=== PATIENT | female | born 1960 | race Caucasian/White ===

== ENCOUNTER → 2021-02-04 13:17 | Outpatient (CLI) | payer BC, SELFPAY ==
--- NOTE | ~2021-02-04 | DEXA_ITS ---
Bone Density Report Name: Anel Fernandez Age: 60 Sex: Female Ethnicity: White Date of : 1960 Indication: postmenopausal; screening for osteoporosis; height loss; Referring Provider: Pancho, Alla Study: Bone densitometry was performed. Exam Date: February 04, 2021 Accession number: [id number] Bone Density: Region BMD T-score Z-score Classification AP Spine (L1-L4) 1.136 0.8 2.1 Normal Femoral Neck (Left) 0.902 0.5 1.7 Normal Total Hip (Left) 1.097 1.3 2.1 Normal Femoral Neck (Right) 0.832 -0.1 1.1 Normal Total Hip (Right) 1.009 0.6 1.4 Normal Total Hip Mean 1.053 1.0 1.8 Normal World Health Organization criteria for BMD impression classify patients as: Normal (T-score at or above -1.0), Osteopenia (T-score between -1.0 and -2.5), or Osteoporosis (T-score at or below -2.5). 10-year Fracture Risk: FRAX not reported because: All T-scores for Spine Total, Hip Total, Femoral Neck at or above -1.0 Clinical Information Provided by Patient: Has used the following medications: Vitamin D, Calcium Patient maximum height was 69 Menopause Age: 42 No regular weight bearing exercise Drinks caffeinated beverages Onset of menses at age 16 Number of children 3 Impression: The patient has normal bone mass. Discussion: BONE DENSITY IS ABOVE THE MINIMUM DESIRABLE LEVEL AT ALL SKELETAL SITES TESTED. This patient?s bone mineral density is above the minimum desirable level (T-score -1.0 or better) at all sites measured. The patient should follow a healthful lifestyle (good nutrition with adequate calcium and vitamin D, and appropriate weight-bearing exercise). Follow-Up: Consider repeating this study in 5 years or sooner if there is some new clinical indication. Reported by: GULSHAN on 02/04/2021 2:08:00 PM. Reviewed, dictated and finalized at location AShaheen NAVA
--- NOTE | ~2021-02-04 | MM_ITS ---
EXAMINATION: MM screening jessie BI w joan HISTORY: Screening TECHNIQUE: Craniocaudal and mediolateral oblique 3-D tomosynthesis images were obtained and synthetic 2-D images were generated. CAD analysis was submitted and interpreted. COMPARISON: 01/25/2017 BREAST PARENCHYMAL COMPOSITION: There are scattered areas of fibroglandular density. FINDINGS: There are developing asymmetries in the right breast. There are stable left breast masses. No new masses, calcifications or architectural distortion in the left breast to suggest malignancy. IMPRESSION: 1. Developing right breast asymmetries. 2. Additional mammographic views and possible breast ultrasound are recommended. BI-RADS Category 0: Incomplete: Needs additional imaging evaluation. Reviewed, dictated and finalized at location A. IMPRESSION: 1. Developing right breast asymmetries. 2. Additional mammographic views and possible breast ultrasound are recommended . BI-RADS Category 0: Incomplete: Needs additional imaging evaluation.
== END ==
PROVIDERS: PCP Physician Assistant; Visit Provider Physician Assistant
DX: Z12.31 Encounter for screening mammogram for malignant neoplasm of breast (principal); Z78.0 Asymptomatic menopausal state; R92.8 Other abnormal and inconclusive findings on diagnostic imaging of breast
CPT/HCPCS: 77063; 77067; 77080

== ENCOUNTER → 2021-02-15 09:14 | Outpatient (CLI) | payer BC, SELFPAY ==
--- NOTE | ~2021-02-15 | MMUS_ITS ---
EXAMINATION: MM diagnostic jessie RT w joan, US breast RT limited HISTORY: Right breast asymmetries on screening mammogram TECHNIQUE: Additional 3-D tomosynthesis images of the right breast were performed and synthetic 2-D i mages were generated. CAD analysis was submitted and interpreted. High resolution limited right breas t ultrasound was performed. COMPARISON: 02/04/2021, 01/25/2017 FINDINGS: MAMMOGRAPHIC FINDINGS: There is a 5 mm oval, obscured, low density mass in the middle third of the lower breast 6:00 locatio n 5.5 cm from the nipple. Asymmetry in the upper right breast described on screening mammogram does n ot persist with spot compression. ULTRASOUND: There is a 5 mm a 3 mm oval, circumscribed, parallel, hypoechoic mass with no posterior features or i nternal vascularity at the 5:00 location 3 cm from the nipple. A 5 mm x 3 mm mass with similar sonogr aphic features is present at the 7:00 location 3 cm from the nipple. IMPRESSION: 1. Probably benign right breast masses. 2. Recommend 6 month follow-up right diagnostic mammogram and ultrasound. BI-RADS category 3, probably benign findings. Reviewed, dictated and finalized at location A. IMPRESSION: 1. Probably benign right breast masses. 2. Recommend 6 month follow-up right diagnostic mammogram and ultrasound. BI-RADS category 3, probably benign findings.
== END ==
PROVIDERS: PCP Physician Assistant; Visit Provider Physician Assistant
DX: R92.8 Other abnormal and inconclusive findings on diagnostic imaging of breast (principal)
CPT/HCPCS: 76642; 77061; 77065; G0279

== ENCOUNTER → 2021-08-17 07:44 | Outpatient (CLI) | payer BC, SELFPAY ==
--- NOTE | ~2021-08-17 | MMUS_ITS ---
EXAMINATION: MM diagnostic jessie RT w joan, US breast RT limited HISTORY: Follow-up right breast masses TECHNIQUE: Additional 3-D tomosynthesis images of the right breast were performed and synthetic 2-D i mages were generated. CAD analysis was submitted and interpreted. High resolution Limited right breas t ultrasound was performed. COMPARISON: Comparison to multiple prior studies sequentially, with oldest reviewed study dated 01/25. BREAST PARENCHYMAL COMPOSITION: Breast composed of scattered areas of fibroglandular density FINDINGS: MAMMOGRAPHIC FINDINGS: There is a small mass in the lower central aspect of the right breast, unchanged from prior examinati ons dating back to 02/04/2021. No suspicious calcifications or architectural distortion. ULTRASOUND: Limited right breast ultrasound: At 5:00, 3 cm from the nipple there is a 4 mm cyst. At 7:00, 3 cm fr om the nipple there is a 4 mm oval hypoechoic mass with parallel orientation, no posterior features o r internal vascularity, consistent with a minimally complicated cyst. The cysts are not significantly changed from prior study. No suspicious masses to suggest malignancy. IMPRESSION: 1. No evidence for malignancy in the right breast. Benign findings. 2. Routine yearly screening mammogram and regular clinical breast examination are recommended. BI-RADS Category 2: Benign finding(s). Reviewed, dictated and finalized at location A. ARCH SCHOLAR IMPRESSION: 1. No evidence for malignancy in the right breast. Benign findings. 2. Routine yearly screening mammogram and regular clinical breast examination a re recommended. BI-RADS Category 2: Benign finding(s).
== END ==
PROVIDERS: PCP Physician Assistant; Visit Provider Physician Assistant
DX: R92.8 Other abnormal and inconclusive findings on diagnostic imaging of breast (principal)
CPT/HCPCS: 76642; 77061; 77065; G0279

== ENCOUNTER 2024-01-01 16:18 | Observation (INO) | payer BC, SELFPAY ==
[2024-01-01] VITALS (21 sets, daily range): BP systolic 114–168; BP diastolic 75–105; PULSE 64–83; RESP 13–36; TEMP 36.2–36.5; O2SAT 92–100; BMI 37.8; BMI 38.0
--- NOTE | ~2024-01-01 | NM_ITS ---
EXAMINATION: NM john stress w perfusion DATE: 01/02/2024 13:16 INDICATION: Chest pain TECHNIQUE: Rest images were obtained following intravenous administration of 9.44 mCi Tc99m tetrofosm in (Myoview). The patient was infused intravenously with Lexiscan (Regadenoson). Then, 30.2 mCi Tc99m tetrofosmin (Myoview) was administered intravenously, and stress images were obtained. Data was zena nstructed into short axis and horizontal and vertical long axis SPECT images. Gated SPECT images were also obtained. COMPARISON: None. FINDINGS: There is no definite reversible or fixed perfusion abnormality to suggest ischemia or infar ction. There is normal left ventricular chamber size, wall motion and ejection fraction. Left ventr icular ejection fraction measures >70%. IMPRESSION: 1. Normal myocardial perfusion at rest and during stress. 2. Left ventricular ejection fraction measuring >70%. Reviewed, dictated and finalized at location B.
--- NOTE | ~2024-01-01 | XR_ITS ---
XR chest 2V Ordering provider: Fredy Soni MD History: 63 years Female with . chest pain x1 wk. worse today . Comparison: None. FINDINGS: MEDIASTINUM: The cardiac silhouette is not enlarged. LUNGS: No infiltrates, effusions or pneumothorax. Minimal atelectasis in the right lung base medially. OTHER: No free air under the diaphragm. Degenerative changes of the spine. IMPRESSION: Minimal atelectasis in the right lung base medially. Otherwise, no acute cardiopulmonary pathology. Reviewed, dictated and finalized at location A. IMPRESSION: Minimal atelectasis in the right lung base medially. Otherwise, no acute cardio pulmonary pathology.
--- NOTE | 2024-01-01 16:18 | ECG_ITS ---
Test Date: 2024-01-01 16:24:00 Measurements Intervals [place] Rate: 76 P: 24 MN: 181 QRS: -7 QRSD: 107 T: 31 QT: 382 QTc: 431 Interpretive Statements SINUS RHYTHM POSSIBLE LEFT ATRIAL ENLARGEMENT LOW QRS VOLTAGE IN PRECORDIAL LEADS INCOMPLETE RIGHT BUNDLE BRANCH BLOCK BORDERLINE ECG No previous ECG available for comparison Electronically Signed On 01-01-2024 20:25:06 CDT by Osei Avalos D.O.
[2024-01-01 16:38] LABS: Basophils Percent Auto 0.5 % (0.2-1.2); Eosinophils Absolute Auto 0.2 K/mm3 (0-0.3); Eosinophils Percent Auto 2.8 % (0-4.4); Hematocrit 44.7 % (37.0-47.0); Immature Granulocyte Absolute 0.01 K/mm3 (0.00-0.031); Immature Granulocyte Percent A 0.1 % (0-0.5); Lymphocytes Absolute Auto 2.44 K/mm3 (0.9-3.2); Mean Corpuscular HGB Conc 33.6 g/dl (32-36); Mean Corpuscular Hemoglobin 30.5 pg (26-34); Mean Platelet Volume 9.7 fl (7.4-10.4); Monocytes Absolute Auto 0.6 K/mm3 (0.1-0.6); Monocytes Percent Auto 8.1 % (2.6-8.5); Neutrophils Absolute Auto 4.1 K/mm3 (1.3-6.7); Neutrophils Percent Auto 55.5 % (45.5-73.1); Platelet Count Result 226 k/mm3 (150-375); Red Blood Count 4.91 M/mm3 (4.2-5.4); Red Cell Distribution Width 13.1 % (11.5-14.5); White Blood Count 7.4 K/mm3 (4.5-10.0)
[2024-01-01 16:47] LABS: Alanine Aminotransferase 25 U/L (6-35); Albumin Level 4.8 g/dL (3.5-5.1); Alkaline Phosphatase 78 U/L (38-126); Anion Gap 7 mmol/L (4-12); Aspartate Amino Transferase 29 U/L (14-36); Bilirubin,Total 0.7 mg/dL (0.2-1.3); Blood Urea Nitrogen 21 mg/dL (7-17); Calcium 9.8 mg/dL (8.4-10.2); Carbon Dioxide 25 mmol/L (22-30); Chloride 107 mmol/L (98-107); Estimated CRCL calculation 85 ml/min; Estimated Glomerular Filt Rate > 60; Glucose 93 mg/dL (65-110); Lipase 75 U/L (23-300); Potassium 4.6 mmol/L (3.4-5.0); Sodium 139 mmol/L (137-145)
[2024-01-01 16:51] LABS: Partial Thromboplastin Time 26.7 Seconds (22.3-36.8)
[2024-01-01 16:52] LABS: INR 0.9; Prothrombin Time 13.1 Seconds (11.1-14.7)
[2024-01-01 16:59] LABS: Troponin I < 0.012 ng/mL (0.000-0.034)
[2024-01-01 17:36] LABS: Influenza A QL RT-PCR Negative (Negative); Influenza B QL RT-PCR Negative (Negative); RSV RNA, RT-PCR Negative (Negative); SARS-CoV-2 RNA PCR Negative (Negative)
--- NOTE | 2024-01-01 18:01 | ED.CHESTPAIN ---
HPI - Chest Pain General Chief Complaint: Chest Pain Stated Complaint: chest pain Time Seen by Provider: 01/01/24 17:54 Source: patient and family Mode of arrival: ambulatory Limitations: no limitations History of Present Illness HPI narrative: 63 YEARS OLD WHITE FEMALE CAME TO THE EMERGENCY ROOM BY PRIVATE CAR WITH HER HOSPITAL COMPLAINING OF INTERMITTENT CHEST TIGHTNESS AND PRESSURE FOR THE LAST 2 WEEKS. WAS SEEN BY HER FAMILY PHYSICIAN IS 6 DAYS AGO AND FOUND TO HAVE ELEVATED BLOOD PRESSURE STARTED ON 5 MG OF AMLODIPINE DAILY. PATIENT REPORTED THAT HER PAIN GOT WORSE. TODAY IS MORE STEADY TIGHTNESS AND HEAVINESS ACROSS THE CHEST, WORSE WITH ACTIVITIES, NOTHING MAKE IT BETTER. CURRENTLY 11/09. PATIENT DENIES SHORTNESS OF BREATH. HER MOM HAD HISTORY OF CONGESTIVE HEART FAILURE. PATIENT DOES NOT SMOKE OR USES DRUGS, DRINKS OCCASIONALLY, HISTORY OF OVERACTIVE BLADDER, AND ALLERGY. 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 Stress is a possibility. Patient stop taking anti cholesterol medication recently because her cholesterol level was okay. Related Data Home Medications Medication Instructions Recorded Confirmed fluticasone propionate 50 1 spray intranasal DAILY 05/22/19 01/01/24 mcg/actuation nasal spray,suspension (Flonase Allergy Relief) loratadine 10 mg tablet (Claritin) 10 mg PO DAILY 05/22/19 01/01/24 solifenacin 5 mg tablet (Vesicare) 10 mg PO DAILY 05/22/19 01/01/24 amlodipine 5 mg tablet 5 mg PO HS 01/01/24 01/01/24 Allergies Allergy/AdvReac Type Severity Reaction Status Date / Time Penicillins Allergy Mild Rash Verified 05/28/19 15:11 codeine AdvReac Mild NAUSEA/VOMI Verified 05/28/19 13:18 TING Review of Systems Review of Systems: All systems reviewed & are unremarkable except as noted in HPI and below PMFSH Family History Family History Mother Hypertension Family history of congestive heart failure Father Family history of diabetes mellitus in first degree relative Sibling Family history of diabetes mellitus in first degree relative Other Diabetes mellitus Family history of allergic disorder Family history of cardiovascular disease Social History Social History Smoking status: Never smoker Alcohol intake: current Drinks per week: 1 Do You Feel Safe in your Home?: Yes Lack of Transportation: No Lack of Food: Never True Current Housing: I Have Housing Concerned About Future Housing: No Difficulty Paying Gas/Electric Bills: No Difficulty Paying for Meds: No Currently Unemployed: No Education: Decline to Answer Difficulty w/ Childcare or Family Care: No Spiritual care concerns: No Exam Narrative: GENERAL APPEARANCE: WELL-DEVELOPED, WELL-NOURISHED SKIN: NORMAL COLOR HEAD: NORMOCEPHALIC, NONTRAUMATIC EYES: CLEAR CONJUNCTIVA ENT: OROPHARYNX NORMAL, EARS NORMAL, NOSE NORMAL NECK: SUPPLE, NONTENDER CHEST AND RESPIRATORY: AIRWAY PATENT, NO RESPIRATORY DISTRESS, NO ACCESSORY MUSCLE USE HEART: REGULAR RATE/RHYTHM ABDOMEN: SOFT, NONTENDER, NO ORGANOMEGALY, QUIET BOWEL SOUNDS VASCULAR: NORMAL PERIPHERAL PULSES, NORMAL CAPILLARY REFILL. 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
[2024-01-01] MEDS: ASPIRIN 81 MG CHEWABLE TABLET 324 MG PO (18:09)
[2024-01-01 18:37] LABS: NT Pro B Type Natriuretic Pept 36 pg/mL (19.9-100)
[2024-01-01 19:44] LABS: D Dimer 0.28 ug/mL (<0.48)
--- NOTE | 2024-01-01 19:52 | ECG_ITS ---
Test Date: 2024-01-01 19:57:59 Measurements Intervals [place] Rate: 65 P: 41 [place]: 190 QRS: -8 QRSD: 111 T: 30 QT: 425 QTc: 443 Interpretive Statements SINUS RHYTHM POSSIBLE LEFT ATRIAL ENLARGEMENT INCOMPLETE RIGHT BUNDLE BRANCH BLOCK BORDERLINE ECG Compared to ECG 01/01/2024 16:24:00 No significant changes Electronically Signed On 01-01-2024 20:32:04 CDT by Osei Avalos D.O.
[2024-01-01 20:25] LABS: Troponin I < 0.012 ng/mL (0.000-0.034)
[2024-01-01] MEDS: NITROGLYCERIN SL 0.4 MG TABLET SUBLINGUAL (20:43)
--- NOTE | 2024-01-01 20:55 | PC.NURSE ---
patient had 1st nitro at 2042 with a chest pain 4/10 and a bp of 137/97. At 2047 pain was 2/10 and bp 130/94, patient was still letting nitro dissolve. after it dissolved fully at 2051 patient reports massive headache side effect from Nitro with bp of 114/86 and requested to not have a 2nd dose. patient continues to report pain of 2/10 and provider notified directly after.
--- NOTE | 2024-01-01 21:36 | ECG_ITS ---
Test Date: 2024-01-01 21:45:21 Measurements Intervals [place] Rate: 72 P: 39 WI: 178 QRS: -10 QRSD: 109 T: 31 QT: 416 QTc: 458 Interpretive Statements SINUS RHYTHM POSSIBLE LEFT ATRIAL ENLARGEMENT LOW QRS VOLTAGE IN PRECORDIAL LEADS INCOMPLETE RIGHT BUNDLE BRANCH BLOCK VOLTAGE CRITERIA FOR LVH MINIMAL Q WAVES- HIGH LATERAL LEADS NONSPECIFIC T-WAVE ABNORMALITY- ANT/INF LEADS BORDERLINE ECG Compared to ECG 01/01/2024 19:57:59 Low QRS voltage now present T-wave abnormality now present Electronically Signed On 01-02-2024 06:20:27 CDT by Osei Avalos D.O.
--- NOTE | 2024-01-01 21:43 | PC.NURSE ---
after telling patient what room they will be admitted to they stated chest pain was 3/10. they continued to eat sandwich and when I came back to get them hooked up to portable tele monitor they began grasping chest and saying the pain was 4/10 again and that they needed the nitro. patient does not appear in any distress. notified doctor and they recommended an ekg and GI cocktail. after reassessing after 15 minutes, if they continue to have pain they recommend 2nd dose of nitro
[2024-01-01] MEDS: BELLADONNA ALK/PHENOB ELIX 10 ML, MAG HYDROX/ALUMINUM HYD/SIMETH 30 ML, LIDOCAINE HCL 2... PO (21:49)
--- NOTE | 2024-01-01 22:22 | PC.NURSE ---
after GI cocktail patient reports pain relief and okayed patient to go upstairs.
--- NOTE | 2024-01-01 22:24 | ADMGEN ---
2200: This patient, Anel Fernandez, was admitted to IMU Room 203-01. Patient/family oriented to hospital policies and general routines including ID bracelet, bed and alarms, visiting hours, pain management, procedures, bathroom and other care routines, personal items, smoking policy, room service/diet, and visiting hours. Information on how to activate the Rapid Response Team has been discussed. Patient/Family are encouraged to report perceived risks to care and to ask questions if they do not understand what they are told or what they should do.
[2024-01-01] MEDS: amLODIPine BESYLATE 5 MG TABLET PO (23:33)
[2024-01-01] MEDS: SOLIFENACIN 5 MG TABLET 10 MG PO (23:45)
--- NOTE | 2024-01-01 23:50 | PM.IMHP ---
H&P: HPI History of Present Illness Date/Time: 01/01/24 23:50 Chief Complaint: Chest pain Narrative: Patient is a pleasant 63-year-old female with a PMH obesity, overactive bladder, recently diagnosed hypertension, seasonal allergies who presents with chest pain for the past 1.5 weeks. She reports it is a tightness in her chest which has been increasing over the past week and worse with exertion. At its worst she becomes short of breath and dizzy and it also radiates to her left armpit. She denies any relieving factors. She does not have 1st degree relative cardiac history. She drinks alcohol infrequently, denies tobacco abuse (tried it when she was 16), denies illicit drug use. Drinks 2 cups of coffee every day. She previously was on a statin but was taken off of it and was supposed to have a repeat lipid panel in 1 month. In the [facility] she received aspirin 324 mg x 1 along with a GI cocktail and nitroglycerin. She feels that her symptoms have greatly improved with the above medications. admitted on 01/01/2024 further cardiac workup. Review of Systems Review of Systems: All systems reviewed & are unremarkable except as noted in HPI and below (Subjective) [facility] Family History Family History Mother Hypertension Family history of congestive heart failure Father Family history of diabetes mellitus in first degree relative Sibling Family history of diabetes mellitus in first degree relative Other Diabetes mellitus Family history of allergic disorder Family history of cardiovascular disease Social History Social History Smoking status: Never smoker Alcohol intake: current Drinks per week: 1 Do You Feel Safe in your Home?: Yes Lack of Transportation: No Lack of Food: Never True Current Housing: I Have Housing Concerned About Future Housing: No Difficulty Paying Gas/Electric Bills: No Difficulty Paying for Meds: No Currently Unemployed: No Education: Decline to Answer Difficulty w/ Childcare or Family Care: No Spiritual care concerns: No Meds Home Medications and Allergies Home Medications Medication Instructions Recorded Confirmed Type fluticasone propionate 50 1 spray intranasal DAILY 05/22/19 01/01/24 History mcg/actuation nasal spray,suspension (Flonase Allergy Relief) loratadine 10 mg tablet (Claritin) 10 mg PO DAILY 05/22/19 01/01/24 History solifenacin 5 mg tablet (Vesicare) 10 mg PO DAILY 05/22/19 01/01/24 History amlodipine 5 mg tablet 5 mg PO HS 01/01/24 01/01/24 History Allergies Allergy/AdvReac Type Severity Reaction Status Date / Time Penicillins Allergy Mild Rash Verified 05/28/19 15:11 codeine AdvReac Mild NAUSEA/VOMI Verified 05/28/19 13:18 TING Vital Signs Vital Signs - 24 hr 01/01/24 16:26 01/01/24 16:52 01/01/24 16:54 Temperature 97.2 F L Pulse Rate 78 78 Respiratory Rate 17 16 Blood Pressure 168/93 H 161/102 H Pulse Oximetry 97 98 99 Oxygen Delivery Room Air Room Air 01/01/24 17:02 01/01/24 17:17 01/01/24 17:32 Temperature Pulse Rate 70 73 Respiratory Rate 14 17 Blood Pressure 150/95 H 140/94 H 140/98 H Pulse Oximetry 99 95 Oxygen Delivery 01/01/24 17:47 01/01/24 18:02 01/01/24 18:47 Temperature Pulse Rate 71 72 68 Respiratory Rate 14 16 20 Blood Pressure 138/90 159/105 H 145/99 H Pulse Oximetry 98 99 96 Oxygen Delivery 01/01/24 19:32 01/01/24 20:17 01/01/24 20:45 Temperature Pulse Rate 83 71 64 Respiratory Rate 13 15 Blood Pressure 136/99 H 139/94 H Pulse Oximetry 100 96 Oxygen Delivery 01/01/24 20:32 01/01/24 20:47 01/01/24 20:48 Temperature Pulse Rate 69 71 66 Respiratory Rate 36 H 18 17 Blood Pressure 137/97 H 156/103 H 130/94 H Pulse Oximetry 96 92 98 Oxygen Delivery 01/01/24 20:52 01/01/24 21:01 01/01/24 21:17 Temperature P
[2024-01-02] VITALS (13 sets, daily range): BP systolic 121–143; BP diastolic 84–88; PULSE 53–94; RESP 18–20; TEMP 35.6–36.6; O2SAT 94–97
--- NOTE | 2024-01-02 | EST_ITS ---
Patient Info Name: Anel Fernandez Age: 63 years : 1960 Gender: Female Ht: 68 in Wt: 200 lbs BSA: 2.11 m2 HR: 73 bpm BP: 134 / 98 mmHg Heart Rhythm: Sinus Rhythm Exam Date: 01/02/2024 12:21 PM Exam Location: Echo Lab Patient Status: Inpatient Admit Date: 01/01/2024 Staff Ordering Physician: Josseline May MD Attending Provider: Josseline May MD Exercise Technologist: Mahsa Cavazos, CT Nurse: Tosha Chew APN Exam Type: CA stress john w NM Study Info Indications R07.89 - Other chest pain A regadenoson stress test was performed. Summary 1. No abnormal ST/T wave changes diagnostic of ischemia. 2. Please correlate with nuclear medicine images, reported separately. 3. Stress test supervised by Tosha Chew NP. Stress test interpreted by Link Jones MD. Protocol: Lexiscan Stress ECG Details Stage: REST Duration (min): 1 min : 20 sec HR (bpm): 70 SBP (mmHg): 134 DBP (mmHg): 98 Stage: REST Duration (min): 5 min : 37 sec HR (bpm): 66 SBP (mmHg): 134 DBP (mmHg): 98 Stage: STAGE 1 Duration (min): 1 min : 0 sec HR (bpm): 87 SBP (mmHg): 128 DBP (mmHg): 100 Stage: RECOVERY Duration (min): 1 min : 0 sec HR (bpm): 90 SBP (mmHg): 128 DBP (mmHg): 100 Stage: RECOVERY Duration (min): 2 min : 0 sec HR (bpm): 88 SBP (mmHg): 128 DBP (mmHg): 100 Stage: RECOVERY Duration (min): 3 min : 0 sec HR (bpm): 82 SBP (mmHg): 136 DBP (mmHg): 93 Stage: RECOVERY Duration (min): 3 min : 27 sec HR (bpm): 83 SBP (mmHg): 136 DBP (mmHg): 93 Rest HR: 66 bpm Peak HR: 94 bpm Rest Sys BP: 134 mmHg Peak Sys BP: 136 mmHg Max Pred HR: 159 bpm % Max Pred HR: 59 % Target HR: 135 bpm Max RPP: 12,784 bpm*mmHg Total Time: 1 min : 0 sec Rest Power BP: 98 mmHg Peak Power BP: 93 mmHg Total Dose: 0.4 mg Resting ECG Sinus rhythm. Incomplete right bundle branch block. Baseline nonspecific STTW abnormality. Stress ECG Sinus rhythm. No abnormal ST/T wave changes diagnostic of ischemia. Arrhythmias None. Report Signatures
--- NOTE | 2024-01-02 | ECHO_ITS ---
Patient Info Name: Anel Fernandez Age: 63 years : 1960 Gender: Female Ht: 68 in Wt: 250 lbs BSA: 2.38 m2 HR: 62 bpm BP: 143 / 85 mmHg Heart Rhythm: Sinus Rhythm Technical Quality: Fair Exam Date: 01/02/2024 1:53 PM Exam Location: Echo Lab Patient Status: Inpatient Admit Date: 01/01/2024 Staff Ordering Physician: Sabas Dietz MD Park Attendant: Ginger Proctor RDCS Attending Provider: Josseline May MD Exam Type: CA echo dop color flow w con Study Info Indications R07.9 - Chest pain, unspecified Complete two-dimensional, color flow and Doppler transthoracic echocardiogram is performed with contrast to opacify the left ventricle and to improve the deliniation of the left ventricle endocardial borders. Contrast/Agitated Saline Contrast/Ag. Saline: Definity Amount: 2.00 ml Administered By: Ginger Proctor RDCS Existing IV Access: Yes IV Access Condition: patent with no signs of infiltration Summary 1. Left ventricular chamber dimension is normal. 2. Left ventricular systolic function is normal, estimated at 60-65%. 3. There is mildly increased left ventricular wall thickness. 4. The left ventricular diastolic function is grade I diastolic dysfunction. 5. Right ventricular systolic function is normal. 6. There is mild aortic valve regurgitation. 7. There is small anterior pericardial effusion. Left Ventricle Left ventricular chamber dimension is normal. Left ventricular systolic function is normal, estimated at 60-65%. There is mildly increased left ventricular wall thickness. The left ventricular diastolic function is grade I diastolic dysfunction. Right Ventricle Right ventricular chamber dimension is normal. Right ventricular systolic function is normal. Left Atria Left atrial chamber dimension is normal. Right Atria Right atrial chamber dimension is normal. Atrial Septum Intact interatrial septum visualized by color flow imaging. Aortic Valve The aortic valve is trileaflet. There is no aortic valve stenosis. There is mild aortic valve regurgitation. There is mild aortic valve calcification. Pulmonic Valve The pulmonic valve is not well visualized. There is trace pulmonic regurgitation. Mitral Valve There is trace mitral valve regurgitation. The mitral valve annulus is mildly calcified. Tricuspid Valve There is trace tricuspid valve regurgitation. Pericardium/Pleural There is small anterior pericardial effusion. Inferior Vena Cava Normal inferior vena cava with >50% collapse upon inspiration consistent with normal right atrial pressure, 3 mmHg. Aorta The aortic root size at the sinus of Valsalva is normal. Left Ventricular Outflow Tract Name Value Normal LVOT 2D LVOT Diameter 2.01 cm LVOT Doppler LVOT Peak Gradient 3 mmHg LVOT Mean Gradient 2 mmHg LVOT VTI 17.97 cm LVOT VTI/AV VTI Ratio 0.66 LVOT Stroke Volume 57.12 ml LVOT CO 3.48 l/min LVOT CI 1.46 L/min/m2 Pulmonic Valve
[2024-01-02 00:09] LABS: Cholesterol 246 mg/dL (0-200); HDL Direct 40 mg/dL; Triglycerides 250 mg/dL (<150)
[2024-01-02 00:12] LABS: Hemoglobin A1C 5.6 % (<5.7)
[2024-01-02 00:20] LABS: LDL Cholesterol Direct 160 mg/dL
[2024-01-02] MEDS: FLUTICASONE PROPIONATE 0.05% NA SPR 16 GM BTL (*BKC) 1 SPRAY NASAL (08:27)
[2024-01-02] MEDS: ASPIRIN 81 MG CHEWABLE TABLET PO (08:27)
[2024-01-02] MEDS: LORATADINE 10 MG TABLET PO (08:27)
[2024-01-02] MEDS: PERFLUTREN LIPID MICROSPHERES 1.5 ML VIAL DILUTED TO 10 ML TOTAL VOLUME IV PUSH (14:21)
--- NOTE | 2024-01-02 15:06 | IVDEFINITY ---
Prior to administration of IV Definity the patient was educated on the risks and benefits of the imaging enhancing agent including potential adverse side effects. The patient verbalized understanding. Allergies were verified. No exclusion criteria were identified and at least one of the following inclusion criteria were met: 1) physician request, 2) patient technically difficult to image (per the [place] [employer] guidelines of two or more segments not discernable within the apical view), or 3) questionable left ventricular function. ?
--- NOTE | 2024-01-02 15:59 | PM.IMPN ---
Progress Note: A&P Assessment and Plan (1) Chest pain: Code(s): R07.9 - Chest pain, unspecified Status: Acute Plan Patient is a pleasant 63-year-old female with a PMH obesity, overactive bladder, recently diagnosed hypertension, seasonal allergies who presents with chest pain for the past 1.5 weeks. She reports it is a tightness in her chest which has been increasing over the past week and worse with exertion. At its worst she becomes short of breath and dizzy and it also radiates to her left armpit. She denies any relieving factors. She does not have 1st degree relative cardiac history. She drinks alcohol infrequently only a few times per month when she goes out to dinner, denies tobacco abuse (tried it when she was 16), denies illicit drug use. Drinks 2 cups of coffee every day. Denies drinking energy drinks. She previously was on a statin but was taken off of it and was supposed to have a repeat lipid panel in 1 month. In the [facility] she received aspirin 324 mg x 1 along with a GI cocktail and nitroglycerin. She feels that her symptoms have greatly improved with the above medications. admitted on 01/01/2024 further cardiac workup. HEART score 4. Lexiscan stress test ordered. will also get echocardiogram. Continue nitroglycerin 0.4 mg sublingual Q 5 p.r.n.. Continue aspirin 81 mg daily. Lipids with LDL 160. A1c at 5.6 Troponin negative x2. EKG demonstrating sinus rhythm with incomplete right bundle branch block. Chest x-ray demonstrating atelectasis minimally in the right lung base. 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 Full code. SCDs. Subjective Date/time seen: 01/02/24 15:59 Interval history: no further chest pain. Going for stress test today. No nausea vomiting. Has some cough. Review of Systems Review of Systems: All systems reviewed & are unremarkable except as noted in HPI and below (Subjective) Exam Narrative: GENERAL APPEARANCE: WELL-DEVELOPED, WELL-NOURISHED SKIN: NORMAL COLOR HEAD: NORMOCEPHALIC, NONTRAUMATIC EYES: CLEAR CONJUNCTIVA ENT: OROPHARYNX NORMAL, EARS NORMAL, NOSE NORMAL NECK: SUPPLE, NONTENDER CHEST AND RESPIRATORY: AIRWAY PATENT, NO RESPIRATORY DISTRESS, NO ACCESSORY MUSCLE USE HEART: REGULAR RATE/RHYTHM ABDOMEN: SOFT, NONTENDER, NO ORGANOMEGALY, QUIET BOWEL SOUNDS VASCULAR: NORMAL PERIPHERAL PULSES, NORMAL CAPILLARY REFILL. 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, NO GROSS MOTOR DEFICIT Objective Data Vital Signs Vital Signs: Vital Signs - 24 hr 01/01/24 16:26 01/01/24 16:52 01/01/24 16:54 Temperature 97.2 F L Pulse Rate 78 78 Respiratory Rate 17 16 Blood Pressure 168/93 H 161/102 H Pulse Oximetry 97 98 99 Oxygen Delivery Room Air Room Air 01/01/24 17:02 01/01/24 17:17 01/01/24 17:32 Temperature Pulse Rate 70 73 Respiratory Rate 14 17 Blood Pressure 150/95 H 140/94 H 140/98 H Pulse Oximetry 99 95 Oxygen Delivery 01/01/24 17:47 01/01/24 18:02 01/01/24 18:47 Temperature Pulse Rate 71 72 68 Respiratory Rate 14 16 20 Blood Pressure 138/90 159/105 H 145/99 H Pulse Oximetry 98 99 96 Oxygen Delivery 01/01/24 19:32 01/01/24 20:17 01/01/24 20:45 Temperature Pulse Rate 83 71 64 Respiratory Rate 13 15 Blood Pressure 136/99 H 139/94 H Pulse Oximetry 100 96 Oxygen Delivery 01/01/24 20:32 01/01/24 20:47 01/01/24 20:48 Temperature Pulse Rate 69 71 66 Respiratory Rate 36 H 18 17 Blood Pressure 137/97 H 156/103 H 130/94 H Pulse Oximetry 96 92 98 Oxygen Delivery 01/01/24 20:52 01/01/24 21:01 01/01/24 21:17 Temperature Pulse Rate 79 68 64 Respiratory Rate 13 14 16 Blood Pressure 114/86 133/88 154/94 H Pulse Oximetry 96 95 96 Oxygen Delivery 01/01/24 21:48 01/01/24 22:20 01/01/24 23:28 Temperature 97.7 F Pulse Rate 73 74 Respiratory Rate 16 18 Blood Pressure 1
--- NOTE | 2024-01-02 17:40 | PM.DS ---
DS: Admitting Diagnosis Discharge Date 01/02/2024 Admitting Diagnosis Chest pain DS: Discharge Diagnosis Discharge Diagnosis (1) Chest pain: Code(s): R07.9 - Chest pain, unspecified Status: Acute DS: Summary Hospital Course Hospital Course: Patient is a pleasant 63-year-old female with a PMH obesity, overactive bladder, recently diagnosed hypertension, seasonal allergies who presents with chest pain for the past 1.5 weeks. She reports it is a tightness in her chest which has been increasing over the past week and worse with exertion. At its worst she becomes short of breath and dizzy and it also radiates to her left armpit. She denies any relieving factors. She does not have 1st degree relative cardiac history. She drinks alcohol infrequently only a few times per month when she goes out to dinner, denies tobacco abuse (tried it when she was 16), denies illicit drug use. Drinks 2 cups of coffee every day. Denies drinking energy drinks. She previously was on a statin but was taken off of it and was supposed to have a repeat lipid panel in 1 month. In the [place] ER she received aspirin 324 mg x 1 along with a GI cocktail and nitroglycerin. She feels that her symptoms have greatly improved with the above medications. admitted on 01/01/2024 further cardiac workup. HEART score 4. Lexiscan stress test ordered which came back normal. Echocardiogram was also obtained but was pending at the time of discharge. D-dimer was negative. Continue nitroglycerin 0.4 mg sublingual Q 5 p.r.n.. Continue aspirin 81 mg daily. Lipids with LDL 160. A1c at 5.6 Troponin negative x2. EKG demonstrating sinus rhythm with incomplete right bundle branch block. Chest x-ray demonstrating atelectasis minimally in the right lung base. Has some cough which could be related to reflux disease or postnasal drip. She is already on Flonase nasal spray at home. She will continue to follow-up with PCP with regard to further management. For her hyperlipidemia atorvastatin will be started at discharge. 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 Full code. SCDs. Time Spent with Patient Time attestation: Total time spent providing and/or coordinating discharge services: 35 minutes Exam Narrative: GENERAL APPEARANCE: WELL-DEVELOPED, WELL-NOURISHED SKIN: NORMAL COLOR HEAD: NORMOCEPHALIC, NONTRAUMATIC EYES: CLEAR CONJUNCTIVA ENT: OROPHARYNX NORMAL, EARS NORMAL, NOSE NORMAL NECK: SUPPLE, NONTENDER CHEST AND RESPIRATORY: AIRWAY PATENT, NO RESPIRATORY DISTRESS, NO ACCESSORY MUSCLE USE HEART: REGULAR RATE/RHYTHM ABDOMEN: SOFT, NONTENDER, NO ORGANOMEGALY, QUIET BOWEL SOUNDS VASCULAR: NORMAL PERIPHERAL PULSES, NORMAL CAPILLARY REFILL. 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 Otherwise, no acute cardiopulmonary pathology. Lexiscan Stress Test 01/02/24 13:17 IMPRESSION: 1. Normal myocardial perfusion at rest and during stress. 2. Left ventricular ejection fraction measuring >70%. Discharge Plan Discharge Attending physician on discharge: Sabas Dietz Discharging Clinician: Sabas Dietz Anticipated Discharge Date/Time: 01/02/24 17:38 Patient Disposition: Home, Self-Care Activity: as tolerated Diet: heart healthy Discharge Instructions: Follow-up with PCP with regard to echocardiogram Patient Instructions: Antibiotic Form, C
== END 2024-01-02 18:06 | disposition home or self-care (01) ==
LOC: ANHED 21:12 → ANHIMU 22:25
PROVIDERS: Emergency Medicine; Admitting Provider General Practice; Emergency Provider Emergency Medicine; PCP Physician Assistant; Visit Provider Internal Medicine
DX: R07.9 Chest pain, unspecified (principal); Z82.49 Family history of ischemic heart disease and other diseases of the circulatory system; I10 Essential (primary) hypertension; N32.81 Overactive bladder; I35.1 Nonrheumatic aortic (valve) insufficiency; Z20.822 Contact with and (suspected) exposure to COVID-19; Z79.899 Other long term (current) drug therapy
CPT/HCPCS: 36415; 71046; 78452; 80053; 80061; 83036; 83690; 83880; 84484; 85025; 85380; 85610; 85730; 87637; 93005; 93017; 96374; 99285; A9270; A9502; C8929; G0378; J2785; Q9957

== ENCOUNTER 2024-08-08 00:34 | Day surgery (SDC) | payer BC, SELFPAY ==
[2024-06-21 14:35] VITALS: BMI 33.4
--- NOTE | 2024-07-07 13:13 | SUR.PREOP ---
Called pt to cancel her procedure on 07/09 due to provider availability. Pt rescheduled to 09/03 at 1330.
--- NOTE | 2024-07-11 08:34 | SUR.PREOP ---
Called pt this am to offer her an earlier procedure date of 08/19. Pt declined appointment since [birth year].
--- NOTE | 2024-07-23 14:41 | PC.NURSE ---
Pt rescheduled for colonoscopy. Prior interview completed 06/21/24. Pt called and updated with new date/time of procedure.
--- OUTSIDE RECORDS SUMMARY | 2024-08-02 02:04 | XMS_ITS | Data Portability ---
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 Lab HbA1c (hemoglobin A1c), blood 2022 023 [email or web address] 4 [facility], [address], [place], [address], 3 14:49:18 insulin, serum 2022 023 [email or web address] [facility], [address], [address], [place], [address], 4 10:22:30 CMP, serum or plasma 2022 023 [email or web address] 4 [facility], [address], [address], [place], [address], 3 14:49:52 TSH + free T4, serum 2022 023 [email or web address] 4 [facility], [address], [address], [place], [address], 3 14:49:31 urinalysis, dipstick, reflex micro 2022 023 [email or web address] [facility], [address], [address], [place], [address], 4 10:22:31 iron + total iron-bindin g capacity (TIBC), serum 2022 023 [email or web address] [facility], [address], [address], [place], [address], 4 10:22:30 ferritin, serum or plasma 2022 023 [email or web address] 4 [facility], [address], [address], [place], [address], 3 14:50:21 CBC w/ auto diff 2022 023 [email or web address] [facility], [address], [address], [place], [address], 4 10:22:30 lipid panel, serum 2022 023 [email or web address] [facility], [address], [address], [place], [address], 4 10:22:30 HbA1c (hemoglobin A1c), blood 2022 023 [email or web address] [facility], [address], [address], [place], [address], 4 10:22:31 insulin, serum 2022 023 [email or web address] [facility], [address], [address], [place], [address], 4 10:22:31 CMP, serum or plasma 2022 023 [email or web address] [facility], [address], [address], [place], [address], 4 10:22:32 TSH + free T4, serum 2022 023 luba Lucia, [address], [address], [place], [address], 4 10:22:32 lipid panel, serum 2022 023 [email or web address] Martinezcostu, [address], [address], [place], [address], 4 10:22:31 urinalysis, dipstick, reflex micro 2022 023 luba Lucia, [address], [address], [place], [address], 4 10:22:32 iron + total iron-bindin g capacity (TIBC), serum 2022 023 luba Lucia, [address], [address], [place], [address], 4 10:22:31 ferritin, serum or plasma 2022 023 luba Lucia, [address], [address], [place], [address], 4 10:22:31 CBC w/ auto diff 2022 023 luba Lucia, [address], [address], [place], [address], 4 10:22:32 Referral None recorded. Procedures None recorded. Surgeries None recorded. Imaging MAMMO, screening, digital, bilateral 2022 023 [email or web address] 4 [facility], [address], [address], [place], [address], 3 14:50:06 MAMMO, screening, digital, bilateral 2022 023 [email or web address] [facility], [address], [address], [place], [address], 4 10:07:51 DEXA 2022 023 [email or web address] [facility], [address], [address], [place], [address], 4 10:07:51 Medication Orders doxycycline hyclate 100 mg capsule 2022 023 [email or web address] [facility] [place], [address], 3 11:48:15 Patient TargetsNo targets recorded. Patient InstructionsNo instructions recorded. Reason for Referral None Reported. Results Created Date Observation Date Name Description Value Unit Range Abnormal Flag Note LastModifiedBy Organization Detail LastModifiedTime 07/05/19 22 07/05/2021 GIAN DAMIAN V LP DEFAU LT gian crawfordrev LP default commen t A hand- writt en panel /prof ile was recei leoncio from your offic e. In accor dance with the [facility] Gian uous Test Code Polic y dated December 2002, we have compl eted your order by using the close st curre ntly or forme rly recog nized AMA panel . We have laine willett Lipid Panel , Test Code #[address]. If this is not the testi ng you wishe d to recei ve on this speci men, pleas e conta ct the [facility] Clien t Inqui ry/Te chnic al Servi jessica Depar tment to hasmukh fy the test order . We appre ciate your busin ess. Not Available [facility] ([facility]) [address] [facility], [place], [address], 07/10/2021 07:10:47 07/05/19 22 07/05/2021 AMBSHAYY ABBRE V CMP14 DEFAU LT ambshayy abbrev CMP14 default commen t A hand- writt en panel /prof case was recei leoncio from your offic e. In accor dance with the [facility] Gian linous Test Code Polic y dated December 2002, we have compl eted your order by using the close st curre ntly or forme rly recog nized AMA panel . We have assig tamie Compr ehens rex Metab olic Panel (14), Test Code #[address]. If this is not the testi ng you wishe d to recei ve on this speci men, pleas e conta ct the [facility] Clien t Inqui ry/Te chnic al Servi jessica Depar tment to hasmukh fy the test order . We appre ciate your busin ess. Not Available [facility] ([facility]) [address] [place], [address], 07/10/2021 07:10:47 07/05/19 22 07/06/2021 C-BUFFY CTIVE PROTE IN, QUANT C-reactive protein, quant 1 mg/L 0-10 Not Available [facility] ([facility]) [address] [place], [address], 07/10/2021 07:10:47 07/05/19 22 07/06/2021 JERSEY TIN ferritin 327 NG/mL 15-150 above high normal Not Available [facility] ([facility]) [address] [place], [address], 07/10/2021 07:10:46 07/05/19 22 07/06/2021 SEDIM ENTAT ION RATE- WESTE RGREN sedimentatio n rate-westerg madonna 7 mm/HR 0-40 Not Available [facility] ([facility]) [address] [place], [address], 07/10/2021 07:10:46 07/05/19 22 07/06/2021 ANTIN UCLEA R ANTIB ODIES DIREC T ELLYN direct negati ve negati ve Not Available [facility] ([facility]) [address] [place], [address], 07/10/2021 07:10:45 07/05/19 22 07/06/2021 URIC ACID uric acid 6.1 mg/dL 3.0-7. 2 Thera peuti c henri t for gout patie nts: <6.0 Not Available [facility] ([facility]) [address] [facility], [place], [address], 07/10/2021 07:10:45 07/05/19 22 07/06/2021 ANTI- CCP AB, IGG/I GA anti-ccp Ab, IgG/IgA 3 units 0-19 Negat rex <20 Weak posit rex 20 - 39 Moder ate posit rex 40 - 59 Stron g posit rex >59 Not Available [facility] ([facility]) [address] [facility], [place], [address], 07/10/2021 07:10:44 07/05/19 22 07/06/2021 RHEUM ATOID FACTO R (RF) rheumatoid factor (rf) 10.4 IU/mL <14.0 Not Available [facility] ([facility]) [address] [place], [address], 07/10/2021 07:10:44 07/05/19 22 07/06/2021 HEMOG LOBIN A1C hemoglobin A1C 5.7 % 4.8-5. 6 above high normal Predi abete s: 5.7 - 6.4 Diabe see: >6.4 Glyce pancho contr ol for adult s with diabe see: <7.0 Not Available [facility] ([facility]) [address] [place], [address], 07/10/2021 07:10:44 07/05/19 22 07/06/2021 IRON AND TIBC iron bind.cap.(TI BC) 299 ug/dL 250-45 0 Not Available [facility] ([facility]) [address] [place], [address], 07/10/2021 07:10:43 07/05/19 22 07/06/2021 IRON AND TIBC UIBC 197 ug/dL 131-42 5 Not Available [facility] ([facility]) [address] [facility], [place], [address], 07/10/2021 07:10:43 07/05/19 22 07/06/2021 IRON AND TIBC iron 102 ug/dL 27-159 Not Available [facility] ([facility]) [address] [place], [address], 07/10/2021 07:10:43 07/05/19 22 07/06/2021 IRON AND TIBC iron saturation 34 % 15-55 Not Available [facility] ([facility]) [address] [place], [address], 07/10/2021 07:10:43 07/05/19 22 07/06/2021 LIPID PANEL cholesterol, total 178 mg/dL 100-19 9 Not Available [facility] ([facility]) [address] [place], [address], 07/10/2021 07:10:43 07/05/19 22 07/06/2021 LIPID PANEL triglyceride s 149 mg/dL 0-149 Not Available [facility] ([facility]) [address] [place], [address], 07/10/2021 07:10:43 07/05/19 22 07/06/2021 LIPID PANEL HDL cholesterol 47 mg/dL >39 Not Available [facility] ([facility]) [address] [place], [address], 07/10/2021 07:10:43 07/05/19 22 07/06/2021 LIPID PANEL VLDL cholesterol kaylie 26 mg/dL 5-40 Not Available [facility] ([facility]) [address] [facility] [place], [address], 07/10/2021 07:10:43 07/05/19 22 07/06/2021 LIPID PANEL LDL chol calc ([facility]) 105 mg/dL 0-99 above high normal Not Available [facility] ([facility]) [address] [facility] [place], [address], 07/10/2021 07:10:43 07/05/19 22 07/06/2021 LIPID PANEL comment: fnps Not Available [facility] ([facility]) [address] [facility] [place], [address], 07/10/2021 07:10:43 07/05/19 22 07/06/2021 UA/M W/RFL X CULTU RE, COMP specific gravity 1.026 1.005- 1.030 Not Available [facility] ([facility]) [address] [facility], [place], [address], 07/10/2021 07:10:42 07/05/19 22 07/06/2021 UA/M W/RFL X CULTU RE, COMP pH 6.0 5.0-7. 5 Not Available [facility] ([facility]) [address] [facility] [place], [address], 07/10/2021 07:10:42 07/05/19 22 07/06/2021 UA/M W/RFL X CULTU RE, COMP urine-color yellow yellow Not Available [facility] ([facility]) [address] [facility] [place], [address], 07/10/2021 07:10:42 07/05/19 22 07/06/2021 UA/M W/RFL X CULTU RE, COMP appearance clear clear Not Available [facility] ([facility]) [address] [facility] [place], [address], 07/10/2021 07:10:42 07/05/19 22 07/06/2021 UA/M W/RFL X CULTU RE, COMP WBC esterase negati ve negati ve Not Available [facility] ([facility]) [address] [place], [address], 07/10/2021 07:10:42 07/05/19 22 07/06/2021 UA/M W/RFL X CULTU RE, COMP protein trace negati ve/tra ce Not Available [facility] ([facility]) [address] [place], [address], 07/10/2021 07:10:42 07/05/19 22 07/06/2021 UA/M W/RFL X CULTU RE, COMP glucose negati ve negati ve Not Available [facility] ([facility]) [address] [place], [address], 07/10/2021 07:10:42 07/05/19 22 07/06/2021 UA/M W/RFL X CULTU RE, COMP ketones trace negati ve abnormal Not Available [facility] ([facility]) [address] [place], [address], 07/10/2021 07:10:42 07/05/19 22 07/06/2021 UA/M W/RFL X CULTU RE, COMP occult blood negati ve negati ve Not Available [facility] ([facility]) [address] [place], [address], 07/10/2021 07:10:42 07/05/19 22 07/06/2021 UA/M W/RFL X CULTU RE, COMP bilirubin negati ve negati ve Not Available [facility] ([facility]) [address] [place], [address], 07/10/2021 07:10:42 07/05/19 22 07/06/2021 UA/M W/RFL X CULTU RE, COMP urobilinogen ,semi-qn 0.2 mg/dL 0.2-1. 0 Not Available [facility] ([facility]) [address] [facility], [place], [address], 07/10/2021 07:10:42 07/05/19 22 07/06/2021 UA/M W/RFL X CULTU RE, COMP nitrite, urine negati ve negati ve Not Available [facility] ([facility]) [address] [facility], [place], [address], 07/10/2021 07:10:42 07/05/19 22 07/06/2021 UA/M W/RFL X CULTU RE, COMP microscopic examination commen t Micro scopi c follo ws if indic ated. Not Available [facility] ([facility]) [address] [facility], [place], [address], 07/10/2021 07:10:42 07/05/19 22 07/06/2021 UA/M W/RFL X CULTU RE, COMP microscopic examination see below: Micro scopi c was indic ated and was perfo rmed. Not Available [facility] ([facility]) [address] [facility], [place], [address], 07/10/2021 07:10:42 07/05/19 22 07/06/2021 UA/M W/RFL X CULTU RE, COMP WBC 0-5 /hpf 0 - 5 Not Available [facility] ([facility]) [address] [place], [address], 07/10/2021 07:10:42 07/05/19 22 07/06/2021 UA/M W/RFL X CULTU RE, COMP RBC 0-2 /hpf 0 - 2 Not Available [facility] ([facility]) [address] [facility], [place], [address], 07/10/2021 07:10:42 07/05/19 22 07/06/2021 UA/M W/RFL X CULTU RE, COMP epithelial cells (non renal) >10 /hpf 0 - 10 abnormal Not Available [facility] ([facility]) [address] [facility], [place], [address], 07/10/2021 07:10:42 07/05/19 22 07/06/2021 UA/M W/RFL X CULTU RE, COMP epithelial cells (renal) fnps Not Available [facility] ([facility]) [address] [facility], [place], [address], 07/10/2021 07:10:42 07/05/19 22 07/06/2021 UA/M W/RFL X CULTU RE, COMP casts none seen /lpf none seen Not Available [facility] ([facility]) [address] [facility], [place], [address], 07/10/2021 07:10:42 07/05/19 22 07/06/2021 UA/M W/RFL X CULTU RE, COMP cast type fnps Not Available [facility] ([facility]) [address] [facility], [place], [address], 07/10/2021 07:10:42 07/05/19 22 07/06/2021 UA/M W/RFL X CULTU RE, COMP crystals fnps Not Available [facility] ([facility]) [address] [facility], [place], [address], 07/10/2021 07:10:42 07/05/19 22 07/06/2021 UA/M W/RFL X CULTU RE, COMP crystal type fnps Not Available [facility] ([facility]) [address] [facility], [place], [address], 07/10/2021 07:10:42 07/05/19 22 07/06/2021 UA/M W/RFL X CULTU RE, COMP mucus threads fnps Not Available [facility] ([facility]) [address] [place], [address], 07/10/2021 07:10:42 07/05/19 22 07/06/2021 UA/M W/RFL X CULTU RE, COMP bacteria modera te none seen/f ew abnormal Not Available [facility] ([facility]) [address] [facility], [place], [address], 07/10/2021 07:10:42 07/05/19 22 07/06/2021 UA/M W/RFL X CULTU RE, COMP yeast fnps Not Available [facility] ([facility]) [address] [facility], [place], [address], 07/10/2021 07:10:42 07/05/19 22 07/06/2021 UA/M W/RFL X CULTU RE, COMP trichomonas fnps Not Available [facility] ([facility]) [address] [facility], [place], [address], 07/10/2021 07:10:42 07/05/19 22 07/06/2021 UA/M W/RFL X CULTU RE, COMP comment fnps Not Available [facility] ([facility]) [address] [facility], [place], [address], 07/10/2021 07:10:42 07/05/19 22 07/06/2021 UA/M W/RFL X CULTU RE, COMP urinalysis reflex commen t This speci men has refle xed to a Urine Cultu re. Not Available [facility] ([facility]) [address] [facility], [place], [address], 07/10/2021 07:10:42 07/05/19 22 07/10/2021 UA/M W/RFL X CULTU RE, COMP urine culture,comp rehensive final report Not Available [facility] ([facility]) [address] [facility], [place], [address], 07/10/2021 07:10:42 07/05/19 22 07/10/2021 UA/M W/RFL X CULTU RE, COMP result 1 commen t Mixed uroge nital david Great er than 100,0 00 colon y formi ng units per mL Not Available [facility] ([facility]) [address] [place], [address], 07/10/2021 07:10:42 07/05/19 22 07/06/2021 COMP. METAB OLIC PANEL (14) AST (SGOT) 22 IU/L 0-40 Not Available [facility] ([facility]) [address] [place], [address], 07/10/2021 07:10:42 07/05/19 22 07/06/2021 COMP. METAB OLIC PANEL (14) ALT (SGPT) 22 IU/L 0-32 Not Available [facility] ([facility]) [address] [place], [address], 07/10/2021 07:10:42 07/05/19 22 07/06/2021 COMP. METAB OLIC PANEL (14) glucose 104 mg/dL 65-99 above high normal Not Available [facility] ([facility]) [address] [place], [address], 07/10/2021 07:10:42 07/05/19 22 07/06/2021 COMP. METAB OLIC PANEL (14) BUN 14 mg/dL 6-24 Not Available [facility] ([facility]) [address] [place], [address], 07/10/2021 07:10:42 07/05/19 22 07/06/2021 COMP. METAB OLIC PANEL (14) creatinine 0.85 mg/dL 0.57-1 .00 Not Available [facility] ([facility]) [address] [place], [address], 07/10/2021 07:10:42 07/05/19 22 07/06/2021 COMP. METAB OLIC PANEL (14) eGFR if nonafricn AM 76 mL/mi n/1.7 3 >59 Not Available [facility] ([facility]) [address] [facility], [place], [address], 07/10/2021 07:10:42 07/05/19 22 07/06/2021 COMP. METAB OLIC PANEL (14) eGFR if africn AM 87 mL/mi n/1.7 3 >59 In accor dance with recom menda tions from the NKF-A SN Task force , [facility] is in the proce ss of updat ing its eGFR calcu latio n to the 2020 CKD-E PI creat inine equat ion that estim ates kidne y funct ion witho ut a race varia ble. Not Available [facility] ([facility]) [address] [facility], [place], [address], 07/10/2021 07:10:42 07/05/19 22 07/06/2021 COMP. METAB OLIC PANEL (14) BUN/creatini ne ratio 16 9-23 Not Available [facility] ([facility]) [address] [facility], [place], [address], 07/10/2021 07:10:42 07/05/19 22 07/06/2021 COMP. METAB OLIC PANEL (14) sodium 142 mmol/ L 134-14 4 Not Available [facility] ([facility]) [address] [place], [address], 07/10/2021 07:10:42 07/05/19 22 07/06/2021 COMP. METAB OLIC PANEL (14) potassium 5.0 mmol/ L 3.5-5. 2 Not Available [facility] ([facility]) [address] [place], [address], 07/10/2021 07:10:42 07/05/19 22 07/06/2021 COMP. METAB OLIC PANEL (14) chloride 108 mmol/ L 96-106 above high normal Not Available [facility] ([facility]) [address] [place], [address], 07/10/2021 07:10:42 07/05/19 22 07/06/2021 COMP. METAB OLIC PANEL (14) carbon dioxide, total 22 mmol/ L Not Available [facility] ([facility]) [address] [place], [address], 07/10/2021 07:10:42 07/05/19 22 07/06/2021 COMP. METAB OLIC PANEL (14) calcium 9.6 mg/dL 8.7-10 .2 Not Available [facility] ([facility]) [address] [place], [address], 07/10/2021 07:10:42 07/05/19 22 07/06/2021 COMP. METAB OLIC PANEL (14) protein, total 7.0 g/dL 6.0-8. 5 Not Available [facility] ([facility]) [address] [place], [address], 07/10/2021 07:10:42 07/05/19 22 07/06/2021 COMP. METAB OLIC PANEL (14) albumin 4.3 g/dL 3.8-4. 9 Not Available [facility] ([facility]) [address] [place], [address], 07/10/2021 07:10:42 07/05/19 22 07/06/2021 COMP. METAB OLIC PANEL (14) globulin, total 2.7 g/dL 1.5-4. 5 Not Available [facility] ([facility]) [address] [place], [address], 07/10/2021 07:10:42 07/05/19 22 07/06/2021 COMP. METAB OLIC PANEL (14) A/G ratio 1.6 1.2-2. 2 Not Available [facility] ([facility]) [address] [place], [address], 07/10/2021 07:10:42 07/05/19 22 07/06/2021 COMP. METAB OLIC PANEL (14) bilirubin, total 0.4 mg/dL 0.0-1. 2 Not Available [facility] ([facility]) [address] [facility] [place], [address], 07/10/2021 07:10:42 07/05/19 22 07/06/2021 COMP. METAB OLIC PANEL (14) alkaline phosphatase 82 IU/L 44-121 Ple ase note refer ence inter claudette morley e Not Available [facility] ([facility]) [address] [facility] [place], [address], 07/10/2021 07:10:42 07/05/19 22 07/06/2021 CBC WITH DIFFE RENTI AL/PL ATELE T WBC 5.1 x10e3 /uL 3.4-10 .8 Not Available [facility] ([facility]) [address] [facility], [place], [address], 07/10/2021 07:10:41 07/05/19 22 07/06/2021 CBC WITH DIFFE RENTI AL/PL ATELE T RBC 5.01 x10e6 /uL 3.77-5 .28 Not Available [facility] ([facility]) [address] [place], [address], 07/10/2021 07:10:41 07/05/19 22 07/06/2021 CBC WITH DIFFE RENTI AL/PL ATELE T hemoglobin 15.1 g/dL 11.1-1 5.9 Not Available [facility] ([facility]) [address] [place], [address], 07/10/2021 07:10:41 07/05/19 22 07/06/2021 CBC WITH DIFFE RENTI AL/PL ATELE T hematocrit 44.5 % 34.0-4 6.6 Not Available [facility] ([facility]) [address] [place], [address], 07/10/2021 07:10:41 07/05/19 22 07/06/2021 CBC WITH DIFFE RENTI AL/PL ATELE T MCV 89 fL 79-97 Not Available [facility] ([facility]) [address] [facility], [place], [address], 07/10/2021 07:10:41 07/05/19 22 07/06/2021 CBC WITH DIFFE RENTI AL/PL ATELE T MCH 30.1 pg 26.6-3 3.0 Not Available [facility] ([facility]) [address] [facility], [place], [address], 07/10/2021 07:10:41 07/05/19 22 07/06/2021 CBC WITH DIFFE RENTI AL/PL ATELE T MCHC 33.9 g/dL 31.5-3 5.7 Not Available [facility] ([facility]) [address] [facility], [place], [address], 07/10/2021 07:10:41 07/05/19 22 07/06/2021 CBC WITH DIFFE RENTI AL/PL ATELE T RDW 12.2 % 11.7-1 5.4 Not Available [facility] ([facility]) [address] [facility], [place], [address], 07/10/2021 07:10:41 07/05/19 22 07/06/2021 CBC WITH DIFFE RENTI AL/PL ATELE T platelets 224 x10e3 /uL 150-45 0 Not Available [facility] ([facility]) [address] [place], [address], 07/10/2021 07:10:41 07/05/19 22 07/06/2021 CBC WITH DIFFE RENTI AL/PL ATELE T neutrophils 57 % not estab. Not Available [facility] ([facility]) [address] [place], [address], 07/10/2021 07:10:41 07/05/19 22 07/06/2021 CBC WITH DIFFE RENTI AL/PL ATELE T lymphs 30 % not estab. Not Available [facility] ([facility]) [address] [facility], [place], [address], 07/10/2021 07:10:41 07/05/19 22 07/06/2021 CBC WITH DIFFE RENTI AL/PL ATELE T monocytes 9 % not estab. Not Available [facility] ([facility]) [address] [facility], [place], [address], 07/10/2021 07:10:41 07/05/19 22 07/06/2021 CBC WITH DIFFE RENTI AL/PL ATELE T eos 3 % not estab. Not Available [facility] ([facility]) [address] [facility], [place], [address], 07/10/2021 07:10:41 07/05/19 22 07/06/2021 CBC WITH DIFFE RENTI AL/PL ATELE T basos 1 % not estab. Not Available [facility] ([facility]) [address] [facility], [place], [address], 07/10/2021 07:10:41 07/05/19 22 07/06/2021 CBC WITH DIFFE RENTI AL/PL ATELE T immature cells fnps Not Available [facility] ([facility]) [address] [facility], [place], [address], 07/10/2021 07:10:41 07/05/19 22 07/06/2021 CBC WITH DIFFE RENTI AL/PL ATELE T neutrophils (absolute) 2.9 x10e3 /uL 1.4-7. 0 Not Available [facility] ([facility]) [address] [place], [address], 07/10/2021 07:10:41 07/05/19 22 07/06/2021 CBC WITH DIFFE RENTI AL/PL ATELE T lymphs (absolute) 1.6 x10e3 /uL 0.7-3. 1 Not Available [facility] ([facility]) [address] [facility], [place], [address], 07/10/2021 07:10:41 07/05/19 22 07/06/2021 CBC WITH DIFFE RENTI AL/PL ATELE T monocytes(ab solute) 0.5 x10e3 /uL 0.1-0. 9 Not Available [facility] ([facility]) [address] [facility], [place], [address], 07/10/2021 07:10:41 07/05/19 22 07/06/2021 CBC WITH DIFFE RENTI AL/PL ATELE T eos (absolute) 0.2 x10e3 /uL 0.0-0. 4 Not Available [facility] ([facility]) [address] [facility], [place], [address], 07/10/2021 07:10:41 07/05/19 22 07/06/2021 CBC WITH DIFFE RENTI AL/PL ATELE T baso (absolute) 0.0 x10e3 /uL 0.0-0. 2 Not Available [facility] ([facility]) [address] [facility], [place], [address], 07/10/2021 07:10:41 07/05/19 22 07/06/2021 CBC WITH DIFFE RENTI AL/PL ATELE T immature granulocytes 0 % not estab. Not Available [facility] ([facility]) [address] [facility], [place], [address], 07/10/2021 07:10:41 07/05/19 22 07/06/2021 CBC WITH DIFFE RENTI AL/PL ATELE T immature grans (abs) 0.0 x10e3 /uL 0.0-0. 1 Not Available [facility] ([facility]) [address] [facility], [place], [address], 07/10/2021 07:10:41 07/05/19 22 07/06/2021 CBC WITH DIFFE RENTI AL/PL ATELE T NRBC fnps Not Available [facility] ([facility]) [address] [facility], [place], [address], 07/10/2021 07:10:41 07/05/19 22 07/06/2021 CBC WITH DIFFE RENTI AL/PL ATELE T hematology comments: fnps Not Available [facility] ([facility]) [address] [facility], [place], [address], 07/10/2021 07:10:41 07/05/19 22 07/06/2021 TSH+F REE T4 TSH 1.650 uIU/m L 0.450- 4.500 Not Available [facility] ([facility]) [address] [facility], [place], [address], 07/10/2021 07:10:41 07/05/19 22 07/06/2021 TSH+F REE T4 T4,free(dire ct) 1.17 NG/dL 0.82-1 .77 Not Available [facility] ([facility]) [address] [facility], [place], [address], 07/10/2021 07:10:41 02/16/20 21 02/15/2021 MAMMO , diagn ostic , digit al, unila teral No observ ation record ed. [id number] [facility] [address], [place], [address], 08/31/2022 08:48:43 02/17/20 21 02/04/2021 DEXA No observ ation record ed. [id number] [facility] [address], [place], [address], 08/31/2022 08:48:43 08/17/19 22 08/17/2021 MAMMO , diagn ostic , digit al, unila teral No observ ation record ed. [id number] [facility] [address], [place], [address], 08/31/2022 08:48:43 Result Notes None recorded. Problems Name Problem SNOMED Code Status Onset Date Resolution Date Notes Provider Name and Address Organization Details Recorded Time Acute bronchitis 60133904 Active Not Available [facility] 3 08:45:37 Dysfunctio n of bilateral eustachian tubes 1534958977811 100 Active 2021 Not Available [facility] 3 08:45:37 Disorder of shoulder 508821488 Active Not Available [facility] 3 08:45:37 Acute sinusitis 82453814 Active Not Available [facility] 3 08:45:37 Body mass index 30+ - obesity 641509202 Active Not Available [facility] 3 08:45:37 Blood glucose outside reference range 691247985 Active 2021 Not Available [facility] 3 08:45:37 Mammograph y abnormal 627034766 Active 2022 Not Available [facility] 3 08:45:37 Partial thickness rotator cuff tear 261063522 Active 2019 Not Available [facility] 3 08:45:37 Full thickness rotator cuff tear 924113827 Active 2018 Not Available [facility] 3 08:45:37 Synovitis and tenosynovi tis 907153433 Active Not Available [facility] 3 08:45:37 Abdominal pain 30528792 Active Not Available [facility] 3 08:45:37 Pain in pelvis 24140104 Active Not Available [facility] 3 08:45:37 Recurrent dislocatio n of shoulder region 15352217 Active Not Available [facility] 3 08:45:37 Influenza- like symptoms 117006368 Active Not Available [facility] 3 08:45:38 Bronchitis 05710848 Active Not Available [facility] 3 08:45:38 Multiple joint pain 12282490 Active 2021 Not Available [facility] 3 08:45:38 Serum ferritin above reference range 181684858 Active 2021 Not Available [facility] 3 08:45:38 Contact dermatitis 52774122 Active Not Available [facility] 3 08:45:38 Allergic conjunctiv itis 084236845 Active 2021 Not Available [facility] 3 08:45:38 Hip pain 66230375 Active Not Available [facility] 3 08:45:38 Cough 79233108 Active Not Available [facility] 3 08:45:38 Hyperlipid emia 05467829 Active 2021 Not Available [facility] 3 08:45:38 Disorder of bursa of shoulder region 14521240 Active Not Available [facility] 3 08:45:38 Allergic rhinitis 72111990 Active Not Available [facility] 3 08:45:38 Nasal congestion 09142248 Active Not Available [facility] 3 08:45:39 Candidiasi s of vagina 31266764 Active Not Available [facility] 3 08:45:39 Posterior rhinorrhea 42441150 Active Not Available [facility] 3 08:45:39 Overactive urinary bladder 342108962 Active 2021 Not Available [facility] 3 08:45:39 Spinal stenosis in cervical region 82377098 Active 2019 Not Available [facility] 3 08:45:39 Fatigue 12966807 Active Not Available [facility] 3 08:45:39 Maxillary sinusitis 51252554 Active Not Available [facility] 3 08:45:39 Weight gain 7715538 Active 2021 Not Available [facility] 3 08:45:39 Impaired glucose tolerance 1502634 Active 2021 Not Available [facility] 3 08:45:39 Problem Notes None recorded. Procedures Surgical History Date Name Laterality Status Provider Name and Address Organization Details Recorded Time 08/05/20 21 Most Recent Bone Density completed Not Available [facility] 08/31/2022 08:43:16 Hernia Repair completed Not Available [facility] 08/31/2022 08:43:17 complete repair of rotator cuff completed Not Available [facility] 08/31/2022 08:43:17 Colonoscopy completed Not Available [facility] 08/31/2022 08:43:17 HARBOR TUG CAPTAIN Surgery completed Not Available [facility] 08/31/2022 08:43:17 ligation of fallopian tube completed Not Available [facility] 08/31/2022 08:43:17 Imaging Results Imaging Date Name Status LastModified by Organiz ation Details LastModified Time 02/04/2021 DEXA completed [id number] [facility] [address], [place], [address], 08/31/2022 08:48:43 02/15/2021 MAMMO, diagnostic, digital, unilateral completed [id number] [facility] [address], [place], [address], 08/31/2022 08:48:43 08/17/2021 MAMMO, diagnostic, digital, unilateral completed [id number] [facility] [address], [place], [address], 08/31/2022 08:48:43 Procedure Notes None recorded. Medical Equipment None Reported. Allergies Allergen ID Allergen Name Allergen Category Reaction Reaction Severity Criticality Documentation Date Start Date Code Code System Note Provider Name and Address Organization Details Recorded Time Product containin g penicilli n and antibioti c (product) medicatio n rash Not available Not available 08/31/2022 45019 05 SNOMED Not Available [facility] 3 08:48:37 08785 Macrobid medicatio n rash moderate Not available 08/31/2022 27266 1 RxNorm Not Available [facility] 3 08:48:37 22966 Biaxin medicatio n itching severe Not available 08/31/202210836 9 RxNorm Not Available [facility] 3 08:48:37 Medications Name Sig Start Date Stop Date Status Note LastModified by Organization Details LastModified Time azelastin e 0.05 % eye drops INSTILL 1 DROP INTO AFFECTED EYE(S) TWICE DAILY active Not Available Not Available No t Available prednison e 10 mg tablet TAKE 1 TABLET BY MOUTH 3 TIMES DAILY FOR 3 DAYS THEN 1 TABLET TWICE DAILY FOR 2 DAYS THEN 1 TABLET ONCE DAILY FOR 1 DAY 03/16 completed Not Available Not Available Not Available doxycycli ne hyclate 100 mg capsule Take 1 capsule twice a day by oral route. 03/28 completed Not Available Not Available Not Available famotidin e 10 mg tablet Take 1 tablet every day by oral route. 2021 active Not Available Not Available Not Avai lable azithromy joel 250 mg tablet TAKE 2 TABLETS (500 MG) BY ORAL ROUTE ONCE DAILY FOR 1 DAY THEN 1 TABLET (250 MG) BY ORAL ROUTE ONCE DAILY FOR 4 DAYS 08/27 completed Not Available Not Available Not Available fluconazo le 150 mg tablet TAKE 1 TABLET BY MOUTH ONCE DAILY NEEDED FOR 1 DAY 03/16 completed Not Available Not Available Not Available Nystop 100,000 unit/gram topical powder APPLY under the breast and thigh areas bid PRN active Not Available Not Available No t Available phenazopy ridine 200 mg tablet Take 1 tablet 3 times a day by oral route for 3 days. 04/12 completed Not Available Not Available Not Available prednison e 20 mg tablet TK 2 TS PO QD FOR 5 DAYS 04/12 completed Not Available Not Available Not Available Rocephin 1 gram solution for injection 09/08 completed [facility]#[phone] Not Available Not Available Not Available Biaxin 500 mg tablet Take 1 tablet every 12 hours by oral route. 09/11 completed Not Available Not Available Not Available ciproflox acin 500 mg tablet Take 1 tablet every 12 hours by oral route. 04/12 completed Not Available Not Available Not Available tramadol 50 mg tablet Take 1-2 tablet(s ) EVERY 6 HOURS by oral route.AK N 04/12 completed Not Available Not Available Not Available triamcino lone acetonide 0.1 % topical cream APPLY A THIN LAYER TO THE AFFECTED AREA(S) BY TOPICAL ROUTE 2 TIMES PER DAY active Not Available Not Available No t Available Kenalog 40 mg/mL suspensio n for injection 09/08 completed [facility]#[id number] Not Available Not Available Not Available prednison e 10 mg tablets in a dose pack Take 1 tab by mouth, 3 times a day for 3 daysTake 1 tab by mouth 2 times a day for 2 daysTake 1 tab by mouth once a day for 1 day 09/10 completed Not Available Not Available Not Available Tessalon Perles 100 mg capsule Take 2 capsules 3 times a day by oral route for 10 days. 06/16 completed Not Available Not Available Not Available Kenalog 10 mg/mL suspensio n for injection In office injectio n administ ered by the provider 09/10 completed [facility]: [phone] Not Available Not Available Not Available hydrocodo ne 7.5 mg-acetam inophen 325 mg tablet 08/27 completed Not Available Not Available Not Available promethaz ine 25 mg tablet 07/10 completed Not Available Not Available Not Available Xenical 120 mg capsule Take 1 capsule 3 times a day by oral route as directed . 09/08 completed Not Available Not Available Not Available oxybutyni n chloride ER 5 mg tablet,ex tended release 24 hr Take 1 tablet every day by oral route. 04/12 completed Not Available Not Available Not Available monteluka st 10 mg tablet TAKE 1 TABLET BY MOUTH ONCE DAILY active Not Available Not Available No t Available Pepcid 20 mg tablet Take 1 tablet twice a day by oral route. 03/16 completed Not Available Not Available Not Available cefuroxim e axetil 500 mg tablet Take 1 tablet every 12 hours by oral route. active Not Available Not Available No t Available methylpre dnisolone 4 mg tablets in a dose pack take as directed 08/27 completed Not Available Not Available Not Available hydrocodo ne 10 mg-chlorp heniramin e 8 mg/5 mL oral susp extend.re l 12hr Take 5 mL every 12 hours by oral route as needed. 04/12 completed Not Available Not Available Not Available fluticaso ne propionat e 50 mcg/actua tion nasal spray,[place] [employer] USE 1 SPRAY(S) IN EACH NOSTRIL TWICE DAILY active Not Available Not Available No t Available amoxicill in 875 mg-potass ium clavulana te 125 mg tablet Take 1 tablet every 12 hours by oral route. 04/12 completed Not Available Not Available Not Available rosuvasta tin 5 mg tablet TAKE 1 TABLET BY MOUTH ONCE DAILY active Not Available Not Available No t Available nitrofura ntoin monohydra te/macroc rystals 100 mg capsule Take 1 capsule every 12 hours by oral route. 04/12 completed Not Available Not Available Not Available solifenac in 5 mg tablet TAKE 1 TABLET BY MOUTH ONCE DAILY 03/23 completed Not Available Not Available Not Available solifenac in 10 mg tablet TAKE 1 TABLET BY MOUTH ONCE DAILY active Not Available Not Available No t Available Claritin PRN 2015 active Not Available Not Available Not Avai lable Vesicare 06/15 completed Not Available Not Available Not Available Calcium 600 with Vitamin D3 takes daily 2015 active pt hasnt been taking it. Not Available Not Available Not Available lidocaine (PF) 10 mg/mL (1 %) injection solution In office injectio n administ ered by the provider 09/10 completed [facility]: [id number] [id number] Not Available Not Available Not Available ProAir HFA 90 mcg/actua tion aerosol inhaler INHALE 2 PUFFS BY MOUTH EVERY 4 HOURS DIRECTED FOR WHEEZING active Not Available Not Available No t Available Suprep Bowel Prep Kit 17.5 gram-3.13 gram-1.6 gram oral solution 04/12 completed Not Available Not Available Not Available Ozempic 0.25 mg or 0.5 mg (2 mg/1.5 mL) subcutane ous pen injector Inject 0.5 mg every week by subcutan eous route as directed . 09/19 completed pt stopped taking, made her sick Not Available Not Available Not Available Vitals Date Recorded Body mass index (BMI) Body mass index (BMI) Body mass index (BMI) Provider Name and Address Organization Details Last Updated DateTime 08/31/2022 35.1 kg/m2 35.9 kg/m2 36.8 kg/m2 Not Available [facility] 08/31/2022 08:44:11 Date Recorded Body height Body height Systolic blood pressure Diastolic blood pressure Provider Name and Address Organization Details Last Updated DateTime 08/31/2022 175.26 cm 175.26 cm 120 mm[Hg] 80 mm[Hg] Not Available [facility] 08/31/2022 08:44:13 Date Recorded Body height Oxygen saturation Oxygen saturation in Arterial blood by Pulse oximetry Oxygen saturation Oxygen saturation in Arterial blood by Pulse oximetry Oxygen saturation Oxygen saturation in Arterial blood by Pulse oximetry Provider Name and Address Organization Details Last Updated DateTime 175.26 cm 96 % 96 % 97 % 97 % 97 % 97 % Not Available [facility] 3 08:44:14 Date Recorded Heart rate Heart rate Heart rate Provider Na me and Address Organization Details Last Updated DateTime 08/31/2022 73 /min 86 /min 81 /min Not Available [facility] 08:44:15 Date Recorded Respiratory rate Respiratory rate Body temperature Body temperature Body temperature Provider Name and Address Organization Details Last Updated DateTime 16 /min 16 /min 98.3 [degF] 97.8 [degF] 97.3 [degF] Not Available [facility] 08:44:16 Date Recorded Body weight Body weight Body weight Provider Name and Address Organization Details Last Updated DateTime 08/31/2022 858758.98 g 244534.95 g 026212.5 g Not Available [facility] 08/31/2022 08:44:17 Date Recorded Body height Provider Name an d Address Organization Details Last Updated DateTime 09/19/2022 175.26 cm [facility]NA [facility]ang [facility] [place] [employer] [facility] 09/19/2022 09:50:35 Date Recorded Body temperature Provider Name a nd Address Organization Details Last Updated DateTime 09/19/2022 97.9 [degF] JOANNA Jang Paulino ND [employer] [facility] 09/19/2022 09:52:50 Date Recorded Body mass index (BMI) Body weight Provider Name and Address Organization Details Last Updated DateTime 09/19/2022 36.3 kg/m2 396218.72 g JOANNA Jang Paulino [place] [employer] [facility] 09/19/2022 09:56:12 Date Recorded Heart rate Provider Name an d Address Organization Details Last Updated DateTime 09/19/2022 72 /min JOANNA Jang [facility] [employer] [facility] 09/19/2022 09:59:48 Date Recorded Oxygen saturation Oxygen saturation in Arterial blood by Pulse oximetry Provider Name and Address Organization Details Last Updated DateTime 09/19/2022 97 % 97 % Ariane Samson RN [facility] [employer] [facility] 09/19/2022 09:59:53 Date Recorded Body height Provider Name an d Address Organization Details Last Updated DateTime 03/28/2023 175.26 cm Ariane Samson RN [facility] [employer] [facility] 03/28/2023 11:07:40 Date Recorded Body weight Provider Name an d Address Organization Details Last Updated DateTime 03/28/2023 431836.43 g Ariane Samson RN [facility] [employer] [facility] 03/28/2023 11:15:31 Date Recorded Body temperature Provider Name a nd Address Organization Details Last Updated DateTime 03/28/2023 97.3 [degF] Ariane Samson RN [facility] [employer] [facility] 03/28/2023 11:16:35 Date Recorded Heart rate Provider Name an d Address Organization Details Last Updated DateTime 03/28/2023 70 /min Ariane Samson RN [facility] [employer] [facility] 03/28/2023 11:16:38 Date Recorded Oxygen saturation Oxygen saturation in Arterial blood by Pulse oximetry Provider Name and Address Organization Details Last Updated DateTime 03/28/2023 98 % 98 % Ariane Samson RN [facility] [employer] [facility] 03/28/2023 11:16:40 Date Recorded Body mass index (BMI) Provider Name and Address Organization Details Last Updated DateTime 03/28/2023 34.3 kg/m2 HTIAGO Gregorio [address] [facility], [facility] [address], [place], [address], [facility] [employer] [facility] 03/28/2023 22:16:50 Date Recorded Systolic blood pressure Diastolic blood pressure Systolic blood pressure Diastolic blood pressure Provider Name and Address Organization Details Last Updated DateTime 08/31/2022 120 mm[Hg] 80 mm[Hg] 120 mm[Hg] 80 mm[Hg] Not Available [facility] 08:44:12 Date Recorded Systolic blood pressure Diastolic blood pressure Provider Name and Address Organization Details Last Updated DateTime 09/19/2022 124 mm[Hg] 80 mm[Hg] Ariane Samson RN [facility] [employer] 09/19/2022 09:59:45 Date Recorded Systolic blood pressure Diastolic blood pressure Provider Name and Address Organization Details Last Updated DateTime 03/28/2023 138 mm[Hg] 88 mm[Hg] Ariane Samson RN [facility] [employer] [facility] 03/28/2023 11:16:33 Social History Question Answer Notes LastModified by Organizat ion Details LastModified Time Tobacco Smoking Status Never Smoker Ariane Samson RN null, [facility] [employer] [facility] 09/19/2022 09:50:12 What Is Your Level Of Alcohol Consumption? Occasional [id number] Information not available 08/31/2022 What Is Your Level Of Caffeine Consumption? Heavy [id number] Information not available 08/31/2022 In The 14 Days Before Symptom Onset, Have You Had Close Contact With A Laboratory-confir med COVID-19 While That Case Was Ill? No [email or web address] Information not available 09/19/2022 In The 14 Days Before Symptom Onset, Have You Had Close Contact With A Person Who Is Under Investigation For COVID-19 While That Person Was Ill? No [email or web address] Information not available 09/19/2022 Are You Currently Employed? Yes [email or web address] Information not available 09/19/2022 What Type Of Diet Are You Following? REGULAR [id number] Information not available 08/31/2022 What Is The Highest Grade Or Level Of School You Have Completed Or The Highest Degree You Have Received? [id number] [email or web address] Information not available 09/19/2022 What Is Your Occupation? [employer] [email or web address] Information not available 09/19/2022 Have There Been Any Changes To Your Family Or Social Situation? No [email or web address] Information no t available 09/19/2022 Have You Ever Been Counseled For Unhealthy Alcohol Use? No [email or web address] Information not available 09/19/2022 What Is Your Relationship Status? [id number] Information not available 08/31/2022 Do You Feel Stressed (tense, Restless, Nervous, Or Anxious, Or Unable To Sleep At Night)? [id number] [email or web address] Information not available 09/19/2022 Do You Use Any Illicit Or Recreational Drugs? No [email or web address] Information not available 09/19/2022 Has Tobacco Cessation Counseling Been Provided? No [email or web address] Information not available 09/19/2022 Have You Recently Traveled Abroad? No Information not available 09/19/2022 Do You Have Any Dietary Restrictions? No [email or web address] Information not available 09/19/2022 Do You Or Have You Ever Used Any Other Forms Of Tobacco Or Nicotine? No [email or web address] Information not available 09/19/2022 Sex: Unknown Functional Status Question Answer Note LastModified by Organizat ion Details LastModified Time What is your exercise level? None [id number] Information not available 08/31/2022 Mental Status None recorded. Family History Relationship Description Onset Age of this Age Resolved Age Notes LastModified by Organization Details LastModified Time Father Parkinson's disease [id number] Not available 09:50:12 Father Malignant tumor of lip [email or web address] Not available 09/19/2022 09:50:12 Daughter Disorder of thyroid gland [id number] Not available 08/31/2022 08:43:19 Notes:HISTORY OF MIGRAINES I N FAMILY/ALSO FIBROYD TUMORS AND CYSTS Medical History Condition Response OBESITY Y URINARY/BLADDER/KIDNEY PROBLEMS Y Gynecological History Statement/Question Response Abnormal Pap N Date of Last Mammogram 02/04/2021 Most Recent Bone Density 02/04/2021 Sexually Active? Y Menses Monthly N Date of Last Pap 03/13/2020 Current Control Method Tubal Ligat ion Obstetrics History GPAL:G 4 P 0 0 0 3 Type Value Living 3 Total 4 Immunizations Vaccine Type Date Status Note Provider Nam e and Address Organization Details Recorded Time COVID-19 vaccine, vector-nr, rS-ChAdOx1, PF, 0.5 mL 09/22/2020 completed Not Available [facility] 3 08:48:32 COVID-19 vaccine, vector-nr, rS-ChAdOx1, PF, 0.5 mL 09/03/2020 completed Not Available [facility] 3 08:48:32 Past Encounters Encounter ID Performer Location Encounter Start Date Encounter Closed Date Diagnosis/Indication Diagnosis SNOMED-CT Code Diagnosis ICD10 Code Diagnosis Note [id number] [facility] [place] [address] [place] [address] 03/16/2021 00:00:00 03/31/2021 23:24:45 [id number] [facility] [place] [address] [place] [address] 09/14/2021 00:00:00 09/29/2021 23:54:29 [id number] [facility] [place] [address] [place] [address] 03/23/2022 00:00:00 03/30/2022 00:33:49 [id number] THIAGO Gregorio [facility] [place] [address] [facility] [place] [address] 09/19/2022 09:48:25 09/19/2022 10:24:28 Impaired glucose tolerance 9881826 R73.03 5.7% on last A1c, due for new labs and insulin in march Hyperlipidemia 21134863 E78.5 stable on crestor 5mg daily. due for fasting lipids in mar. Serum ferr itin above reference range 874227010 R77.8 due for iron studies and CBC Multiple joint pain 3567 8005 M25.50 hx noted Allergic conjunctivitis 854565434 H10.10 on OTC antihistam ine and singulair 10mg daily Overactive urinary bladder 096618898 N32.81 stable on solifenaci n 10mg daily Long-term drug therapy 200307380 Z79.899 next labs due in mar Screening mammography 24 124669 Z12.31 mammogram ordered Acute sinusitis 18038488 J01.90 start doxy 100mg bid course. [id number] THIAGO Gregorio [facility] [place] [address] [place] [id number] 03/28/2023 11:03:44 03/28/2023 11:53:42 Adult health examination 061410508 Z00.01 well exam completed Impaired g lucose tolerance 4683386 R73.03 5.7% on last A1c, due for new labs and insulin, still to get them completed Hyperlipidemia 20141966 E78.5 stable on crestor 5mg daily. due for fasting lipids Serum ferr itin above reference range 997779861 R77.8 due for iron studies and CBC Multiple joint pain 3567 8005 M25.50 hx noted, stable. Allergic conjunctivitis 010437160 H10.10 on OTC antihistam ine and singulair 10mg daily Overactive urinary bladder 778389289 N32.81 stable on solifenaci n 10mg daily. check UA Long-term drug therapy 120929312 Z79.899 CMP and TFTs due Screening mammography 24 711523 Z12.31 mammogram ordered Postmenopausal state 764 [address]005 Z78.0 due for dexa scan but she only want to do it every 3-4 years Health Concerns Section Related Observation LastModified by Organization Detai ls LastModified Time None Recorded Concern Status LastModified by Organization Details LastModified Time None Recorded Advance Directives Directive N: declined Payers Encounter Date Sequence Insurance Name Policy Number Policy Cool Covered Member ID Cool Member ID Guarantor Name 09/19/2022 1 [email or web address]) 113 Lobito Fernandez [id number] Anel Fernandez 03/28/2023 1 [email or web address] 113 Lobito Fernandez [id number] Anel Fernandez Notes Date Note Type Note Provider Name and Address Organization Details Recorded Time 1 text/html HyperlipidemiaReported bypatient.Control:usually well controlled; improving; at goal Compliance:compliant; compliant with diet; exercises Complications:no coronary artery disease; no peripheral artery disease; no cardiovascular disease Not Available [employer] 03/31/2021 23:24:45 2 text/html HyperlipidemiaReported bypatient.Duration:chronic Control:usually well controlled Current Therapy:currently taking: (rosuvastatin 5mg); last cholesterol level: 178 date:; last LDL level: 105 date:; last triglyceride level: 149 date:; last HDL level: 47 date: Compliance:compliant;nonco mpliant with diet;does not exercise Complications:no coronary artery disease; no peripheral artery disease; no cardiovascular disease Not Available [employer] 09/29/2021 23:54:29 2 text/html HyperlipidemiaReported bypatient.Duration:chronic Control:usually well controlled Current Therapy:currently taking: (rosuvastatin 5mg) Compliance:compliant; compliant with diet;does not exercise Complications:no coronary artery disease; no peripheral artery disease; no cardiovascular disease Not Available [employer] 03/30/2022 00:33:49 3 text/html HyperlipidemiaReported bypatient.Control:usually well controlled; improving; at goal Compliance:compliant;nonco mpliant with diet;does not exercise Complications:no coronary artery disease; no peripheral artery disease; no cardiovascular disease pt here for 6 mo f/u THIAGO Gregorio [address], [place], [address], [employer] 09/30/2022 11:50:24 3 text/html HyperlipidemiaReported bypatient.Control:usually well controlled; improving; at goal Compliance:compliant;nonco mpliant with diet;does not exercise Complications:no coronary artery disease; no peripheral artery disease; no cardiovascular disease wellness THIAGO Gregorio [address], [place], [address], [employer] 03/28/2023 22:18:45 OBGyn Episode No OBEpisode recorded.
--- OUTSIDE RECORDS SUMMARY | 2024-08-02 02:05 | XMS_ITS | Referral Summary ---
Author Organization [facility] Address [address] [place] [id number] Care Team Providers Care Software Engineer Intern Name Role Phone Waleska Deleon Primary Care Pr ovider Allergies Active Allergy Reactions Criticality Noted Date Comments Clarithromycin Itching High 12/15/2021 Nitrofurantoin Monohyd/M-Cryst Rash Medium 12/15 Penicillins Rash Medium 12/15/2021 Medications solifenacin (VESIcare) 10 mg tablet Take 10 mg by mouth daily 2 Active rosuvastatin (CRESTOR) 5 mg tablet Take 5 mg by mouth daily 2 Active montelukast (SINGULAIR) 10 mg tablet Take 10 mg by mouth daily 2 Active azelastine (OPTIVAR) 0.05 % ophthalmic solution INSTILL 1 DROP INTO AFFECTED EYE(S) TWICE DAILY 2 Active cetirizine (ZyrTEC) 10 mg tablet Take 10 mg by mouth daily Active fluticasone propionate (FLONASE) 50 mcg/actuation nasal spray Administer 1 spray into each nostril daily Active Active Problems Problem Noted Date Diagnosed Date Elevated ferritin 11/05/2021 Social History Tobacco Use Types Packs/Day Years Used Date Smoking Tobacco: Former Cigarettes 1 10 1 8 - 1987 Smokeless Tobacco: Never AUDIT-C Answer Date Recorded Q1: How often do you have a drink containing alc ohol? 2-3 times a week 11/01/2021 Q2: How many drinks containi ng alcohol do you have on a typical day when you are drinking? 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 Not on file Not on file Last Filed Vital Signs Vital Sign Reading Time Taken Comments Blood Pressure 142/92 12/15/2021 2:15 PM CDT Pulse 88 12/15/2021 2:15 PM CDT Temperature 36.8 ??C (98.2 ??F) 12/15/2021 2 :15 PM CDT Respiratory Rate 18 12/15/2021 2:15 PM CDT Oxygen Saturation 97% 12/15/2021 2:1 5 PM CDT Inhaled Oxygen Concentration - - Weight 112.6 kg (248 lb 3.2 oz) 12/15/2021 2:15 PM CDT without shoes Height 172.7 cm (5' 8 ) 12/15/2021 2:15 PM CDT Body Mass Index 37.74 12/15/2021 2:15 PM CDT Plan of Treatment Not on file Insurance [facility] Care Teams Software Engineer Intern Relationship Specialty Start Date End Date Waleska Deleon PA PCP - General Physician Home Therapy Teacher 10/04/21
--- OUTSIDE RECORDS SUMMARY | 2024-08-02 02:05 | XMS_ITS | Clinical Summary ---
Author Organization [facility] Address [address] [place] [id number] Care Team Providers Care Infantry Unit Leader Name Role Phone Waleska Deleon Primary Care [...] Noted Date Diagnosed Date Elevated ferritin 11/05/2021 Surgical History Surgery Date Site/Laterality Comments COLONOSCOPY ROTATOR CUFF REPAIR OOPHORECTOMY Medical History Medical History Date Comments Anemia Hypercholesteremia Chronic kidney disease Family History Medical History Relation Name Comments Skin cancer Father Leukemia Maternal Grandfather No Known Problems Maternal Grandmother Heart disease Mother No Known Problems Paternal Grandfather No Known Problems Paternal Grandmother No Known Problems Sister Relation Name Status Comments Father Maternal Grandfather Maternal Grandmother Mother Paternal Grandfather Paternal Grandmother Sister Alive Social History Tobacco Use Types Packs/Day Years Used Date Smoking Tobacco: Former Cigarettes 1 10 1 978 - 1988 Smokeless Tobacco: Never AUDIT-C Answer Date Recorded Q1: How often do you have a drink containing alc ohol? 2-3 times a week 11/01/2021 Q2: How many drinks containi ng alcohol do you have on a typical day when you are drinking? 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 Not on file Not on file Obstetrics History Last Filed Vital Signs Vital Sign Reading [...] 12/15/2021 2:15 PM CDT Plan of Treatment Health Maintenance Due Date Last Done Comments Breast Cancer Screening-Mammogram 1962 Cervical Cancer Screening 1962 Colon Cancer Screening-Colonoscopy 1962 Depression Screening 1962 Hepatitis C Screening 1962 DTaP/Tdap/Td Vaccine (1 - Tdap) 1973 Hepatitis B Screening 1980 Regular Well Visit/Exam 18-64 1980 Zoster Vaccine (1 of 2) 2012 Influenza Vaccine (#1) 2024 Pneumococcal vaccine <65 Aged Out No longer eligible based on patient's age to complete this topic Insurance [facility] Care Teams Infantry Unit Leader Relationship Specialty Start Date End Date Waleska Deleon PA PCP - General Physician Speedometer Mechanic 10/04/21
--- OUTSIDE RECORDS SUMMARY | 2024-08-02 02:05 | XMS_ITS | Data Portability ---
Author Organization [facility] [place] Address [address] [place] [address] Care Team Providers Care Engineering Librarian Name Role Phone WALESKA GAYLE Primary Care Provider Unavailab le Assessment Encounter Date Assessment Date Assessment LastModified by Organization Details LastModified Time 02/02/2024 02/02/2024 she did a urinalysis yesterday results not back given her urgency and frequency empiric Macrobid 100 b.i.d. for 5 days. I have asked her to call back Monday with an update in her condition. She can eat a little bit of Tylenol or Advil for her back if this does not get better and the urinalysis is negative we may need to turn our attention done x-ray of her lumbar spine and more musculoskeletal etiology [email or web address] Not available 02/02/2024 13:47:42 06/24/2024 06/24/2024 jul 09 diagnost ic colonoscopy planned [email or web address] Not available 06/24/2024 12:02:40 Plan of Treatment Reminders Order Date Submit Date Provider Last Modified By Organization Details Last Modified Time Details Appointments ANY 15 2024 09:00A M THIAGO Gregorio Not available Not available Not available Lab TSH + free T4, serum 2023 024 [facility], [address], [address], [place], [address], 11/03/2023 15:24:47 CBC w/ auto diff 2023 024 gus [facility], [address], [address], [place], [address], 11/03/2023 15:24:47 CMP, serum or plasma 2023 024 CANDACE [facility], [address], [address], [place], [address], 10/29/2023 23:41:06 vitamin B12 + folate, serum or blood 2023 024 [facility], [address], [address], [place], [address], 11/03/2023 15:24:47 HbA1c (hemoglob in A1c), blood 2023 024 [facility], [address], [address], [place], [address], 11/03/2023 15:24:47 lipid panel, serum 2023 024 [facility], [address], [address], [place], [address], 11/03/2023 15:24:47 CBC w/ auto diff 2023 024 CANDACE [facility], [address] [facility], [facility] [address], [place], [address], 03/19/2024 03:37:05 CMP, serum or plasma 2023 024 CANDACE [facility], [address] [facility], [facility], [place], [address], 03/19/2024 03:37:03 HbA1c (hemoglob in A1c), blood 2023 024 [facility]AND[facility], [address] [facility], [facility], [place], [address], 03/19/2024 03:37:04 lipid panel, serum 2023 024 CANDACE [facility], [address] [facility], [address], [place], [address], 03/19/2024 03:37:02 HbA1c (hemoglob in A1c), blood 2023 025 [email or web address] [facility], [address] [place] [address] 2, [place], [address], 03/28/2024 14:24:08 CBC w/ auto diff 2023 025 [email or web address] [facility], [address] [place] [address], [place], [address], 03/28/2024 14:24:08 CMP, serum or plasma 2023 025 [email or web address] [facility], [address] [place] [address] 2, [place], [address], 03/28/2024 14:24:08 TSH + free T4, serum 2023 025 [email or web address] [facility], [address] [place] [address], [place], [address], 03/28/2024 14:24:08 lipid panel, serum 2023 025 [email or web address] [facility], [address] [place] [address] 2, [place], [address], 03/28/2024 14:24:08 noninvasi ve colorecta l cancer DNA + occult blood screening , QL, stool 2023 024 [employer] (Cologuard Orders Only), [address], [address], [place], [address], 04/09/2024 09:54:57 insulin, serum 2023 025 [email or web address] [facility], [address] [place] [address] 2, [place], [address], 03/28/2024 14:24:08 Referral bariatric surgery referral 2023 024 [email or web address] Hero Mckeon MD, 4 [facility] , [address], [place], [address], 09/12/2023 13:00:18 Procedures None recorded. Surgeries None recorded. Imaging MAMMO, screening , digital, bilateral 2023 024 [email or web address] [facility], [address], [address], [place], [address], 07/30/2024 16:48:15 Medication Orders Zithromax Z-Elie 250 mg tablet 2023 024 [facility] [address] [place], [address], 02/02/2024 12:07:52 amlodipin e 5 mg tablet 2023 024 [facility] [address] [place], [address], 01/12/2024 18:01:05 Zepbound 2.5 mg/0.5 mL subcutane ous pen injector 2023 024 [email or web address] [facility] [address], [address] [place] [place], [address], 01/09/2024 13:58:47 Macrobid 100 mg capsule 2023 024 [facility] [address] [place], [address], 03/19/2024 09:18:41 ondansetr on 4 mg disintegr ating tablet 2023 024 [email or web address] [facility] [address], [address] [place], [address], 06/24/2024 11:50:27 ondansetr on 4 mg disintegr ating tablet 2023 024 [facility] [address], [address] [place], [address], 06/24/2024 12:02:36 Wegovy 2.4 mg/0.75 mL subcutane ous pen injector 2023 1223 024 CANDACE [facility], [address] [place], [address], 06/24/2024 12:02:35 Patient TargetsNo targets recorded. Patient InstructionsNo instructions recorded. Reason for Referral Bariatric Surgery Referral f or Obesity Referring Physician: Waleska Gayle, Internal Medicine, Encounter Date: 09/12/2023 Results Created Date Observation Date Name Description Value Unit Range Abnormal Flag Note LastModifiedBy Organization Detail LastModifiedTime 02/01/2002/02/2024 UA WITH CULTU RE REFLE X specific gravity 1.027 1.005- 1.030 Not Available [facility] ([facility]) [address] [place], [address], 02/02/2024 12:37:08 02/01/20 24 02/02/2024 UA WITH CULTU RE REFLE X pH 5.5 5.0-7. 5 Not Available [facility] ([facility]) [address] [place], [address], 02/02/2024 12:37:08 02/01/20 24 02/02/2024 UA WITH CULTU RE REFLE X urine-color YELLOW yellow Not Available [facility] ([facility]) [address] [place], [address], 02/02/2024 12:37:08 02/01/20 24 02/02/2024 UA WITH CULTU RE REFLE X appearance CLEAR clear Not Available [facility] ([facility]) [address] [place], [address], 02/02/2024 12:37:08 02/01/20 24 02/02/2024 UA WITH CULTU RE REFLE X WBC esterase NEGATI VE negati ve Not Available [facility] ([facility]) [address] [place], [address], 02/02/2024 12:37:08 02/01/20 24 02/02/2024 UA WITH CULTU RE REFLE X protein TRACE negati ve/tra ce Not Available [facility] ([facility]) [address], [place], [address], 02/02/2024 12:37:08 02/01/20 24 02/02/2024 UA WITH CULTU RE REFLE X glucose NEGATI VE negati ve Not Available [facility] ([facility]) [address] [facility], [place], [address], 02/02/2024 12:37:08 02/01/20 24 02/02/2024 UA WITH CULTU RE REFLE X ketones TRACE negati ve abnormal Not Available [facility] ([facility]) [address] [facility], [place], [address], 02/02/2024 12:37:08 02/01/20 24 02/02/2024 UA WITH CULTU RE REFLE X occult blood NEGATI VE negati ve Not Available [facility] ([facility]) [address] [facility], [place], [address], 02/02/2024 12:37:08 02/01/20 24 02/02/2024 UA WITH CULTU RE REFLE X bilirubin NEGATI VE negati ve Not Available [facility] ([facility]) [address] [facility], [place], [address], 02/02/2024 12:37:08 02/01/20 24 02/02/2024 UA WITH CULTU RE REFLE X urobilinogen ,semi-qn 1.0 mg/dL 0.2-1. 0 Not Available [facility] ([facility]) [address] [facility], [place], [address], 02/02/2024 12:37:08 02/01/20 24 02/02/2024 UA WITH CULTU RE REFLE X nitrite, urine NEGATI VE negati ve Not Available [facility] ([facility]) [address] [facility], [place], [address], 02/02/2024 12:37:08 02/01/20 24 02/02/2024 UA WITH CULTU RE REFLE X microscopic examination COMMEN T Micro scopi c not indic ated and not perfo rmed. Not Available [facility] ([facility]) [address] [facility], [place], [address], 02/02/2024 12:37:08 02/01/20 24 02/02/2024 UA WITH CULTU RE REFLE X urinalysis reflex COMMEN T This speci men will not refle x to a Urine Cultu re. Not Available [facility] ([facility]) [address] [facility], [place], [address], 02/02/2024 12:37:08 03/18/20 24 03/19/2024 LIPID PANEL W/ CHOL/ HDL RATIO cholesterol, total 181 mg/dL 100-19 9 Not Available [facility] ([facility]) [address] [facility], [place], [address], 03/19/2024 03:37:02 03/18/20 24 03/19/2024 LIPID PANEL W/ CHOL/ HDL RATIO triglyceride s 211 mg/dL 0-149 above high normal Not Available [facility] ([facility]) [address] [place], [address], 03/19/2024 03:37:02 03/18/20 24 03/19/2024 LIPID PANEL W/ CHOL/ HDL RATIO HDL cholesterol 28 mg/dL >39 below low normal Not Available [facility] ([facility]) [address] [facility], [place], [address], 03/19/2024 03:37:02 03/18/20 24 03/19/2024 LIPID PANEL W/ CHOL/ HDL RATIO VLDL cholesterol kaylie 37 mg/dL 5-40 Not Available [facility] ([facility]) [address] [place], [address], 03/19/2024 03:37:02 03/18/20 24 03/19/2024 LIPID PANEL W/ CHOL/ HDL RATIO LDL chol calc ([facility]) 116 mg/dL 0-99 above high normal Not Available [facility] ([facility]) [address] [place], [address], 03/19/2024 03:37:02 03/18/20 24 03/19/2024 LIPID PANEL W/ CHOL/ HDL RATIO T. chol/HDL ratio 6.5 ratio 0.0-4. 4 above high normal T. Chol/ HDL Ratio Men Women 1/2 Avg.R isk 3.4 3.3 Avg.R isk 5.0 4.4 2X Avg.R isk 9.6 7.1 3X Avg.R isk 23.4 11.0 Not Available [facility] ([facility]) [address] [place], [address], 03/19/2024 03:37:02 03/18/20 24 03/19/2024 COMP. METAB OLIC PANEL (14) glucose 97 mg/dL 70-99 Not Available [facility] ([facility]) [address] [place], [address], 03/19/2024 03:37:03 03/18/20 24 03/19/2024 COMP. METAB OLIC PANEL (14) BUN 13 mg/dL 8-27 Not Available [facility] ([facility]) [address] [place], [address], 03/19/2024 03:37:03 03/18/20 24 03/19/2024 COMP. METAB OLIC PANEL (14) creatinine 0.93 mg/dL 0.57-1 .00 Not Available [facility] ([facility]) [address] [place], [address], 03/19/2024 03:37:03 03/18/20 24 03/19/2024 COMP. METAB OLIC PANEL (14) eGFR 70 mL/mi n/1.7 3 >59 Not Available [facility] ([facility]) [address] [facility], [place], [address], 03/19/2024 03:37:03 03/18/20 24 03/19/2024 COMP. METAB OLIC PANEL (14) BUN/creatini ne ratio 14 12-28 Not Available [facility] ([facility]) [address] [facility], [place], [address], 03/19/2024 03:37:03 03/18/20 24 03/19/2024 COMP. METAB OLIC PANEL (14) sodium 140 mmol/ L 134-14 4 Not Available [facility] ([facility]) [address] [facility], [place], [address], 03/19/2024 03:37:03 03/18/20 24 03/19/2024 COMP. METAB OLIC PANEL (14) potassium 5.1 mmol/ L 3.5-5. 2 Not Available [facility] ([facility]) [address] [facility], [place], [address], 03/19/2024 03:37:03 03/18/20 24 03/19/2024 COMP. METAB OLIC PANEL (14) chloride 106 mmol/ L 96-106 Not Available [facility] ([facility]) [address] [facility], [place], [address], 03/19/2024 03:37:03 03/18/20 24 03/19/2024 COMP. METAB OLIC PANEL (14) carbon dioxide, total 22 mmol/ L 20-29 Not Available [facility] ([facility]) [address] [facility], [place], [address], 03/19/2024 03:37:03 03/18/20 24 03/19/2024 COMP. METAB OLIC PANEL (14) calcium 9.9 mg/dL 8.7-10 .3 Not Available [facility] ([facility]) [address] [facility] [place], [address], 03/19/2024 03:37:03 03/18/20 24 03/19/2024 COMP. METAB OLIC PANEL (14) protein, total 6.8 g/dL 6.0-8. 5 Not Available [facility] ([facility]) [address] [facility] [place], [address], 03/19/2024 03:37:03 03/18/20 24 03/19/2024 COMP. METAB OLIC PANEL (14) albumin 4.2 g/dL 3.9-4. 9 Not Available [facility] ([facility]) [address] [place], [address], 03/19/2024 03:37:03 03/18/20 24 03/19/2024 COMP. METAB OLIC PANEL (14) globulin, total 2.6 g/dL 1.5-4. 5 Not Available [facility] ([facility]) [address] [facility], [address], 03/19/2024 03:37:03 03/18/20 24 03/19/2024 COMP. METAB OLIC PANEL (14) bilirubin, total 0.3 mg/dL 0.0-1. 2 Not Available [facility] ([facility]) [address] [place], [address], 03/19/2024 03:37:03 03/18/20 24 03/19/2024 COMP. METAB OLIC PANEL (14) alkaline phosphatase 94 IU/L 44-121 Not Available [facility] ([facility]) [address] [place], [address], 03/19/2024 03:37:03 03/18/20 24 03/19/2024 COMP. METAB OLIC PANEL (14) AST (SGOT) 23 IU/L 0-40 Not Available [facility] ([facility]) [address] [facility], [place], [address], 03/19/2024 03:37:03 03/18/20 24 03/19/2024 COMP. METAB OLIC PANEL (14) ALT (SGPT) 29 IU/L 0-32 Not Available [facility] ([facility]) [address] [facility], [place], [address], 03/19/2024 03:37:03 03/18/20 24 03/19/2024 HEMOG LOBIN A1C hemoglobin A1C 5.8 % 4.8-5. 6 above high normal Predi abete s: 5.7 - 6.4 Diabe see: >6.4 Glyce pancho contr ol for adult s with diabe see: <7.0 Not Available [facility] ([facility]) [address] [facility], [place], [address], 03/19/2024 03:37:04 03/18/20 24 03/18/2024 CBC WITH DIFFE RENTI AL/PL ATELE T WBC 5.9 x10e3 /uL 3.4-10 .8 Not Available [facility] ([facility]) [address] [facility], [place], [address], 03/19/2024 03:37:05 03/18/20 24 03/18/2024 CBC WITH DIFFE RENTI AL/PL ATELE T RBC 4.94 x10e6 /uL 3.77-5 .28 Not Available [facility] ([facility]) [address] [facility], [place], [address], 03/19/2024 03:37:05 03/18/20 24 03/18/2024 CBC WITH DIFFE RENTI AL/PL ATELE T hemoglobin 15.2 g/dL 11.1-1 5.9 Not Available [facility] ([facility]) [address] [place], [address], 03/19/2024 03:37:05 03/18/20 24 03/18/2024 CBC WITH DIFFE RENTI AL/PL ATELE T hematocrit 46.4 % 34.0-4 6.6 Not Available [facility] ([facility]) [address] [place], [address], 03/19/2024 03:37:05 03/18/20 24 03/18/2024 CBC WITH DIFFE RENTI AL/PL ATELE T MCV 94 fL 79-97 Not Available [facility] ([facility]) [address] [place], [address], 03/19/2024 03:37:05 03/18/2003/18/2024 CBC WITH DIFFE RENTI AL/PL ATELE T MCH 30.8 pg 26.6-3 3.0 Not Available [facility] ([facility]) [address] [place], [address], 03/19/2024 03:37:05 03/18/20 24 03/18/2024 CBC WITH DIFFE RENTI AL/PL ATELE T MCHC 32.8 g/dL 31.5-3 5.7 Not Available [facility] ([facility]) [address] [place], [address], 03/19/2024 03:37:05 03/18/20 24 03/18/2024 CBC WITH DIFFE RENTI AL/PL ATELE T RDW 12.1 % 11.7-1 5.4 Not Available [facility] ([facility]) [address] [place], [address], 03/19/2024 03:37:05 03/18/20 24 03/18/2024 CBC WITH DIFFE RENTI AL/PL ATELE T platelets 229 x10e3 /uL 150-45 0 Not Available [facility] ([facility]) [address] [place], [address], 03/19/2024 03:37:05 03/18/20 24 03/18/2024 CBC WITH DIFFE RENTI AL/PL ATELE T neutrophils 56 % notest ab. Not Available [facility] ([facility]) [address] [facility], [place], [address], 03/19/2024 03:37:05 03/18/20 24 03/18/2024 CBC WITH DIFFE RENTI AL/PL ATELE T lymphs 28 % notest ab. Not Available [facility] ([facility]) [address] [facility], [place], [address], 03/19/2024 03:37:05 03/18/20 24 03/18/2024 CBC WITH DIFFE RENTI AL/PL ATELE T monocytes 11 % notest ab. Not Available [facility] ([facility]) [address] [facility], [place], [address], 03/19/2024 03:37:05 03/18/20 24 03/18/2024 CBC WITH DIFFE RENTI AL/PL ATELE T eos 4 % notest ab. Not Available [facility] ([facility]) [address] [facility], [place], [address], 03/19/2024 03:37:05 03/18/20 24 03/18/2024 CBC WITH DIFFE RENTI AL/PL ATELE T basos 1 % notest ab. Not Available [facility] ([facility]) [address] [facility], [place], [address], 03/19/2024 03:37:05 03/18/20 24 03/18/2024 CBC WITH DIFFE RENTI AL/PL ATELE T neutrophils (absolute) 3.3 x10e3 /uL 1.4-7. 0 Not Available [facility] ([facility]) [address] [facility], [place], [address], 03/19/2024 03:37:05 03/18/20 24 03/18/2024 CBC WITH DIFFE RENTI AL/PL ATELE T lymphs (absolute) 1.6 x10e3 /uL 0.7-3. 1 Not Available [facility] ([facility]) [address] [facility], [place], [address], 03/19/2024 03:37:05 03/18/20 24 03/18/2024 CBC WITH DIFFE RENTI AL/PL ATELE T monocytes(ab solute) 0.7 x10e3 /uL 0.1-0. 9 Not Available [facility] ([facility]) [address] [facility], [place], [address], 03/19/2024 03:37:05 03/18/20 24 03/18/2024 CBC WITH DIFFE RENTI AL/PL ATELE T eos (absolute) 0.2 x10e3 /uL 0.0-0. 4 Not Available [facility] ([facility]) [address] [facility], [place], [address], 03/19/2024 03:37:05 03/18/20 24 03/18/2024 CBC WITH DIFFE RENTI AL/PL ATELE T baso (absolute) 0.1 x10e3 /uL 0.0-0. 2 Not Available [facility] ([facility]) [address] [facility], [place], [address], 03/19/2024 03:37:05 03/18/20 24 03/18/2024 CBC WITH DIFFE RENTI AL/PL ATELE T immature granulocytes 0 % notest ab. Not Available [facility] ([facility]) [address] [facility], [place], [address], 03/19/2024 03:37:05 03/18/20 24 03/18/2024 CBC WITH DIFFE RENTI AL/PL ATELE T immature grans (abs) 0.0 x10e3 /uL 0.0-0. 1 Not Available [facility] ([facility]) [address] [facility], [place], [address], 03/19/2024 03:37:05 04/03/20 24 04/03/2024 COLOG UARD cologuard result reportable POSITI VE negati ve abnormal POSIT ALLISON TEST RESUL T. A posit allison Colog uard resul t shoul d be follo wed with a colon oscop y or visua l exami natio n of the colon . The rachel l value (refe rence range ) for this assay is negat allison. TEST DESCR IPTIO N: [place] site algor ithmi c hien sis of stool DNA-b iojun christian with hemog lobin immun oassa y. Quant itati ve value s of indiv idual bioma rkers are not repor table and are not assoc iated with indiv idual bioma rker resul t refer ence range s. Colog uard is inten ded for color ectal cance r scree mallory of adult s of eithe r sex, 45 years or older , who are at [facility] for color ectal cance r (CRC) . Colog uard has been appro leoncio for use by the [place]. FDA. The perfo rmanc e of Colog uard was estab lishe d in a cross secti onal study of [facility] adult s aged 50-84 . Colog uard perfo rmanc e in patie nts ages 45 to 49 years was estim ated by willard-g jewel hien sis of near- age group s. Colon oscop ies perfo rmed for a posit allison resul t may find as the most clini tanner signi fican t lesio n: color ectal cance r [4.0% ], advan wade adeno ma (incl uding sessi le cristo liya polyp s great er than or equal to 1cm diame ter) [20%] or non- advan wade adeno ma [31%] ; or no color ectal neopl vashti [45%] . These estim ates are deriv ed from a prosp ectiv e cross -sect ional scree mallory study of 10,00 0 indiv idual s at [facility] risk for color ectal cance r who were scree tamie with both Colog uard and colon oscop y. (Francy Wolfe. et al, N Engl J Med 2014; 370(1 4):12 86-12 97.) Colog uard may produ ce a false negat allison or false posit allison resul t (no color ectal cance r or preca ncero us polyp prese nt at colon oscop y follo w up). A negat allison Colog uard test resul t does not guara ntee the absen ce of CRC or advan wade adeno ma (pre- cance r). The curre nt Colog uard scree mallory inter claudette is every 3 years . (Amer ican Cance r Socie ty and U.S. Multi -Soci ety Task Force ). Colog uard perfo rmanc e data in a 10,00 0 patie nt pivot al study using colon oscop y as the refer ence metho d can be acces sed at the follo wing locat ion: www.e xactl abs.c om/re ying . Addit ional descr iptio n of the Colog uard test proce ss, warni ngs and preca ution s can be found at www.c ologu tomas.c om. Not Available [employer] (Cologuard Orders Only) [address], [place], [address], 04/09/2024 09:54:57 01/01/20 24 01/01/2024 XR, chest No observ ation record ed. [address] [place] [address], [address], 01/01/2024 21:32:40 01/02/20 24 01/01/2024 XR, chest No observ ation record ed. [address], [place], [address], 01/07/2024 14:41:09 01/11/20 24 01/01/2024 US, echoc irajo gram No observ ation record ed. [facility] Not Available 2023 16:06:09 01/15/20 24 01/01/2024 exerc ise stres s test No observ ation record ed. [facility] Not Available 2023 18:20:52 03/28/20 24 01/01/2024 rosa can cardi olite stres s test (PROC ) No observ ation record ed. [email or web address] [facility] [address], [place], [address], 04/02/2024 18:58:09 Result Notes None recorded. Problems Name Problem SNOMED Code Status Onset Date Resolution Date Notes Provider Name and Address Organization Details Recorded Time Hyperlipidemia 49822171 Active 2023 Dinora Greer null, [place] [facility] 4 12:29:18 Body mass index 30+ - obesity 863900002 Active 2023 Dinora Gre[place], [place] [facility] 4 13:00:56 Obesity 423167969 Active 2023 THIAGO Gregorio Attn: Accountin g,[address] [facility], [place], [address], [place] - [facility] 4 15:57:08 Blood glucose outside reference range 020030694 Active 2023 THIAGO Gregorio Attn: Accountin g,[address] [facility], [place], [address], [place] - [facility] 4 15:57:10 Long-term drug therapy Active 2023 THIAGO Gregorio Attn: Accountin g,[address] [facility], [place], [address], [place] - [facility] 4 15:57:12 Benign essential hypertension 5517968 Active 2023 THIAGO Gregorio Attn: Accountin g,[address] [facility], [place], [address], [place] - [facility] 4 14:07:54 Gastroesophage al reflux disease without esophagitis 295949442 Active 2023 THIAGO Gregorio Attn: Accountin g,[address] [facility], [place], [address], [place] - [facility] 4 14:17:47 Nausea 908431646 Active 2023 THIAGO Gregorio Attn: Dimas schultz,[address] [facility], [place], [address], [facility] - SI 19:00:45 Prediabetes 753486367 Active 2023 THIAGO Gregorio Attn: Dimas schultz,[address] [facility], [place], [address], [facility] - SI 23:05:51 Problem Notes None recorded. Procedures Surgical History Date Name Laterality Status Provider Name and Address Organization Details Recorded Time ligation of bilateral fallopian tubes completed Mony Peraza MA [facility] 09/12/2023 12:58:17 Imaging Results Imaging Date Name Status LastModified by Organization Details LastModified Time 01/01/2024 XR, chest completed [address], [address], 01/01/2024 21:32:40 01/01/2024 XR, chest completed [address], [address], 01/07/2024 14:41:09 01/01/2024 US, echocardiogram completed [facility] Inform ation not available 01/11/2024 16:06:09 01/01/2024 exercise stress test completed [facility] Information not available 01/15/2024 18:20:52 01/01/2024 lexiscan cardiolite stress test (PROC) completed [address], [address], 04/02/2024 18:58:09 Procedure Notes None recorded. Medical Equipment None Reported. Allergies Allergen ID Allergen Name Allergen Category Reaction Reaction Severity Criticality Documentation Date Start Date Code Code System Note Provider Name and Address Organization Details Recorded Time [id number] penicilla mine medicatio n Not available Not available Not available 09/12/2023 7975 RxNorm Not Available Not Available Not Available [id number] Macrobid medicatio n hives Not available Not available 02/02/2024 63297 1 RxNorm Not Available Not Available Not Available Medications Name Sig Start Date Stop Date Status Note LastModified by Organization Details LastModified Time losartan 50 mg tablet Take 1 tablet every day by oral route for 90 days. active Not Available Not Available No t Available doxycycli ne hyclate 100 mg capsule TAKE 1 CAPSULE BY MOUTH TWICE DAILY 09/11 completed Not Available Not Available Not Available azithromy joel 250 mg tablet TAKE 2 TABLETS BY MOUTH ON DAY 1, AND THEN TAKE 1 TABLET BY MOUTH ONCE A DAY ON DAY 2 THROUGH DAY 5 02/01 completed Not Available Not Available Not Available amlodipin e 5 mg tablet TAKE 1 TABLET BY MOUTH ONCE DAILY 01/11 completed Not Available Not Available Not Available ciproflox acin 500 mg tablet TAKE 1 TABLET BY MOUTH TWICE DAILY FOR URINARY INFECTIO N FOR 7 DAYS 03/19 completed Not Available Not Available Not Available omeprazol e 40 mg capsule,d elayed release Take 1 capsule every day by oral route for 90 days. active Not Available Not Available No t Available Macrobid 100 mg capsule Take 1 capsule twice a day by oral route for 5 days, for UTI. 03/19 completed Not Available Not Available Not Available monteluka st 10 mg tablet one tab po daily 2023 active Not Available Not Available Not Avai lable ondansetr on 4 mg disintegr ating tablet Place 1 tablet every 6 hours by translin gual route as needed. active Not Available Not Available No t Available rosuvasta tin 5 mg tablet one tab po daily 12/26 completed PT STOPPED USING Not Available Not Available Not Available solifenac in 10 mg tablet Take 1 tablet by oral route for 90 days. active Not Available Not Available No t Available Wegovy 2.4 mg/0.75 mL subcutane ous pen injector Inject 2.4 mg every week by subcutan eous route. active Not Available Not Available No t Available Wegovy 1.7 mg/0.75 mL subcutane ous pen injector INJECT 1.7 MG (0.75 ML) SUBCUTAN EOUSLY ONCE A WEEK. active Not Available Not Available No t Available Wegovy 1 mg/0.5 mL subcutane ous pen injector INJECT 1 PEN SUBCUTAN EOUSLY ONCE A WEEK 03/19 completed Not Available Not Available Not Available Wegovy 0.25 mg/0.5 mL subcutane ous pen injector INJECT 1 SYRINGE SUBCUTAN EOUSLY ONCE A WEEK 03/19 completed Not Available Not Available Not Available Wegovy 0.5 mg/0.5 mL subcutane ous pen injector INJECT 0.5MG SUBCUTAN EOUSLY ONCE WEEKLY 03/19 completed Not Available Not Available Not Available Paxlovid 300 mg (150 mg x 2)-100 mg tablets in a dose pack TAKE 3 TABLETS TOGETHER (TWO 150 MG NIRMATRE LVIR TABLETS AND ONE 100 MG RITONAVI R TABLET) BY MOUTH TWICE DAILY FOR 5 DAYS. 10/29 completed Not Available Not Available Not Available Zepbound 2.5 mg/0.5 mL subcutane ous pen injector active Not Available Not Available Not Available Vitals Date Recorded Body height Provider Name an d Address Organization Details Last Updated DateTime 09/12/2023 172.72 cm Mony Peraza MA [facility] 2023 12:27:29 Date Recorded Body mass index (BMI) Body weight Provider Name and Address Organization Details Last Updated DateTime 09/12/2023 38.3 kg/m2 391430.28 g Mony Peraza MA [facility] 09/12/2023 12:27:34 Date Recorded Respiratory rate Provider Name a nd Address Organization Details Last Updated DateTime 09/12/2023 20 /min Mony Peraza MA [facility] 09/12/2023 12:27:47 Date Recorded Oxygen saturation Oxygen saturation in Arterial blood by Pulse oximetry Provider Name and Address Organization Details Last Updated DateTime 09/12/2023 95 % 95 % Mony Peraza MA [facility] 09/12/2023 12:28:59 Date Recorded Heart rate Provider Name an d Address Organization Details Last Updated DateTime 09/12/2023 86 /min Mony Peraza MA [facility] 2023 12:29:01 Date Recorded Body height Provider Name an d Address Organization Details Last Updated DateTime 12/27/2023 172.72 cm Mony Peraza MA MD Denis [facility] 2023 15:30:00 Date Recorded Body mass index (BMI) Body weight Provider Name and Address Organization Details Last Updated DateTime 12/27/2023 38.4 kg/m2 742703.35 g Mony Peraza MA MD [facility] 12/27/2023 15:37:55 Date Recorded Respiratory rate Provider Name a nd Address Organization Details Last Updated DateTime 12/27/2023 20 /min Mony Peraza MA MD Denis [facility] 12/27/2023 15:39:50 Date Recorded Oxygen saturation Oxygen saturation in Arterial blood by Pulse oximetry Provider Name and Address Organization Details Last Updated DateTime 12/27/2023 100 % 100 % Mony Peraza MA MD Denis [facility] 12/27/2023 15:39:52 Date Recorded Heart rate Provider Name an d Address Organization Details Last Updated DateTime 12/27/2023 72 /min Mony Peraza MA [facility] [place] 2023 15:40:00 Date Recorded Body height Provider Name an d Address Organization Details Last Updated DateTime 02/02/2024 172.72 cm JUANA Rios [facility] 2023 11:20:46 Date Recorded Body mass index (BMI) Body weight Provider Name and Address Organization Details Last Updated DateTime 02/02/2024 36.9 kg/m2 753780.23 g JUANA Rios [facility] 02/02/2024 11:23:47 Date Recorded Respiratory rate Provider Name a nd Address Organization Details Last Updated DateTime 02/02/2024 20 /min JUANA Rios [facility] 02/02/2024 11:25:42 Date Recorded Oxygen saturation Oxygen saturation in Arterial blood by Pulse oximetry Provider Name and Address Organization Details Last Updated DateTime 02/02/2024 97 % 97 % JUANA Rios [facility] 02/02/2024 11:25:58 Date Recorded Heart rate Provider Name an d Address Organization Details Last Updated DateTime 02/02/2024 77 /min Mony Peraza MA MD Denis [facility] 2023 11:27:22 Date Recorded Body height Provider Name an d Address Organization Details Last Updated DateTime 03/28/2024 172.72 cm Mony Peraza MA MD Denis [facility] 2023 13:58:10 Date Recorded Body mass index (BMI) Body weight Provider Name and Address Organization Details Last Updated DateTime 03/28/2024 35.5 kg/m2 824964.82 antoine Mony Peraza MA [facility] [place] 03/28/2024 14:01:17 Date Recorded Respiratory rate Provider Name a nd Address Organization Details Last Updated DateTime 03/28/2024 20 /min Mony Peraza MA MD Denis [facility] 03/28/2024 14:01:27 Date Recorded Oxygen saturation Oxygen saturation in Arterial blood by Pulse oximetry Provider Name and Address Organization Details Last Updated DateTime 03/28/2024 98 % 98 % Mony Peraza MA [facility] [place] 03/28/2024 14:04:20 Date Recorded Heart rate Provider Name an d Address Organization Details Last Updated DateTime 03/28/2024 88 /min Mony Peraza MA [facility] [place] 2023 14:04:19 Date Recorded Body height Provider Name an d Address Organization Details Last Updated DateTime 06/24/2024 172.72 cm Mony Peraza MA [facility] [place] 2023 11:47:08 Date Recorded Body mass index (BMI) Body weight Provider Name and Address Organization Details Last Updated DateTime 06/24/2024 33.6 kg/m2 232982.91 antoine Mony Peraza MA [facility] [place] 06/24/2024 11:47:10 Date Recorded Respiratory rate Provider Name a nd Address Organization Details Last Updated DateTime 06/24/2024 20 /min Mony Peraza MA [facility] [place] 06/24/2024 11:48:15 Date Recorded Oxygen saturation Oxygen saturation in Arterial blood by Pulse oximetry Provider Name and Address Organization Details Last Updated DateTime 06/24/2024 99 % 99 % Mony Peraza MA [facility] [place] 06/24/2024 11:52:33 Date Recorded Heart rate Provider Name an d Address Organization Details Last Updated DateTime 06/24/2024 77 /min Mony Peraza MA MD - [facility] 2023 11:52:36 Date Recorded Systolic blood pressure Diastolic blood pressure Provider Name and Address Organization Details Last Updated DateTime 09/12/2023 118 mm[Hg] 90 mm[Hg] THIAGO Gregorio Attn: Accounting[address] [facility], [place], [address], MD - [facility] 09/12/2023 12:57:23 Date Recorded Systolic blood pressure Diastolic blood pressure Provider Name and Address Organization Details Last Updated DateTime 09/12/2023 120 mm[Hg] 90 mm[Hg] THIAGO Gregorio Attn: Account[address] [place], [address], MD - [facility] 09/12/2023 12:57:30 Date Recorded Systolic blood pressure Diastolic blood pressure Provider Name and Address Organization Details Last Updated DateTime 12/27/2023 128 mm[Hg] 88 mm[Hg] Mony Peraza MA MD - [facility] 12/27/2023 15:41:17 Date Recorded Systolic blood pressure Diastolic blood pressure Provider Name and Address Organization Details Last Updated DateTime 12/27/2023 170 mm[Hg] 100 mm[Hg] THIAGO Gregorio Attn: Accounting[address] [place], [address], MD - [facility] 12/27/2023 16:09:23 Date Recorded Systolic blood pressure Diastolic blood pressure Provider Name and Address Organization Details Last Updated DateTime 12/27/2023 170 mm[Hg] 98 mm[Hg] THIAGO Gregorio Attn: [address] [place], [address], MD - [facility] 12/27/2023 16:09:15 Date Recorded Systolic blood pressure Diastolic blood pressure Provider Name and Address Organization Details Last Updated DateTime 02/02/2024 108 mm[Hg] 68 mm[Hg] Mony Peraza MA MD - [facility] 02/02/2024 11:27:31 Date Recorded Systolic blood pressure Diastolic blood pressure Provider Name and Address Organization Details Last Updated DateTime 03/28/2024 122 mm[Hg] 82 mm[Hg] Mony Peraza MA [facility] 03/28/2024 14:05:37 Date Recorded Systolic blood pressure Diastolic blood pressure Provider Name and Address Organization Details Last Updated DateTime 03/28/2024 128 mm[Hg] 80 mm[Hg] THIAGO Gregorio Attn: Accounting[address] [place], [address], [facility] 03/28/2024 14:23:17 Date Recorded Systolic blood pressure Diastolic blood pressure Provider Name and Address Organization Details Last Updated DateTime 06/24/2024 126 mm[Hg] 82 mm[Hg] Mony Peraza MA [facility] 06/24/2024 11:55:10 Date Recorded Systolic blood pressure Diastolic blood pressure Provider Name and Address Organization Details Last Updated DateTime 06/24/2024 118 mm[Hg] 80 mm[Hg] THIAGO Gregorio Attn: Accounting[address] [place], [address], [facility] 06/24/2024 12:08:59 Social History Question Answer Notes LastModified by Organizat ion Details LastModified Time Tobacco Smoking Status Never Smoker Mony Peraza MA null, [facility] 09/12/2023 12:26:46 Do You Have An Advance Directive? No Information not available 12/27/2023 What Is Your Level Of Alcohol Consumption? Occasional Information not available 09/12/2023 Are You Blind Or Do You Have Difficulty Seeing? Yes Glasses Information not available 09/12/2023 What Is Your Level Of Caffeine Consumption? Moderate Coffee 5x Cups A Day Information not available 09/12/2023 In The 14 Days Before Symptom Onset, Have You Had Close Contact With A Laboratory-confir med COVID-19 While That Case Was Ill? No Information not available 09/12/2023 In The 14 Days Before Symptom Onset, Have You Had Close Contact With A Person Who Is Under Investigation For COVID-19 While That Person Was Ill? No Information not available 09/12/2023 Have You Been To An Area Known To Be High Risk For COVID-19? No Information not available 09/12/2023 Are You Deaf Or Do You Have Serious Difficulty Hearing? No Information not available 09/12/2023 What Type Of Diet Are You Following? REGULAR Information not available 09/12/2023 Are There Any Guns Present In Your Home? No Information not available 09/12/2023 What Was The Date Of Your Most Recent Tobacco Screening? 06/24/2024 Information not available 06/24/2024 What Is Your Relationship Status? Information not available 12/27/2023 Do You Use Your Seat Belt Or Car Seat Routinely? Yes Information not available 09/12/2023 Do You Have Smoke And Carbon Monoxide Detectors In Your Home? Yes Information not available 09/12/2023 Do You Feel Stressed (tense, Restless, Nervous, Or Anxious, Or Unable To Sleep At Night)? [id number] Information not available 12/27/2023 Do You Use Any Illicit Or Recreational Drugs? No Information not available 09/12/2023 Do You Use Sunscreen Routinely? Yes Information not available 12/27/2023 Has Tobacco Cessation Counseling Been Provided? No Information not available 09/12/2023 Do You Or Have You Ever Used Any Other Forms Of Tobacco Or Nicotine? No Information not available 12/27/2023 Sex: Female Functional Status Question Answer Note LastModified by Organization D etails LastModified Time Are you able to care for yourself? Yes Information n ot available 09/12/2023 What is your exercise level? None Information not available 06/24/2024 Mental Status None recorded. Family History Relationship Description Onset Age of this Age Resolved Age Notes LastModified by Organization Details LastModified Time Mother Depressive disorder [email or web address] Not available 2023 12:58:31 Mother Heart disease [email or web address] Not available 2023 12:58:42 Mother Hypertensive disorder tcarterma Not available 2023 12:58:50 Mother Hypercholest erolemia tcarterma Not available 2023 12:59:03 Mother Migraine tcarterma Not availabl e 09/12/2023 12:59:10 Father Diabetes mellitus tcarterma Not available 2023 12:58:36 Sister Hypercholest erolemia tcarterma Not available 2023 12:59:03 Medical History Condition Response Coronary Artery Disease N Other N Atrial Fibrillation N High Blood Pressure N Thyroid Problems N Kidney or Bladder Problems N GI Problems N Depression N COPD N Blood Clots N Skin Problems N Anemia N Heart Attack ([place]) N Diabetes N Anxiety Disorder N Muscle, Joint, or Bone Problems N Seizures/Epilepsy N Acid Reflux (GERD) N Cancer N Stroke N Asthma N Allergies Y High Cholesterol N Hepatitis N Liver Disease N Headaches N Osteoporosis N Heart Failure N Gynecological History Statement/Question Response Menses Monthly N Current Control Method Other Obstetrics History GPAL:G 3 P 3 0 0 3 Type Value Multiple Births 0 Full Term 3 Induced 0 Spontaneous 0 Premature 0 Living 3 Ectopics 0 Total 3 Immunizations Vaccine Type Date Status Note Provider Nam e and Address Organization Details Recorded Time Hep A, adult 07/06/1999 completed JUANA Rios MD - [facility] 06/24/2024 11:48:01 Hep A, adult 05/22/2000 completed JUANA Rios, MD - [facility] 06/24/2024 11:48:01 Past Encounters Encounter ID Performer Location Encounter Start Date Encounter Closed Date Diagnosis/Indication Diagnosis SNOMED-CT Code Diagnosis ICD10 Code Diagnosis Note [id number] THIAGO Gregorio [facility] [address] [place] [address] 09/12/2023 12:09:57 09/12/2023 13:00:18 Obesity 671891826 E66.9 refer for bariatric surgery consultati on. Hyperlipidemia 59495365 E78.5 stable on statin therapy. due for fasting lipid panel. Blood gluc ose outside reference range 365234869 R73.09 due for a1c screening. hx of elevated glucose ranges at times with a1c prediabete s range. Thyroid di sorder screening 148212804 Z13.29 routine thyroid panel ordered. Long-term drug therapy 478105802 Z79.899 routine cbc, cmp and b12 and folate labs are due. [id number] THIAGO Gregorio [facility] [address] [place] [address] 12/27/2023 15:27:26 12/27/2023 16:14:18 Hyperlipidemia 84679222 E78.5 she stopped cholestero l medication after her august labs. her labs were great on the medication but she stopped and wants to be off med. Obesity 429461664 E66.9 discussed healthy diet, exercise, controllin g carbohydra see and added sugars in the diet Blood gluc ose outside reference range 576228685 R73.09 5.9% a1c. Next labs are due in March. Encouraged lowering carbohydra te intake and lowering sugars in the diet. Long-term drug therapy 499046298 Z79.899 CBC and CMP due again in March Body mass index 30+ - obesity 550628983 Z68.38 BMI is 38.4. Patient is interested in starting that bound therapy. start zepbound injectable therapy. no personal or family hx of Medullary thyroid cancer or MEN conditions . Benign ess ential hypertension 4084602 I10 Start amlodipine 5 mg daily for blood pressure elevation of 170/98 today. Encouraged patient to check home blood pressure readings and report back via the portal to provider. Acute sinusitis 01928026 J01.90 Script for Z-Elie sent out for ongoing sinus/resp iratory symptoms for the last several weeks. [id number] John Bahena MD [facility] ([facility]ult [facility] [address] [place] [address] 02/02/2024 11:14:23 02/02/2024 12:34:18 Urinary tract infectious disease 22725508 N39.0 [id number] THIAGO Gregorio [facility] [address] [place] [address] 03/28/2024 13:52:59 03/28/2024 14:46:09 Benign essential hypertension 9227730 I10 Blood pressure is well-contr olled on losartan 50 mg daily Hyperlipidemia 77690293 E78.5 she stopped cholestero l medication after her august labs. her labs were great on the medication but she stopped and wants to be off med. Repeat fasting lipids in August Blood gluc ose outside reference range 857235491 R73.09 5.8% a1c. Stable and improving repeat A1c in August Body mass index 30+ - obesity 956452982 Z68.38 BMI is down to 35.5. Fasting insulin ordered for next labs Obesity 489810452 E66.9 discussed healthy diet, exercise, controllin g carbohydra see and added sugars in the diet Long-term drug therapy 036008247 Z79.899 CBC and CMP due again in September 19, 2024 Gastroesop hageal reflux disease without esophagitis 082433656 K21.9 Continue omeprazole 40 mg daily for acid reflux management Adult heal th examination 638824073 Z00.01 Annual wellness exam completed Screening mammography 24 239152 Z12.31 Annual mammogram ordered Screening for malignant neoplasm of colon 909610819 Z12.11 Patient opts for Cologuard screening method, average risk Nausea 005796376 R11.0 P.r.n. script for dissolvabl e Zofran given to accompany Wegovy use when needed [id number] THIAGO Gregorio [facility] [address] [place] [address] 06/24/2024 11:38:44 06/24/2024 15:11:29 Nausea 240073816 R11.0 P.r.n. script for dissolvabl e Zofran given to accompany Wegovy use when needed Body mass index 30+ - obesity 336177639 Z68.33 BMI is down to 33.6. Refill Wegovy 2.4 mg weekly Benign ess ential hypertension 6189268 I10 Blood pressure is well-contr olled on losartan 50 mg daily. 118/80 today Obesity 372033722 E66.9 discussed healthy diet, exercise, controllin g carbohydra see and added sugars in the diet Prediabetes 045630484 R7 3.03 5.8% a1c. Stable and improving repeat A1c in August. Any compounded semaglutid e would have to come from an alternate provider as this provider is not able to provide those prescripti ons Health Concerns Section Related Observation LastModified by Organization Detai ls LastModified Time None Recorded Concern Status LastModified by Organization Details LastModified Time None Recorded Advance Directives Directive N: Payers Encounter Date Sequence Insurance Name Policy Number Policy Cool Covered Member ID Cool Member ID Guarantor Name 09/12/2023 1 [employer] [place] [address] [id number] Anel Fernandez 12/27/2023 1 [employer] [place] [address] [id number] Anel Fernandez 02/02/2024 1 [employer] [place] [address] [id number] Anel Fernandez 03/28/2024 1 [employer] [place] [address] [id number] Anel Fernandez 06/24/2024 1 [employer] [place] [address] [id number] Anel Fernandez Notes Date Note Type Note Provider Name and Address Organization Details Recorded Time 4 text/html Generic HPI TemplateReported bypatient.Notes:pt is interested in gastric sleeve surgery.ObesityReported bypatient.Context:no oral steroids Associated Symptoms:no depression; no chronic illness; no Prader-Willi Syndrome Co-morbidities:overweight/o bese;impaired glucose tolerance;elevated cholesterol Lifestyle changes:changes in living situation;not losing weight THIAGO Gregorio Attn: Accounting,[address] [facility], [place], [address], [facility] [place] 09/12/2023 22:43:46 4 text/html HyperlipidemiaReported bypatient.Notes:Patient has been on statin medication therapy which has kept lipid panel within normal range controlled pyramidal. She is interested in not taking statin therapy because of potential side effects and joint pain.HypertensionReported bypatient.Notes:Patient does have elevation in blood pressure today and is here to discuss.Sinusitis/AllergyRe ported bypatient.Notes:Patient reports she has ongoing congestion yellow-green mucus production mild cough and sinus pressure for the last several weeks to few months. She has only been taking [id number] options and Singulair 10 mg daily. THIAGO Gregorio Attn: Accounting,[address] [facility], [place], [address], [facility] 01/07/2024 14:08:19 4 text/html on or around January 04 she started having a little bit back pain when she was in [place] does not remember 1 specific instance but has been kind of a nagging pain in her back and she has developed some urinary urgency as well. Also little bit of pressure in her lower abdomen. No radicular symptoms from her back which is only mild maybe moderate in the discomfort. She has had bladder infections before and the urgency that she is having she says feels like it the back pain does not John Bahena MD Attn: Accounting,[address] [facility], [place], [address], [facility] [place] 02/02/2024 13:47:59 4 text/html HyperlipidemiaReported bypatient.Notes:Patient has been on statin medication therapy which has kept lipid panel within normal range controlled pyramidal. She is interested in not taking statin therapy because of potential side effects and joint pain.HypertensionReported bypatient.Notes:Patient is taking losartan 50 mg daily for blood pressure management now. She was unable to tolerate amlodipine due to swelling side effectsReflux/GERDReported bypatient.Notes:Patient is taking omeprazole 40 mg daily for acid reflux management and doing well Patient does have prediabetes risk based on laboratory levels reviewed today. THIAGO Gregorio Attn: Accounting,[address] [facility], [place], [address], [facility] [place] 04/02/2024 19:01:57 4 text/html HyperlipidemiaReported bypatient.Notes:Patient has been on statin medication therapy which has kept lipid panel within normal range controlled pyramidal. She is interested in not taking statin therapy because of potential side effects and joint pain.HypertensionReported bypatient.Notes:Patient is taking losartan 50 mg daily for blood pressure management now. She was unable to tolerate amlodipine due to swelling side effects Patient does have prediabetes and wants to start compound semaglutide therapy. She was hopeful that provider would be able to order that through this office. Her insurance is going to stopped covering Wegovy therapy at the beginning of the new year THIAGO Gregorio Attn: Accounting,[address] [facility], [place], [address], [facility] 07/02/2024 23:06:45 OBGyn Episode No OBEpisode recorded.
[2024-08-06 16:28] VITALS: BMI 33.4
--- OUTSIDE RECORDS SUMMARY | 2024-08-08 00:37 | XMS_ITS | Clinical Summary ---
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
--- OUTSIDE RECORDS SUMMARY | 2024-08-08 00:37 | XMS_ITS | Data Portability ---
[facility] Organization [facility] Address [address] [place] [address] Care Team Providers Care Supervisor Public Health Nursing Name Role Phone WALESKA DELEON Primary Care Provider Unavailab le Assessment Encounter [...] her lumbar spine and more musculoskeletal etiology Not available 02/02/2024 13:47:42 06/24/2024 06/24/2024 jul 09 diagnost ic colonoscopy planned [email or web address] Not available 06/24/2024 12:02:40 Plan of Treatment Reminders Order Date Submit Date Provider Last Modified By Organization Details Last Modified Time Details Appointments ANY 15 2024 09:00A M THIAGO Gregorio Not available Not available Not available Lab TSH + free T4, serum 2023 024 [facility], [address], [address], [place], [address], 11/03/2023 15:24:47 CBC w/ auto diff 2023 024 gus [facility], [address], [address], [place], [address], 11/03/2023 15:24:47 CMP, serum or plasma 2023 024 CANDACE [facility], [address], [address], [place], [address], 10/29/2023 23:41:06 vitamin B12 + folate, serum or blood 2023 024 [facility], [address], [address], [place], [address], 11/03/2023 15:24:47 HbA1c (hemoglob in A1c), blood 2023 024 [facility], [address], [address], [place], [address], 11/03/2023 15:24:47 lipid panel, serum 2023 024 [facility], [address], [address], [place], [address], 11/03/2023 15:24:47 CBC w/ auto diff 2023 024 CANDACE [facility], [address] [facility], [facility] [address], [place], [address], 03/19/2024 03:37:05 CMP, serum or plasma 2023 024 CAND[facility], [address] [facility], [facility], [place], [address], 03/19/2024 03:37:03 HbA1c (hemoglob in A1c), blood 2023 024 CANDACE [facility], [address] [facility] [facility], [facility], [place], [address], 03/19/2024 03:37:04 lipid panel, serum 2023 024 CANDACE [facility], [address] [facility] [facility], [address], [place], [address], 03/19/2024 03:37:02 HbA1c (hemoglob in A1c), blood 2023 025 [email or web address] [facility], [address] [place] [address] 2, [place], [address], 03/28/2024 14:24:08 CBC w/ auto diff 2023 025 [email or web address] [facility], [address] [place] [address], [place], [address], 03/28/2024 14:24:08 CMP, serum or plasma 2023 025 [email or web address] [facility], [address] [place] [address] 2, [place], [address], 03/28/2024 14:24:08 TSH + free T4, serum 2023 025 [email or web address] [facility], [address] [place] [address], [place], [address], 03/28/2024 14:24:08 lipid panel, serum 2023 025 [email or web address] [facility], [address] [place] [address] 2, [place], [address], 03/28/2024 14:24:08 noninvasi ve colorecta l cancer DNA + occult blood screening , QL, stool 2023 024 [facility] (Cologuard Orders Only), [address], [address], [place], [address], 04/09/2024 09:54:57 insulin, serum 2023 025 [email or web address] [facility], [address] [place] [address] 2, [place], [address], 03/28/2024 14:24:08 Referral bariatric surgery referral 2023 024 [email or web address] Hero Mckeon MD, [address] [facility] , [address], [place], [address], 09/12/2023 13:00:18 Procedures None recorded. Surgeries None recorded. Imaging MAMMO, screening , digital, bilateral 2023 024 [email or web address] [facility], [address], [address], [place], [address], 07/30/2024 16:48:15 Medication Orders Zithromax Z-Elie 250 mg tablet 2023 024 [facility] [address] [place], [address], 02/02/2024 12:07:52 amlodipin e 5 mg tablet 2023 024 [facility] [address] [place], [address], 01/12/2024 18:01:05 Zepbound 2.5 mg/0.5 mL subcutane ous pen injector 2023 024 [email or web address] [facility] [address] [employer] [facility] [place], [address], 01/09/2024 13:58:47 Macrobid 100 mg capsule 2023 024 [facility] [address] [place], [address], 03/19/2024 09:18:41 ondansetr on 4 mg disintegr ating tablet 2023 024 [email or web address] [facility] [address] [place], [address], 06/24/2024 11:50:27 ondansetr on 4 mg disintegr ating tablet 2023 024 [facility] [address] [place], [address], 06/24/2024 12:02:36 Wegovy 2.4 mg/0.75 mL subcutane ous pen injector 2023 1223 024 CANDACE [facility] [address] [employer], [address], 06/24/2024 12:02:35 Patient TargetsNo targets recorded. Patient InstructionsNo instructions recorded. Reason for Referral Bariatric Surgery Referral f or Obesity Referring Physician: Waleska Deleon, Internal Medicine, Encounter Date: 09/12/2023 Results Created Date Observation Date Name Description Value Unit Range Abnormal Flag Note LastModifiedBy Organization Detail LastModifiedTime 02/01/2002/02/2024 UA WITH CULTU RE REFLE X specific gravity 1.027 1.005- 1.030 Not Available [facility] ([facility]) [address] [place], [address], 02/02/2024 12:37:08 02/01/20 24 02/02/2024 UA WITH CULTU RE REFLE X pH 5.5 5.0-7. 5 Not Available [facility] ([facility]) [address] [place], [address], 02/02/2024 12:37:08 02/01/20 24 02/02/2024 UA WITH CULTU RE REFLE X urine-color YELLOW yellow Not Available [facility] ([facility]) [address] [place], [address], 02/02/2024 12:37:08 02/01/20 24 02/02/2024 UA WITH CULTU RE REFLE X appearance CLEAR clear Not Available [facility] ([facility]) [address] [place], [address], 02/02/2024 12:37:08 02/01/20 24 02/02/2024 UA WITH CULTU RE REFLE X WBC esterase NEGATI VE negati ve Not Available [facility] ([facility]) [address] [place], [address], 02/02/2024 12:37:08 02/01/20 24 02/02/2024 UA WITH CULTU RE REFLE X protein TRACE negati ve/tra ce Not Available [facility] ([facility]) [address], [place], [address], 02/02/2024 12:37:08 02/01/20 24 02/02/2024 UA WITH CULTU RE REFLE X glucose NEGATI VE negati ve Not Available [facility] ([facility]) [address] [facility], [place], [address], 02/02/2024 12:37:08 02/01/20 24 02/02/2024 UA WITH CULTU RE REFLE X ketones TRACE negati ve abnormal Not Available [facility] ([facility]) [address] [facility], [place], [address], 02/02/2024 12:37:08 02/01/20 24 02/02/2024 UA WITH CULTU RE REFLE X occult blood NEGATI VE negati ve Not Available [facility] ([facility]) [address] [facility], [place], [address], 02/02/2024 12:37:08 02/01/20 24 02/02/2024 UA WITH CULTU RE REFLE X bilirubin NEGATI VE negati ve Not Available [facility] ([facility]) [address] [facility], [place], [address], 02/02/2024 12:37:08 02/01/20 24 02/02/2024 UA WITH CULTU RE REFLE X urobilinogen ,semi-qn 1.0 mg/dL 0.2-1. 0 Not Available [facility] ([facility]) [address] [facility], [place], [address], 02/02/2024 12:37:08 02/01/20 24 02/02/2024 UA WITH CULTU RE REFLE X nitrite, urine NEGATI VE negati ve Not Available [facility] ([facility]) [address] [facility], [place], [address], 02/02/2024 12:37:08 02/01/20 24 02/02/2024 UA WITH CULTU RE REFLE X microscopic examination COMMEN T Micro scopi c not indic ated and not perfo rmed. Not Available [facility] ([facility]) [address] [facility], [place], [address], 02/02/2024 12:37:08 02/01/20 24 02/02/2024 UA WITH CULTU RE REFLE X urinalysis reflex COMMEN T This speci men will not refle x to a Urine Cultu re. Not Available [facility] ([facility]) [address] [facility], [place], [address], 02/02/2024 12:37:08 03/18/20 24 03/19/2024 LIPID PANEL W/ CHOL/ HDL RATIO cholesterol, total 181 mg/dL 100-19 9 Not Available [facility] ([facility]) [address] [facility], [place], [address], 03/19/2024 03:37:02 03/18/20 24 03/19/2024 LIPID PANEL W/ CHOL/ HDL RATIO triglyceride s 211 mg/dL 0-149 above high normal Not Available [facility] ([facility]) [address] [place], [address], 03/19/2024 03:37:02 03/18/20 24 03/19/2024 LIPID PANEL W/ CHOL/ HDL RATIO HDL cholesterol 28 mg/dL >39 below low normal Not Available [facility] ([facility]) [address] [facility], [place], [address], 03/19/2024 03:37:02 03/18/20 24 03/19/2024 LIPID PANEL W/ CHOL/ HDL RATIO VLDL cholesterol kaylie 37 mg/dL 5-40 Not Available [facility] ([facility]) [address] [place], [address], 03/19/2024 03:37:02 03/18/20 24 03/19/2024 LIPID PANEL W/ CHOL/ HDL RATIO LDL chol calc ([facility]) 116 mg/dL 0-99 above high normal Not Available [facility] ([facility]) [address] [place], [address], 03/19/2024 03:37:02 03/18/20 24 03/19/2024 LIPID PANEL W/ CHOL/ HDL RATIO T. chol/HDL ratio 6.5 ratio 0.0-4. 4 above high normal T. Chol/ HDL Ratio Men Women 1/2 Avg.R isk 3.4 3.3 Avg.R isk 5.0 4.4 2X Avg.R isk 9.6 7.1 3X Avg.R isk 23.4 11.0 Not Available [facility] ([facility]) [address] [place], [address], 03/19/2024 03:37:02 03/18/20 24 03/19/2024 COMP. METAB OLIC PANEL (14) glucose 97 mg/dL 70-99 Not Available [facility] ([facility]) [address] [place], [address], 03/19/2024 03:37:03 03/18/20 24 03/19/2024 COMP. METAB OLIC PANEL (14) BUN 13 mg/dL 8-27 Not Available [facility] ([facility]) [address] [place], [address], 03/19/2024 03:37:03 03/18/20 24 03/19/2024 COMP. METAB OLIC PANEL (14) creatinine 0.93 mg/dL 0.57-1 .00 Not Available [facility] ([facility]) [address] [place], [address], 03/19/2024 03:37:03 03/18/20 24 03/19/2024 COMP. METAB OLIC PANEL (14) eGFR 70 mL/mi n/1.7 3 >59 Not Available [facility] ([facility]) [address] [facility], [place], [address], 03/19/2024 03:37:03 03/18/20 24 03/19/2024 COMP. METAB OLIC PANEL (14) BUN/creatini ne ratio 14 12-28 Not Available [facility] ([facility]) [address] [facility], [place], [address], 03/19/2024 03:37:03 03/18/20 24 03/19/2024 COMP. METAB OLIC PANEL (14) sodium 140 mmol/ L 134-14 4 Not Available [facility] ([facility]) [address] [facility], [place], [address], 03/19/2024 03:37:03 03/18/20 24 03/19/2024 COMP. METAB OLIC PANEL (14) potassium 5.1 mmol/ L 3.5-5. 2 Not Available [facility] ([facility]) [address] [facility], [place], [address], 03/19/2024 03:37:03 03/18/20 24 03/19/2024 COMP. METAB OLIC PANEL (14) chloride 106 mmol/ L 96-106 Not Available [facility] ([facility]) [address] [facility], [place], [address], 03/19/2024 03:37:03 03/18/20 24 03/19/2024 COMP. METAB OLIC PANEL (14) carbon dioxide, total 22 mmol/ L 20-29 Not Available [facility] ([facility]) [address] [facility], [place], [address], 03/19/2024 03:37:03 03/18/20 24 03/19/2024 COMP. METAB OLIC PANEL (14) calcium 9.9 mg/dL 8.7-10 .3 Not Available [facility] ([facility]) [address] [facility] [place], [address], 03/19/2024 03:37:03 03/18/20 24 03/19/2024 COMP. METAB OLIC PANEL (14) protein, total 6.8 g/dL 6.0-8. 5 Not Available [facility] ([facility]) [address] [facility] [place], [address], 03/19/2024 03:37:03 03/18/20 24 03/19/2024 COMP. METAB OLIC PANEL (14) albumin 4.2 g/dL 3.9-4. 9 Not Available [facility] ([facility]) [address] [facility] [place], [address], 03/19/2024 03:37:03 03/18/20 24 03/19/2024 COMP. METAB OLIC PANEL (14) globulin, total 2.6 g/dL 1.5-4. 5 Not Available [facility] ([facility]) [address] [facility] [place], [address], 03/19/2024 03:37:03 03/18/20 24 03/19/2024 COMP. METAB OLIC PANEL (14) bilirubin, total 0.3 mg/dL 0.0-1. 2 Not Available [facility] ([facility]) [address] [facility] [place], [address], 03/19/2024 03:37:03 03/18/20 24 03/19/2024 COMP. METAB OLIC PANEL (14) alkaline phosphatase 94 IU/L 44-121 Not Available [facility] ([facility]) [address] [facility] [place], [address], 03/19/2024 03:37:03 03/18/20 24 03/19/2024 COMP. METAB OLIC PANEL (14) AST (SGOT) 23 IU/L 0-40 Not Available [facility] ([facility]) [address] [facility], [place], [address], 03/19/2024 03:37:03 03/18/20 24 03/19/2024 COMP. METAB OLIC PANEL (14) ALT (SGPT) 29 IU/L 0-32 Not Available [facility] ([facility]) [address] [facility], [place], [address], 03/19/2024 03:37:03 03/18/20 24 03/19/2024 HEMOG LOBIN A1C hemoglobin A1C 5.8 % 4.8-5. 6 above high normal Predi abete s: 5.7 - 6.4 Diabe see: >6.4 Glyce pancho contr ol for adult s with diabe see: <7.0 Not Available [facility] ([facility]) [address] [facility], [place], [address], 03/19/2024 03:37:04 03/18/20 24 03/18/2024 CBC WITH DIFFE RENTI AL/PL ATELE T WBC 5.9 x10e3 /uL 3.4-10 .8 Not Available [facility] ([facility]) [address] [facility], [place], [address], 03/19/2024 03:37:05 03/18/20 24 03/18/2024 CBC WITH DIFFE RENTI AL/PL ATELE T RBC 4.94 x10e6 /uL 3.77-5 .28 Not Available [facility] ([facility]) [address] [facility], [place], [address], 03/19/2024 03:37:05 03/18/20 24 03/18/2024 CBC WITH DIFFE RENTI AL/PL ATELE T hemoglobin 15.2 g/dL 11.1-1 5.9 Not Available [facility] ([facility]) [address] [place], [address], 03/19/2024 03:37:05 03/18/20 24 03/18/2024 CBC WITH DIFFE RENTI AL/PL ATELE T hematocrit 46.4 % 34.0-4 6.6 Not Available [facility] ([facility]) [address] [place], [address], 03/19/2024 03:37:05 03/18/20 24 03/18/2024 CBC WITH DIFFE RENTI AL/PL ATELE T MCV 94 fL 79-97 Not Available [facility] ([facility]) [address] [place], [address], 03/19/2024 03:37:05 03/18/2003/18/2024 CBC WITH DIFFE RENTI AL/PL ATELE T MCH 30.8 pg 26.6-3 3.0 Not Available [facility] ([facility]) [address] [place], [address], 03/19/2024 03:37:05 03/18/20 24 03/18/2024 CBC WITH DIFFE RENTI AL/PL ATELE T MCHC 32.8 g/dL 31.5-3 5.7 Not Available [facility] ([facility]) [address] [place], [address], 03/19/2024 03:37:05 03/18/20 24 03/18/2024 CBC WITH DIFFE RENTI AL/PL ATELE T RDW 12.1 % 11.7-1 5.4 Not Available [facility] ([facility]) [address] [place], [address], 03/19/2024 03:37:05 03/18/20 24 03/18/2024 CBC WITH DIFFE RENTI AL/PL ATELE T platelets 229 x10e3 /uL 150-45 0 Not Available [facility] ([facility]) [address] [place], [address], 03/19/2024 03:37:05 03/18/20 24 03/18/2024 CBC WITH DIFFE RENTI AL/PL ATELE T neutrophils 56 % notest ab. Not Available [facility] ([facility]) [address] [facility], [place], [address], 03/19/2024 03:37:05 03/18/20 24 03/18/2024 CBC WITH DIFFE RENTI AL/PL ATELE T lymphs 28 % notest ab. Not Available [facility] ([facility]) [address] [facility], [place], [address], 03/19/2024 03:37:05 03/18/20 24 03/18/2024 CBC WITH DIFFE RENTI AL/PL ATELE T monocytes 11 % notest ab. Not Available [facility] ([facility]) [address] [facility], [place], [address], 03/19/2024 03:37:05 03/18/20 24 03/18/2024 CBC WITH DIFFE RENTI AL/PL ATELE T eos 4 % notest ab. Not Available [facility] ([facility]) [address] [facility], [place], [address], 03/19/2024 03:37:05 03/18/20 24 03/18/2024 CBC WITH DIFFE RENTI AL/PL ATELE T basos 1 % notest ab. Not Available [facility] ([facility]) [address] [facility], [place], [address], 03/19/2024 03:37:05 03/18/20 24 03/18/2024 CBC WITH DIFFE RENTI AL/PL ATELE T neutrophils (absolute) 3.3 x10e3 /uL 1.4-7. 0 Not Available [facility] ([facility]) [address] [facility], [place], [address], 03/19/2024 03:37:05 03/18/20 24 03/18/2024 CBC WITH DIFFE RENTI AL/PL ATELE T lymphs (absolute) 1.6 x10e3 /uL 0.7-3. 1 Not Available [facility] ([facility]) [address] [facility], [place], [address], 03/19/2024 03:37:05 03/18/20 24 03/18/2024 CBC WITH DIFFE RENTI AL/PL ATELE T monocytes(ab solute) 0.7 x10e3 /uL 0.1-0. 9 Not Available [facility] ([facility]) [address] [facility], [place], [address], 03/19/2024 03:37:05 03/18/20 24 03/18/2024 CBC WITH DIFFE RENTI AL/PL ATELE T eos (absolute) 0.2 x10e3 /uL 0.0-0. 4 Not Available [facility] ([facility]) [address] [facility], [place], [address], 03/19/2024 03:37:05 03/18/20 24 03/18/2024 CBC WITH DIFFE RENTI AL/PL ATELE T baso (absolute) 0.1 x10e3 /uL 0.0-0. 2 Not Available [facility] ([facility]) [address] [facility], [place], [address], 03/19/2024 03:37:05 03/18/20 24 03/18/2024 CBC WITH DIFFE RENTI AL/PL ATELE T immature granulocytes 0 % notest ab. Not Available [facility] ([facility]) [address] [facility], [place], [address], 03/19/2024 03:37:05 03/18/20 24 03/18/2024 CBC WITH DIFFE RENTI AL/PL ATELE T immature grans (abs) 0.0 x10e3 /uL 0.0-0. 1 Not Available [facility] ([facility]) [address] [facility], [place], [address], 03/19/2024 03:37:05 04/03/20 24 04/03/2024 COLOG UARD [...] is negat allison. TEST DESCR IPTIO N: [place] site algor ithmi c hien sis of [...] years or older , who are at [facility] for color ectal cance r (CRC) . Colog uard has been appro leoncio for use by the [place] FDA. The perfo rmanc e of Colog uard was estab lishe d in a cross secti onal study of [facility] adult s aged 50-84 . Colog uard [...] of 10,00 0 indiv idual s at [facility] risk for color ectal cance r who [...] at www.c ologu tomas.c om. Not Available [facility] (Cologuard Orders Only) [address], [place], [address], 04/09/2024 09:54:57 01/01/20 24 01/01/2024 XR, chest No observ ation record ed. [address] [place] [address], [address], 01/01/2024 21:32:40 01/02/20 24 01/01/2024 XR, chest No observ ation record ed. [address], [place], [address], 01/07/2024 14:41:09 01/11/20 24 01/01/2024 US, echoc irajo gram No observ ation record ed. [facility] Not Available 2023 16:06:09 01/15/20 24 01/01/2024 exerc ise stres s test No observ ation record ed. [facility] Not Available 2023 18:20:52 03/28/20 24 01/01/2024 rosa can cardi olite stres s test (PROC ) No observ ation record ed. [email or web address] [facility] [address], [place], [address], 04/02/2024 18:58:09 Result Notes None recorded. Problems Name Problem SNOMED Code Status Onset Date Resolution Date Notes Provider Name and Address Organization Details Recorded Time Hyperlipidemia 49668499 Active 2023 Dinora Greer null, [place] - [facility] 4 12:29:18 Body mass index 30+ - obesity 657460336 Active 2023 Dinora Greer [place], [place] [facility] 4 13:00:56 Obesity 343691286 Active 2023 THIAGO Gregorio Attn: Accountin g,[address] [facility], [place], [address], [place] - [facility] 4 15:57:08 Blood glucose outside reference range 865474848 Active 2023 THIAGO Gregorio Attn: Accountin g,[address] [facility], [place], [address], [place] - [facility] 4 15:57:10 Long-term drug therapy Active 2023 THIAGO Gregorio Attn: Accountin g,[address] [facility], [place], [address], [place] - [facility] 4 15:57:12 Benign essential hypertension 4665512 Active 2023 THIAGO Gregorio Attn: Accountin g,[address] [facility], [place], [address], [place] - [facility] 4 14:07:54 Gastroesophage al reflux disease without esophagitis 105240014 Active 2023 THIAGO Gregorio Attn: Accountin g,[address] [facility], [place], [address], [place] - [facility] 4 14:17:47 Nausea 998206869 Active 2023 THIAGO Gregorio Attn: Dimas schultz,[address] [facility], [place], [address], [facility] - SI 19:00:45 Prediabetes 425421663 Active 2023 THIAGO Gregorio Attn: Dimas schultz,[address] [facility], [place], [address], [facility] - SI 23:05:51 Problem Notes None recorded. Procedures Surgical History Date Name Laterality Status Provider Name and Address Organization Details Recorded Time ligation of bilateral fallopian tubes completed Mony Peraza [place] - [facility] 09/12/2023 12:58:17 Imaging Results Imaging Date Name Status LastModified by Organization Details LastModified Time 01/01/2024 XR, chest completed [address], [address], 01/01/2024 21:32:40 01/01/2024 XR, chest completed [address], [address], 01/07/2024 14:41:09 01/01/2024 US, echocardiogram completed [facility] Inform ation not available 01/11/2024 16:06:09 01/01/2024 exercise stress test completed [facility] Information not available 01/15/2024 18:20:52 01/01/2024 lexiscan cardiolite stress test (PROC) completed [address], [address], 04/02/2024 18:58:09 Procedure Notes None recorded. Medical Equipment None Reported. Allergies Allergen ID Allergen Name Allergen Category Reaction Reaction Severity Criticality Documentation Date Start Date Code Code System Note Provider Name and Address Organization Details Recorded Time 492536 penicilla mine medicatio n Not available Not available Not available 09/12/2023 7975 RxNorm Not Available Not Available Not Available 937855 Macrobid medicatio n hives Not available Not available 02/02/2024 93358 1 RxNorm Not Available Not Available Not [...] Not Available Vitals Date Recorded Body height Body mass index (BMI) Body weight Respiratory rate Oxygen saturation Oxygen saturation in Arterial blood by Pulse oximetry Heart rate Provider Name and Address Organization Details Last Updated DateTime 4 172.72 cm 38.3 kg/m2 268036. 28 g 20 /min 95 % 95 % 86 /min Mony Peraza MA [facility] 4 12:29:01 Date Recorded Systolic blood pressure Diastolic blood pressure Systolic blood pressure Diastolic blood pressure Provider Name and Address Organization Details Last Updated DateTime 09/12/2023 118 mm[Hg] 90 mm[Hg] 120 mm[Hg] 90 mm[Hg] THIAGO Gregorio Attn: Accounting ,[address] [place], [address] , [place] - [facility] 4 12:57:30 Date Recorded Body height Body mass index (BMI) Body weight Respiratory rate Oxygen saturation Oxygen saturation in Arterial blood by Pulse oximetry Heart rate Systolic blood pressure Diastolic blood pressure Provider Name and Address Organization Details Last Updated DateTime 4 172.72 cm 38.4 kg/m2 094763. 35 g 20 /min 100 % 100 % 72 /min 128 mm[Hg] 88 mm[Hg] Mony Peraza MA [facility] 4 15:41:17 Date Recorded Systolic blood pressure Diastolic blood pressure Systolic blood pressure Diastolic blood pressure Provider Name and Address Organization Details Last Updated DateTime 12/27/2023 170 mm[Hg] 100 mm[Hg] 170 mm[Hg] 98 mm[Hg] THIAGO Montenegro Attn: Accounting ,[address] [place], [address] , [facility] 4 16:09:15 Date Recorded Body height Body mass index (BMI) Body weight Respiratory rate Oxygen saturation Oxygen saturation in Arterial blood by Pulse oximetry Heart rate Systolic blood pressure Diastolic blood pressure Provider Name and Address Organization Details Last Updated DateTime 4 172.72 cm 36.9 kg/m2 321946. 23 g 20 /min 97 % 97 % 77 /min 108 mm[Hg] 68 mm[Hg] Mony Peraza MA [facility] 4 11:27:31 Date Recorded Body height Body mass index (BMI) Body weight Respiratory rate Oxygen saturation Oxygen saturation in Arterial blood by Pulse oximetry Heart rate Systolic blood pressure Diastolic blood pressure Provider Name and Address Organization Details Last Updated DateTime 4 172.72 cm 35.5 kg/m2 334554. 82 g 20 /min 98 % 98 % 88 /min 122 mm[Hg] 82 mm[Hg] Mony Peraza MA [facility] 4 14:05:37 Date Recorded Systolic blood pressure Diastolic blood pressure Provider Name and Address Organization Details Last Updated DateTime 03/28/2024 128 mm[Hg] 80 mm[Hg] THIAGO Gregorio Attn: Accounting, [place], [address], [facility] 03/28/2024 14:23:17 Date Recorded Body height Body mass index (BMI) Body weight Respiratory rate Oxygen saturation Oxygen saturation in Arterial blood by Pulse oximetry Heart rate Systolic blood pressure Diastolic blood pressure Provider Name and Address Organization Details Last Updated DateTime 4 172.72 cm 33.6 kg/m2 188168. 91 g 20 /min 99 % 99 % 77 /min 126 mm[Hg] 82 mm[Hg] Mony Peraza MA [facility] 11:55:10 Date Recorded Systolic blood pressure Diastolic blood pressure Provider Name and Address Organization Details Last Updated DateTime 06/24/2024 118 mm[Hg] 80 mm[Hg] THIAGO Gregorio Attn: Accounting,[address] [facility], [place], [address], [facility] 06/24/2024 12:08:59 Social History Question Answer Notes LastModified by Organizat ion Details LastModified Time Tobacco Smoking Status Never Smoker Mony Peraza MA null, [facility] 09/12/2023 12:26:46 Do You Have An Advance [...] Anxious, Or Unable To Sleep At Night)? [id number] Information not available 12/27/2023 Do You Use [...] Problems N Kidney or Bladder Problems N Depression N COPD N Blood Clots N GI Problems N Skin Problems N Anemia N Heart Attack ([place]) N Diabetes N Anxiety Disorder N Muscle, Joint, or Bone Problems N Seizures/Epilepsy N Acid Reflux (GERD) N Cancer N Stroke N Allergies Y Asthma N High Cholesterol N Hepatitis N Liver Disease [...] Recorded Time Hep A, adult 07/06/1999 completed Mony Peraza [place] null, [place] - [facility] 06/24/2024 11:48:01 Hep A, adult 05/22/2000 completed Mony Peraza [place] null, [place] [facility] 06/24/2024 11:48:01 Past Encounters Encounter ID Performer Location Encounter Start Date Encounter Closed Date Diagnosis/Indication Diagnosis SNOMED-CT Code Diagnosis ICD10 Code Diagnosis Note [id number] THIAGO Gregorio [facility] [address] [place] [address] 09/12/2023 12:09:57 09/12/2023 13:00:18 Obesity 168434899 E66.9 refer for bariatric surgery consultati on. Hyperlipidemia 55517940 E78.5 stable on statin therapy. due for fasting lipid panel. Blood gluc ose outside reference range 340038409 R73.09 due for a1c screening. hx of elevated glucose ranges at times with a1c prediabete s range. Thyroid di sorder screening 485503928 Z13.29 routine thyroid panel ordered. Long-term drug therapy 495604715 Z79.899 routine cbc, cmp and b12 and folate labs are due. [id number] THIAGO Gregorio [facility] [employer] [address] [place] [address] 12/27/2023 15:27:26 12/27/2023 16:14:18 Hyperlipidemia 31263782 E78.5 she stopped cholestero l medication after her august labs. her labs were great on the medication but she stopped and wants to be off med. Obesity 158067846 E66.9 discussed healthy diet, exercise, controllin g carbohydra see and added sugars in the diet Blood gluc ose outside reference range 589686211 R73.09 5.9% a1c. Next labs are due in March. Encouraged lowering carbohydra te intake and lowering sugars in the diet. Long-term drug therapy 681901627 Z79.899 CBC and CMP due again in March Body mass index 30+ - obesity 918813715 Z68.38 BMI is 38.4. Patient is interested in starting that bound therapy. start zepbound injectable therapy. no personal or family hx of Medullary thyroid cancer or MEN conditions . Benign ess ential hypertension 4433704 I10 Start amlodipine 5 mg daily for blood pressure elevation of 170/98 today. Encouraged patient to check home blood pressure readings and report back via the portal to provider. Acute sinusitis 06976828 J01.90 Script for Z-Elie sent out for ongoing sinus/resp iratory symptoms for the last several weeks. [id number] John Bahena MD [facility] (Adult Med[facility] [address] [place] [address] 02/02/2024 11:14:23 02/02/2024 12:34:18 Urinary tract infectious disease 03544217 N39.0 [id number] THIAGO Gregorio [facility] - [place] [address] [place] [address] 03/28/2024 13:52:59 03/28/2024 14:46:09 Benign essential hypertension 7101673 I10 Blood pressure is well-contr olled on losartan 50 mg daily Hyperlipidemia 20396088 E78.5 she stopped cholestero l medication after her august labs. her labs were great on the medication but she stopped and wants to be off med. Repeat fasting lipids in August Blood gluc ose outside reference range 753707206 R73.09 5.8% a1c. Stable and improving repeat A1c in August Body mass index 30+ - obesity 669257220 Z68.38 BMI is down to 35.5. Fasting insulin ordered for next labs Obesity 918779714 E66.9 discussed healthy diet, exercise, controllin g carbohydra see and added sugars in the diet Long-term drug therapy 454517781 Z79.899 CBC and CMP due again in September 19, 2024 Gastroesop hageal reflux disease without esophagitis 659477588 K21.9 Continue omeprazole 40 mg daily for acid reflux management Adult [facility] th examination 596071047 Z00.01 Annual wellness exam completed Screening mammography 24 213728 Z12.31 Annual mammogram ordered Screening for malignant neoplasm of colon 736514350 Z12.11 Patient opts for Cologuard screening method, average risk Nausea 189427845 R11.0 P.r.n. script for dissolvabl e Zofran given to accompany Wegovy use when needed [id number] THIAGO Gregorio [facility] [place] [address] [place] [address] 06/24/2024 11:38:44 06/24/2024 15:11:29 Nausea 034003454 R11.0 P.r.n. script for dissolvabl e Zofran given to accompany Wegovy use when needed Body mass index 30+ - obesity 259080862 Z68.33 BMI is down to 33.6. Refill Wegovy 2.4 mg weekly Benign ess ential hypertension 4947579 I10 Blood pressure is well-contr olled on losartan 50 mg daily. 118/80 today Obesity 251890621 E66.9 discussed healthy diet, exercise, controllin g carbohydra see and added sugars in the diet Prediabetes 074440167 R7 3.03 5.8% a1c. Stable and improving [...] 1 [employer] [place] [address] [id number] Anel Fernandez 12/27/2023 1 [employer] [place] [address] An[address] [id number] Anel Fernandez 02/02/2024 1 [employer] [place] [address] Anel Moshe [id number] Anel Fernandez 03/28/2024 1 [employer] [place] [address] An[address] [id number] Anel Fernandez 06/24/2024 1 [employer] [place] [address] An[address] [id number] Anel Fernandez Notes Date Note Type Note Provider Name and Address Organization Details Recorded Time 4 text/html Generic HPI TemplateReported bypatient.Notes:pt is interested in gastric sleeve surgery.ObesityReported bypatient.Context:no oral steroids Associated Symptoms:no depression; no chronic illness; no Prader-Willi Syndrome Co-morbidities:overweight/o bese;impaired glucose tolerance;elevated cholesterol Lifestyle changes:changes in living situation;not losing weight THIAGO Gregorio Attn: Accounting,[address] [facility], [place], [address], [facility] 09/12/2023 22:43:46 4 text/html HyperlipidemiaReported bypatient.Notes:Patient has [...] few months. She has only been taking [id number]-jyi-rytxjug options and Singulair 10 mg daily. THIAGO Gregorio Attn: Accounting,[address] [facility], [place], [address], [facility] 01/07/2024 14:08:19 4 text/html on or around January 04 she started having a little bit back pain when she was in [place] does not remember 1 specific instance but [...] not John Bahena MD Attn: Accounting,[address] [facility], [place], [address], [facility] 02/02/2024 13:47:59 4 text/html HyperlipidemiaReported bypatient.Notes:Patient has [...] reviewed today. THIAGO Gregorio Attn: Accounting,[address] [facility], [place], [address], [facility] 04/02/2024 19:01:57 text/html HyperlipidemiaReported bypatient.Notes:Patient has been on statin [...] new year THIAGO Gregorio Attn: Accounting,[address] [facility], [place], [address], [facility] 07/02/2024 23:06:45 OBGyn Episode No OBEpisode recorded.
--- OUTSIDE RECORDS SUMMARY | 2024-08-08 00:37 | XMS_ITS | Referral Summary ---
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
--- OUTSIDE RECORDS SUMMARY | 2024-08-08 00:37 | XMS_ITS | Data Portability ---
Author Organization [facility] [employer], Main Office Address [address] [place] [address] Care Team Providers Care Spring Clipper Name Role Phone NALINI VLADIMIR Primary Care Provider [phone] VLADIMIR GAYLE Referring Provider Assessment Encounter Date Assessment Date Assessment LastModified by Organization Details LastModified Time 03/28/2023 03/28/2023 colonoscopy 2014, due 2024 [email or web address] Not available 03/28/2023 11:48:04 Plan of Treatment Reminders Order Date Submit Date Provider Last Modified By Organization Details Last Modified Time Details Appointments None recorded. Lab HbA1c (hemoglobin A1c), blood 2022 023 [email or web address] 4 [facility], [address], [place], [address], 3 14:49:18 insulin, serum 2022 023 [email or web address] [facility], [address], [place], [address], 4 10:22:30 CMP, serum or plasma 2022 023 [email or web address] 4 [facility], [address], [place], [address], 3 14:49:52 TSH + free T4, serum 2022 023 [email or web address] 4 [facility], [address], [place], [address], 3 14:49:31 urinalysis, dipstick, reflex micro 2022 023 [email or web address] [facility], [address], [place], [address], 4 10:22:31 iron + total iron-bindin g capacity (TIBC), serum 2022 023 [email or web address] [facility], [address], [place], [address], 4 10:22:30 ferritin, serum or plasma 2022 023 [email or web address] 4 [facility], [address], [place], [address], 3 14:50:21 CBC w/ auto diff 2022 023 [email or web address] [facility], [address], [place], [address], 4 10:22:30 lipid panel, serum 2022 023 [email or web address] [facility], [address], [place], [address], 4 10:22:30 HbA1c (hemoglobin A1c), blood 2022 023 [email or web address] [facility], [address], [place], [address], 4 10:22:31 insulin, serum 2022 023 [email or web address] [facility], [address], [place], [address], 4 10:22:31 CMP, serum or plasma 2022 023 [email or web address] [facility], [address], [address], [place], [address], 4 10:22:32 TSH + free T4, serum 2022 023 luba Lucia, [address], [address], [place], [address], 4 10:22:32 lipid panel, serum 2022 023 luba Martinezcostu, [address], [address], [place], [address], 4 10:22:31 urinalysis, dipstick, reflex micro 2022 023 luba Lucia, [address], [address], [place], [address], 4 10:22:32 iron + total iron-bindin g capacity (TIBC), serum 2022 023 luba Lucia, [address], [address], [place], [address], 4 10:22:31 ferritin, serum or plasma 2022 023 luba Lucia, [address], [address], [place], [address], 4 10:22:31 CBC w/ auto diff 2022 023 luba Luica, [address], [address], [place], [address], 4 10:22:32 Referral None recorded. Procedures None recorded. Surgeries None recorded. Imaging MAMMO, screening, digital, bilateral 2022 023 [email or web address] 4 [facility], [address], [address], [place], [address], 3 14:50:06 MAMMO, screening, digital, bilateral 2022 023 [email or web address] [facility], [address], [address], [place], [address], 4 10:07:51 DEXA 2022 023 [email or web address] [facility], [address], [address], [place], [address], 4 10:07:51 Medication Orders doxycycline hyclate 100 mg capsule 2022 023 [email or web address] [facility] [address] [place], [address], 3 11:48:15 Patient TargetsNo targets recorded. Patient [...] ciate your busin ess. Not Available [facility] ([facility]) [address] [facility], [place], [address], 07/10/2021 07:10:47 07/05/19 22 07/05/2021 AMBSHAYY ABBRE [...] ciate your busin ess. Not Available [facility] ([facility]) [address] [place], [address], 07/10/2021 07:10:47 07/05/19 22 07/06/2021 C-BUFFY CTIVE PROTE IN, QUANT C-reactive protein, quant 1 mg/L 0-10 Not Available [facility] ([facility]) [address] [place], [address], 07/10/2021 07:10:47 07/05/19 22 07/06/2021 JERSEY TIN ferritin 327 NG/mL 15-150 above high normal Not Available [facility] ([facility]) [address] [place], [address], 07/10/2021 07:10:46 07/05/19 22 07/06/2021 SEDIM ENTAT ION RATE- WESTE RGREN sedimentatio n rate-westerg madonna 7 mm/HR 0-40 Not Available [facility] ([facility]) [address] [place], [address], 07/10/2021 07:10:46 07/05/19 22 07/06/2021 ANTIN UCLEA R ANTIB ODIES DIREC T ELLYN direct negati ve negati ve Not Available [facility] ([facility]) [address] [place], [address], 07/10/2021 07:10:45 07/05/19 22 07/06/2021 URIC ACID uric acid 6.1 mg/dL 3.0-7. 2 Thera peuti c henri t for gout patie nts: <6.0 Not Available [facility] ([facility]) [address] [facility], [place], [address], 07/10/2021 07:10:45 07/05/19 22 07/06/2021 ANTI- CCP AB, IGG/I GA anti-ccp Ab, IgG/IgA 3 units 0-19 Negat rex <20 Weak posit rex 20 - 39 Moder ate posit rex 40 - 59 Stron g posit rex >59 Not Available [facility] ([facility]) [address] [facility], [place], [address], 07/10/2021 07:10:44 07/05/19 22 07/06/2021 RHEUM ATOID FACTO R (RF) rheumatoid factor (rf) 10.4 IU/mL <14.0 Not Available [facility] ([facility]) [address] [place], [address], 07/10/2021 07:10:44 07/05/19 22 07/06/2021 HEMOG LOBIN A1C hemoglobin A1C 5.7 % 4.8-5. 6 above high normal Predi abete s: 5.7 - 6.4 Diabe see: >6.4 Glyce pancho contr ol for adult s with diabe see: <7.0 Not Available [facility] ([facility]) [address] [place], [address], 07/10/2021 07:10:44 07/05/19 22 07/06/2021 IRON AND TIBC iron bind.cap.(TI BC) 299 ug/dL 250-45 0 Not Available [facility] ([facility]) [address] [place], [address], 07/10/2021 07:10:43 07/05/19 22 07/06/2021 IRON AND TIBC UIBC 197 ug/dL 131-42 5 Not Available [facility] ([facility]) [address] [facility], [place], [address], 07/10/2021 07:10:43 07/05/19 22 07/06/2021 IRON AND TIBC iron 102 ug/dL 27-159 Not Available [facility] ([facility]) [address] [place], [address], 07/10/2021 07:10:43 07/05/19 22 07/06/2021 IRON AND TIBC iron saturation 34 % 15-55 Not Available [facility] ([facility]) [address] [place], [address], 07/10/2021 07:10:43 07/05/19 22 07/06/2021 LIPID PANEL cholesterol, total 178 mg/dL 100-19 9 Not Available [facility] ([facility]) [address] [place], [address], 07/10/2021 07:10:43 07/05/19 22 07/06/2021 LIPID PANEL triglyceride s 149 mg/dL 0-149 Not Available [facility] ([facility]) [address] [place], [address], 07/10/2021 07:10:43 07/05/19 22 07/06/2021 LIPID PANEL HDL cholesterol 47 mg/dL >39 Not Available [facility] ([facility]) [address] [place], [address], 07/10/2021 07:10:43 07/05/19 22 07/06/2021 LIPID PANEL VLDL cholesterol kaylie 26 mg/dL 5-40 Not Available [facility] ([facility]) [address] [place], [address], 07/10/2021 07:10:43 07/05/19 22 07/06/2021 LIPID PANEL LDL chol calc ([facility]) 105 mg/dL 0-99 above high normal Not Available [facility] ([facility]) [address] [facility] [place], [address], 07/10/2021 07:10:43 07/05/19 22 07/06/2021 LIPID PANEL comment: manpower development advisor Not Available [facility] ([facility]) [address] [facility] [place], [address], 07/10/2021 07:10:43 07/05/19 22 07/06/2021 UA/M W/RFL X CULTU RE, COMP specific gravity 1.026 1.005- 1.030 Not Available [facility] ([facility]) [address] [facility], [place], [address], 07/10/2021 07:10:42 07/05/19 22 07/06/2021 UA/M W/RFL X CULTU RE, COMP pH 6.0 5.0-7. 5 Not Available [facility] ([facility]) [address] [facility] [place], [address], 07/10/2021 07:10:42 07/05/19 22 07/06/2021 UA/M W/RFL X CULTU RE, COMP urine-color yellow yellow Not Available [facility] ([facility]) [address] [facility] [place], [address], 07/10/2021 07:10:42 07/05/19 22 07/06/2021 UA/M W/RFL X CULTU RE, COMP appearance clear clear Not Available [facility] ([facility]) [address] [facility] [place], [address], 07/10/2021 07:10:42 07/05/19 22 07/06/2021 UA/M W/RFL X CULTU RE, COMP WBC esterase negati ve negati ve Not Available [facility] ([facility]) [address] [place], [address], 07/10/2021 07:10:42 07/05/19 22 07/06/2021 UA/M W/RFL X CULTU RE, COMP protein trace negati ve/tra ce Not Available [facility] ([facility]) [address] [place], [address], 07/10/2021 07:10:42 07/05/19 22 07/06/2021 UA/M W/RFL X CULTU RE, COMP glucose negati ve negati ve Not Available [facility] ([facility]) [address] [place], [address], 07/10/2021 07:10:42 07/05/19 22 07/06/2021 UA/M W/RFL X CULTU RE, COMP ketones trace negati ve abnormal Not Available [facility] ([facility]) [address] [place], [address], 07/10/2021 07:10:42 07/05/19 22 07/06/2021 UA/M W/RFL X CULTU RE, COMP occult blood negati ve negati ve Not Available [facility] ([facility]) [address] [place], [address], 07/10/2021 07:10:42 07/05/19 22 07/06/2021 UA/M W/RFL X CULTU RE, COMP bilirubin negati ve negati ve Not Available [facility] ([facility]) [address] [place], [address], 07/10/2021 07:10:42 07/05/19 22 07/06/2021 UA/M W/RFL X CULTU RE, COMP urobilinogen ,semi-qn 0.2 mg/dL 0.2-1. 0 Not Available [facility] ([facility]) [address] [facility], [place], [address], 07/10/2021 07:10:42 07/05/19 22 07/06/2021 UA/M W/RFL X CULTU RE, COMP nitrite, urine negati ve negati ve Not Available [facility] ([facility]) [address] [facility], [place], [address], 07/10/2021 07:10:42 07/05/19 22 07/06/2021 UA/M W/RFL X CULTU RE, COMP microscopic examination commen t Micro scopi c follo ws if indic ated. Not Available [facility] ([facility]) [address] [facility], [place], [address], 07/10/2021 07:10:42 07/05/19 22 07/06/2021 UA/M W/RFL X CULTU RE, COMP microscopic examination see below: Micro scopi c was indic ated and was perfo rmed. Not Available [facility] ([facility]) [address] [facility], [place], [address], 07/10/2021 07:10:42 07/05/19 22 07/06/2021 UA/M W/RFL X CULTU RE, COMP WBC 0-5 /hpf 0 - 5 Not Available [facility] ([facility]) [address] [place], [address], 07/10/2021 07:10:42 07/05/19 22 07/06/2021 UA/M W/RFL X CULTU RE, COMP RBC 0-2 /hpf 0 - 2 Not Available [facility] ([facility]) [address] [facility], [place], [address], 07/10/2021 07:10:42 07/05/19 22 07/06/2021 UA/M W/RFL X CULTU RE, COMP epithelial cells (non renal) >10 /hpf 0 - 10 abnormal Not Available [facility] ([facility]) [address] [facility], [place], [address], 07/10/2021 07:10:42 07/05/19 22 07/06/2021 UA/M W/RFL X CULTU RE, COMP epithelial cells (renal) manpower development advisor Not Available [facility] ([facility]) [address] [facility], [place], [address], 07/10/2021 07:10:42 07/05/19 22 07/06/2021 UA/M W/RFL X CULTU RE, COMP casts none seen /lpf none seen Not Available [facility] ([facility]) [address] [facility], [place], [address], 07/10/2021 07:10:42 07/05/19 22 07/06/2021 UA/M W/RFL X CULTU RE, COMP cast type manpower development advisor Not Available [facility] ([facility]) [address] [facility], [place], [address], 07/10/2021 07:10:42 07/05/19 22 07/06/2021 UA/M W/RFL X CULTU RE, COMP crystals manpower development advisor Not Available [facility] ([facility]) [address] [facility], [place], [address], 07/10/2021 07:10:42 07/05/19 22 07/06/2021 UA/M W/RFL X CULTU RE, COMP crystal type manpower development advisor Not Available [facility] ([facility]) [address] [facility], [place], [address], 07/10/2021 07:10:42 07/05/19 22 07/06/2021 UA/M W/RFL X CULTU RE, COMP mucus threads manpower development advisor Not Available [facility] ([facility]) [address] [place], [address], 07/10/2021 07:10:42 07/05/19 22 07/06/2021 UA/M W/RFL X CULTU RE, COMP bacteria modera te none seen/f ew abnormal Not Available [facility] ([facility]) [address] [facility], [place], [address], 07/10/2021 07:10:42 07/05/19 22 07/06/2021 UA/M W/RFL X CULTU RE, COMP yeast manpower development advisor Not Available [facility] ([facility]) [address] [facility], [place], [address], 07/10/2021 07:10:42 07/05/19 22 07/06/2021 UA/M W/RFL X CULTU RE, COMP trichomonas manpower development advisor Not Available [facility] ([facility]) [address] [facility], [place], [address], 07/10/2021 07:10:42 07/05/19 22 07/06/2021 UA/M W/RFL X CULTU RE, COMP comment manpower development advisor Not Available [facility] ([facility]) [address] [facility], [place], [address], 07/10/2021 07:10:42 07/05/19 22 07/06/2021 UA/M W/RFL X CULTU RE, COMP urinalysis reflex commen t This speci men has refle xed to a Urine Cultu re. Not Available [facility] ([facility]) [address] [facility], [place], [address], 07/10/2021 07:10:42 07/05/19 22 07/10/2021 UA/M W/RFL X CULTU RE, COMP urine culture,comp rehensive final report Not Available [facility] ([facility]) [address] [facility], [place], [address], 07/10/2021 07:10:42 07/05/19 22 07/10/2021 UA/M W/RFL X CULTU RE, COMP result 1 commen t Mixed uroge nital david Great er than 100,0 00 colon y formi ng units per mL Not Available [facility] ([facility]) [address] [place], [address], 07/10/2021 07:10:42 07/05/19 22 07/06/2021 COMP. METAB OLIC PANEL (14) AST (SGOT) 22 IU/L 0-40 Not Available [facility] ([facility]) [address] [place], [address], 07/10/2021 07:10:42 07/05/19 22 07/06/2021 COMP. METAB OLIC PANEL (14) ALT (SGPT) 22 IU/L 0-32 Not Available [facility] ([facility]) [address] [place], [address], 07/10/2021 07:10:42 07/05/19 22 07/06/2021 COMP. METAB OLIC PANEL (14) glucose 104 mg/dL 65-99 above high normal Not Available [facility] ([facility]) [address] [place], [address], 07/10/2021 07:10:42 07/05/19 22 07/06/2021 COMP. METAB OLIC PANEL (14) BUN 14 mg/dL 6-24 Not Available [facility] ([facility]) [address] [place], [address], 07/10/2021 07:10:42 07/05/19 22 07/06/2021 COMP. METAB OLIC PANEL (14) creatinine 0.85 mg/dL 0.57-1 .00 Not Available [facility] ([facility]) [address] [place], [address], 07/10/2021 07:10:42 07/05/19 22 07/06/2021 COMP. METAB OLIC PANEL (14) eGFR if nonafricn AM 76 mL/mi n/1.7 3 >59 Not Available [facility] ([facility]) [address] [facility], [place], [address], 07/10/2021 07:10:42 07/05/19 22 07/06/2021 COMP. METAB [...] a race varia ble. Not Available [facility] ([facility]) [address] [facility], [place], [address], 07/10/2021 07:10:42 07/05/19 22 07/06/2021 COMP. METAB OLIC PANEL (14) BUN/creatini ne ratio 16 9-23 Not Available [facility] ([facility]) [address] [facility], [place], [address], 07/10/2021 07:10:42 07/05/19 22 07/06/2021 COMP. METAB OLIC PANEL (14) sodium 142 mmol/ L 134-14 4 Not Available [facility] ([facility]) [address] [place], [address], 07/10/2021 07:10:42 07/05/19 22 07/06/2021 COMP. METAB OLIC PANEL (14) potassium 5.0 mmol/ L 3.5-5. 2 Not Available [facility] ([facility]) [address] [place], [address], 07/10/2021 07:10:42 07/05/19 22 07/06/2021 COMP. METAB OLIC PANEL (14) chloride 108 mmol/ L 96-106 above high normal Not Available [facility] ([facility]) [address] [place], [address], 07/10/2021 07:10:42 07/05/19 22 07/06/2021 COMP. METAB OLIC PANEL (14) carbon dioxide, total 22 mmol/ L Not Available [facility] ([facility]) [address] [place], [address], 07/10/2021 07:10:42 07/05/19 22 07/06/2021 COMP. METAB OLIC PANEL (14) calcium 9.6 mg/dL 8.7-10 .2 Not Available [facility] ([facility]) [address] [place], [address], 07/10/2021 07:10:42 07/05/19 22 07/06/2021 COMP. METAB OLIC PANEL (14) protein, total 7.0 g/dL 6.0-8. 5 Not Available [facility] ([facility]) [address] [place], [address], 07/10/2021 07:10:42 07/05/19 22 07/06/2021 COMP. METAB OLIC PANEL (14) albumin 4.3 g/dL 3.8-4. 9 Not Available [facility] ([facility]) [address] [place], [address], 07/10/2021 07:10:42 07/05/19 22 07/06/2021 COMP. METAB OLIC PANEL (14) globulin, total 2.7 g/dL 1.5-4. 5 Not Available [facility] ([facility]) [address] [place], [address], 07/10/2021 07:10:42 07/05/19 22 07/06/2021 COMP. METAB OLIC PANEL (14) A/G ratio 1.6 1.2-2. 2 Not Available [facility] ([facility]) [address] [place], [address], 07/10/2021 07:10:42 07/05/19 22 07/06/2021 COMP. METAB OLIC PANEL (14) bilirubin, total 0.4 mg/dL 0.0-1. 2 Not Available [facility] ([facility]) [address] [facility] [place], [address], 07/10/2021 07:10:42 07/05/19 22 07/06/2021 COMP. METAB OLIC PANEL (14) alkaline phosphatase 82 IU/L 44-121 Ple ase note refer ence inter claudette morley e Not Available [facility] ([facility]) [address] [facility] [place], [address], 07/10/2021 07:10:42 07/05/19 22 07/06/2021 CBC WITH DIFFE RENTI AL/PL ATELE T WBC 5.1 x10e3 /uL 3.4-10 .8 Not Available [facility] ([facility]) [address] [facility], [place], [address], 07/10/2021 07:10:41 07/05/19 22 07/06/2021 CBC WITH DIFFE RENTI AL/PL ATELE T RBC 5.01 x10e6 /uL 3.77-5 .28 Not Available [facility] ([facility]) [address] [place], [address], 07/10/2021 07:10:41 07/05/19 22 07/06/2021 CBC WITH DIFFE RENTI AL/PL ATELE T hemoglobin 15.1 g/dL 11.1-1 5.9 Not Available [facility] ([facility]) [address] [place], [address], 07/10/2021 07:10:41 07/05/19 22 07/06/2021 CBC WITH DIFFE RENTI AL/PL ATELE T hematocrit 44.5 % 34.0-4 6.6 Not Available [facility] ([facility]) [address] [place], [address], 07/10/2021 07:10:41 07/05/19 22 07/06/2021 CBC WITH DIFFE RENTI AL/PL ATELE T MCV 89 fL 79-97 Not Available [facility] ([facility]) [address] [facility], [place], [address], 07/10/2021 07:10:41 07/05/19 22 07/06/2021 CBC WITH DIFFE RENTI AL/PL ATELE T MCH 30.1 pg 26.6-3 3.0 Not Available [facility] ([facility]) [address] [facility], [place], [address], 07/10/2021 07:10:41 07/05/19 22 07/06/2021 CBC WITH DIFFE RENTI AL/PL ATELE T MCHC 33.9 g/dL 31.5-3 5.7 Not Available [facility] ([facility]) [address] [facility], [place], [address], 07/10/2021 07:10:41 07/05/19 22 07/06/2021 CBC WITH DIFFE RENTI AL/PL ATELE T RDW 12.2 % 11.7-1 5.4 Not Available [facility] ([facility]) [address] [facility], [place], [address], 07/10/2021 07:10:41 07/05/19 22 07/06/2021 CBC WITH DIFFE RENTI AL/PL ATELE T platelets 224 x10e3 /uL 150-45 0 Not Available [facility] ([facility]) [address] [place], [address], 07/10/2021 07:10:41 07/05/19 22 07/06/2021 CBC WITH DIFFE RENTI AL/PL ATELE T neutrophils 57 % not estab. Not Available [facility] ([facility]) [address] [place], [address], 07/10/2021 07:10:41 07/05/19 22 07/06/2021 CBC WITH DIFFE RENTI AL/PL ATELE T lymphs 30 % not estab. Not Available [facility] ([facility]) [address] [facility], [place], [address], 07/10/2021 07:10:41 07/05/19 22 07/06/2021 CBC WITH DIFFE RENTI AL/PL ATELE T monocytes 9 % not estab. Not Available [facility] ([facility]) [address] [facility], [place], [address], 07/10/2021 07:10:41 07/05/19 22 07/06/2021 CBC WITH DIFFE RENTI AL/PL ATELE T eos 3 % not estab. Not Available [facility] ([facility]) [address] [facility], [place], [address], 07/10/2021 07:10:41 07/05/19 22 07/06/2021 CBC WITH DIFFE RENTI AL/PL ATELE T basos 1 % not estab. Not Available [facility] ([facility]) [address] [facility], [place], [address], 07/10/2021 07:10:41 07/05/19 22 07/06/2021 CBC WITH DIFFE RENTI AL/PL ATELE T immature cells manpower development advisor Not Available [facility] ([facility]) [address] [facility], [place], [address], 07/10/2021 07:10:41 07/05/19 22 07/06/2021 CBC WITH DIFFE RENTI AL/PL ATELE T neutrophils (absolute) 2.9 x10e3 /uL 1.4-7. 0 Not Available [facility] ([facility]) [address] [place], [address], 07/10/2021 07:10:41 07/05/19 22 07/06/2021 CBC WITH DIFFE RENTI AL/PL ATELE T lymphs (absolute) 1.6 x10e3 /uL 0.7-3. 1 Not Available [facility] ([facility]) [address] [facility], [place], [address], 07/10/2021 07:10:41 07/05/19 22 07/06/2021 CBC WITH DIFFE RENTI AL/PL ATELE T monocytes(ab solute) 0.5 x10e3 /uL 0.1-0. 9 Not Available [facility] ([facility]) [address] [facility], [place], [address], 07/10/2021 07:10:41 07/05/19 22 07/06/2021 CBC WITH DIFFE RENTI AL/PL ATELE T eos (absolute) 0.2 x10e3 /uL 0.0-0. 4 Not Available [facility] ([facility]) [address] [facility], [place], [address], 07/10/2021 07:10:41 07/05/19 22 07/06/2021 CBC WITH DIFFE RENTI AL/PL ATELE T baso (absolute) 0.0 x10e3 /uL 0.0-0. 2 Not Available [facility] ([facility]) [address] [facility], [place], [address], 07/10/2021 07:10:41 07/05/19 22 07/06/2021 CBC WITH DIFFE RENTI AL/PL ATELE T immature granulocytes 0 % not estab. Not Available [facility] ([facility]) [address] [facility], [place], [address], 07/10/2021 07:10:41 07/05/19 22 07/06/2021 CBC WITH DIFFE RENTI AL/PL ATELE T immature grans (abs) 0.0 x10e3 /uL 0.0-0. 1 Not Available [facility] ([facility]) [address] [facility], [place], [address], 07/10/2021 07:10:41 07/05/19 22 07/06/2021 CBC WITH DIFFE RENTI AL/PL ATELE T NRBC manpower development advisor Not Available [facility] ([facility]) [address] [facility], [place], [address], 07/10/2021 07:10:41 07/05/19 22 07/06/2021 CBC WITH DIFFE RENTI AL/PL ATELE T hematology comments: manpower development advisor Not Available [facility] ([facility]) [address] [facility], [place], [address], 07/10/2021 07:10:41 07/05/19 22 07/06/2021 TSH+F REE T4 TSH 1.650 uIU/m L 0.450- 4.500 Not Available [facility] ([facility]) [address] [facility], [place], [address], 07/10/2021 07:10:41 07/05/19 22 07/06/2021 TSH+F REE T4 T4,free(dire ct) 1.17 NG/dL 0.82-1 .77 Not Available [facility] ([facility]) [address] [facility], [place], [address], 07/10/2021 07:10:41 02/16/20 21 02/15/2021 MAMMO , diagn ostic , digit al, unila teral No observ ation record ed. [id number] [facility] [address], [place], [address], 08/31/2022 08:48:43 02/17/20 21 02/04/2021 DEXA No observ ation record ed. [id number] [facility] [address], [place], [place], [id number], 08/31/2022 08:48:43 08/17/19 22 08/17/2021 MAMMO , diagn ostic , digit al, unila teral No observ ation record ed. [id number] [facility] [address], [place], [address], 08/31/2022 08:48:43 Result Notes None recorded. Problems Name Problem SNOMED Code Status Onset Date Resolution Date Notes Provider Name and Address Organization Details Recorded Time Acute bronchitis 94340297 Active Not Available [facility] 3 08:45:37 Dysfunctio n of bilateral eustachian tubes 7488486917306 100 Active 2021 Not Available [facility] 3 08:45:37 Disorder of shoulder 641614829 Active Not Available [facility] 3 08:45:37 Acute sinusitis 42856340 Active Not Available [facility] 3 08:45:37 Body mass index 30+ - obesity 264032035 Active Not Available [facility] 3 08:45:37 Blood glucose outside reference range 119509334 Active 2021 Not Available [facility] 3 08:45:37 Mammograph y abnormal 721277645 Active 2022 Not Available [facility] 3 08:45:37 Partial thickness rotator cuff tear 063177062 Active 2019 Not Available [facility] 3 08:45:37 Full thickness rotator cuff tear 469789872 Active 2018 Not Available [facility] 3 08:45:37 Synovitis and tenosynovi tis 355679421 Active Not Available [facility] 3 08:45:37 Abdominal pain 19766348 Active Not Available [facility] 3 08:45:37 Pain in pelvis 23582703 Active Not Available [facility] 3 08:45:37 Recurrent dislocatio n of shoulder region 67779991 Active Not Available [facility] 3 08:45:37 Influenza- like symptoms 504305646 Active Not Available [facility] 3 08:45:38 Bronchitis 10982745 Active Not Available [facility] 3 08:45:38 Multiple joint pain 26337802 Active 2021 Not Available [facility] 3 08:45:38 Serum ferritin above reference range 094189267 Active 2021 Not Available [facility] 3 08:45:38 Contact dermatitis 04048534 Active Not Available [facility] 3 08:45:38 Allergic conjunctiv itis 394030389 Active 2021 Not Available [facility] 3 08:45:38 Hip pain 18859039 Active Not Available [facility] 3 08:45:38 Cough 96075135 Active Not Available [facility] 3 08:45:38 Hyperlipid emia 31355787 Active 2021 Not Available [facility] 3 08:45:38 Disorder of bursa of shoulder region 60829263 Active Not Available [facility] 3 08:45:38 Allergic rhinitis 34454926 Active Not Available [facility] 3 08:45:38 Nasal congestion 42766696 Active Not Available [facility] 3 08:45:39 Candidiasi s of vagina 97705182 Active Not Available [facility] 3 08:45:39 Posterior rhinorrhea 96119906 Active Not Available [facility] 3 08:45:39 Overactive urinary bladder 048271550 Active 2021 Not Available [facility] 3 08:45:39 Spinal stenosis in cervical region 35769959 Active 2019 Not Available [facility] 3 08:45:39 Fatigue 41424182 Active Not Available [facility] 3 08:45:39 Maxillary sinusitis 34665231 Active Not Available [facility] 3 08:45:39 Weight gain 0814859 Active 2021 Not Available [facility] 3 08:45:39 Impaired glucose tolerance 2909907 Active 2021 Not Available [facility] 3 08:45:39 Problem Notes None recorded. Procedures Surgical History Date Name Laterality Status Provider Name and Address Organization Details Recorded Time 08/05/20 21 Most Recent Bone Density completed Not Available [facility] 08/31/2022 08:43:16 Hernia Repair completed Not Available [facility] 08/31/2022 08:43:17 complete repair of rotator cuff completed Not Available [facility] 08/31/2022 08:43:17 Colonoscopy completed Not Available [facility] 08/31/2022 08:43:17 CLINICAL EVALUATOR Surgery completed Not Available [facility] 08/31/2022 08:43:17 ligation of fallopian tube completed Not Available [facility] 08/31/2022 08:43:17 Imaging Results Imaging Date Name Status LastModified by Organiz ation Details LastModified Time 02/04/2021 DEXA completed [id number] [facility] [address], [place], [address], 08/31/2022 08:48:43 02/15/2021 MAMMO, diagnostic, digital, unilateral completed [id number] [facility] [address], [place], [address], 08/31/2022 08:48:43 08/17/2021 MAMMO, diagnostic, digital, unilateral completed [id number] [facility] [address], [place], [address], 08/31/2022 08:48:43 Procedure Notes None recorded. Medical Equipment None Reported. Allergies Allergen ID Allergen Name Allergen Category Reaction Reaction Severity Criticality Documentation Date Start Date Code Code System Note Provider Name and Address Organization Details Recorded Time Product containin g penicilli n and antibioti c (product) medicatio n rash Not available Not available 08/31/2022 20921 05 SNOMED Not Available [facility] 3 08:48:37 28101 Macrobid medicatio n rash moderate Not available 08/31/2022 16964 1 RxNorm Not Available [facility] 3 08:48:37 90538 Biaxin medicatio n itching severe Not available 08/31/202241551 9 RxNorm Not Available [facility] 3 08:48:37 Medications Name Sig Start Date [...] 1 gram solution for injection 09/08 completed [facility]#[phone] 1 Not Available Not Available Not [...] mg/mL suspensio n for injection 09/08 completed [facility]#[phone] 8 Not Available Not Available Not [...] administ ered by the provider 09/10 completed [facility]: [phone] 4 Not Available Not Available Not [...] administ ered by the provider 09/10 completed [facility]: [phone] 6-17 Not Available Not Available Not [...] index (BMI) Body mass index (BMI) Body height Body height Body height Oxygen saturation Oxygen saturation in Arterial blood by Pulse oximetry Oxygen saturation Oxygen saturation in Arterial blood by Pulse oximetry Oxygen saturation Oxygen saturation in Arterial blood by Pulse oximetry Heart rate Heart rate Heart rate Respiratory rate Respiratory rate Body temperature Body temperature Body temperature Body weight Body weight Body weight Systolic blood pressure Diastolic blood pressure Systolic blood pressure Diastolic blood pressure Systolic blood pressure Diastolic blood pressure Provider Name and Address Organization Details Last Updated DateTime 3 35.1 kg/m2 35.9 kg/m2 36.8 kg/m2 175.26 cm 175.26 cm 175.26 cm 96 % 96 % 97 % 97 % 97 % 97 % 73 /min 86 /min 81 /min 16 /min 16 /min 98.3 [degF] 97.8 [degF] 97.3 [degF] 189006. 98 g 617164. 95 g 921736. 5 g 120 mm[Hg] 80 mm[Hg] 120 mm[Hg] 80 mm[Hg] 120 mm[Hg] 80 mm[Hg] Not Available [facility] 3 08:44:13 Date Recorded Body height Body temperature Body mass index (BMI) Body weight Heart rate Oxygen saturation Oxygen saturation in Arterial blood by Pulse oximetry Systolic blood pressure Diastolic blood pressure Provider Name and Address Organization Details Last Updated DateTime 3 175.26 cm 97.9 [degF] 36.3 kg/m2 573019. 72 g 72 /min 97 % 97 % 124 mm[Hg] 80 mm[Hg] Ariane Samson RN [facility] [employer] 3 09:59:45 Date Recorded Body height Body weight Body temperature Heart rate Oxygen saturation Oxygen saturation in Arterial blood by Pulse oximetry Systolic blood pressure Diastolic blood pressure Provider Name and Address Organization Details Last Updated DateTime 3 175.26 cm 096491. 43 g 97.3 [degF] 70 /min 98 % 98 % 138 mm[Hg] 88 mm[Hg] Ariane Samson RN [facility] [employer] 3 11:16:33 Date Recorded Body mass index (BMI) Provider Name and Address Organization Details Last Updated DateTime 03/28/2023 34.3 kg/m2 THIAGO Gregorio [address] [place] [address], [place], [address], [facility] [employer] 03/28/2023 22:16:50 Social History Question Answer Notes LastModified by Organizat ion Details LastModified Time Tobacco Smoking Status Never Smoker Ariane Samson RN null, [facility] [employer] 09/19/2022 09:50:12 What Is Your Level Of Alcohol Consumption? Occasional [id number] Information not available 08/31/2022 What Is Your Level Of Caffeine Consumption? Heavy [id number] Information not available 08/31/2022 In The 14 Days Before Symptom Onset, Have You Had Close Contact With A Laboratory-confir med COVID-19 While That Case Was Ill? No [email or web address] Information not available 09/19/2022 In The 14 Days Before Symptom Onset, Have You Had Close Contact With A Person Who Is Under Investigation For COVID-19 While That Person Was Ill? No [email or web address] Information not available 09/19/2022 Are You Currently Employed? Yes [email or web address] Information not available 09/19/2022 What Type Of Diet Are You Following? REGULAR [id number] Information not available 08/31/2022 What Is The Highest Grade Or Level Of School You Have Completed Or The Highest Degree You Have Received? PA46442-3 [email or web address] Information not available 09/19/2022 What Is Your Occupation? [employer] [email or web address] Information not available 09/19/2022 Have There Been Any Changes To Your Family Or Social Situation? No [email or web address] Information no t available 09/19/2022 Have You Ever Been Counseled For Unhealthy Alcohol Use? No [email or web address] Information not available 09/19/2022 What Is Your Relationship Status? [id number] Information not available 08/31/2022 Do You Feel Stressed (tense, Restless, Nervous, Or Anxious, Or Unable To Sleep At Night)? [id number] [email or web address] Information not available 09/19/2022 Do You Use Any Illicit Or Recreational Drugs? No [email or web address] Information not available 09/19/2022 Has Tobacco Cessation Counseling Been Provided? No Information not available 09/19/2022 Have You Recently Traveled Abroad? No [email or web address] Information not available 09/19/2022 Do You Have Any Dietary Restrictions? No [email or web address] Information not available 09/19/2022 Do You Or Have You Ever Used Any Other Forms Of Tobacco Or Nicotine? No [email or web address] Information not available 09/19/2022 Sex: Unknown Functional Status Question Answer Note LastModified by Organizat ion Details LastModified Time What is your exercise level? None [id number] Information not available 08/31/2022 Mental Status None recorded. Family History Relationship Description Onset Age of this Age Resolved Age Notes LastModified by Organization Details LastModified Time Father Parkinson's disease wu Not available 09:50:12 Father Malignant tumor of lip [email or web address] Not available 09/19/2022 09:50:12 Daughter Disorder of thyroid gland [id number] Not available 08/31/2022 08:43:19 Notes:HISTORY OF MIGRAINES I N FAMILY/ALSO FIBROYD TUMORS AND CYSTS Medical History Condition Response URINARY/BLADDER/KIDNEY PROBLEMS Y OBESITY Y Gynecological History Statement/Question Response Abnormal Pap [...] PF, 0.5 mL 09/22/2020 completed Not Available [facility] 3 08:48:32 COVID-19 vaccine, vector-nr, rS-ChAdOx1, PF, 0.5 mL 09/03/2020 completed Not Available [facility] 3 08:48:32 Past Encounters Encounter ID Performer Location Encounter Start Date Encounter Closed Date Diagnosis/Indication Diagnosis SNOMED-CT Code Diagnosis ICD10 Code Diagnosis Note [id number] [facility] [place] [address] [place] [address] 03/16/2021 00:00:00 03/31/2021 23:24:45 [id number] [facility] [address] [place] [address] 09/14/2021 00:00:00 09/29/2021 23:54:29 [id number] [facility] [address] [place] [address] 03/23/2022 00:00:00 03/30/2022 00:33:49 [id number] THIAGO Gregorio [facility] [place] [address] [place] [address] 09/19/2022 09:48:25 09/19/2022 10:24:28 Impaired glucose tolerance 8571937 R73.03 5.7% on last A1c, due for new labs and insulin in march Hyperlipidemia 27854590 E78.5 stable on crestor 5mg daily. due for fasting lipids in mar. Serum ferr itin above reference range 896642141 R77.8 due for iron studies and CBC Multiple joint pain 3567 8005 M25.50 hx noted Allergic conjunctivitis 306803054 H10.10 on OTC antihistam ine and singulair 10mg daily Overactive urinary bladder 135211807 N32.81 stable on solifenaci n 10mg daily Long-term drug therapy 551235168 Z79.899 next labs due in mar Screening mammography 24 881769 Z12.31 mammogram ordered Acute sinusitis 20592740 J01.90 start doxy 100mg bid course. [id number] THIAGO Gregorio [facility] [place] [address] [place] [address] 03/28/2023 11:03:44 03/28/2023 11:53:42 Adult health examination 143322966 Z00.01 well exam completed Impaired g lucose tolerance 3094648 R73.03 5.7% on last A1c, due for new labs and insulin, still to get them completed Hyperlipidemia 47412716 E78.5 stable on crestor 5mg daily. due for fasting lipids Serum ferr itin above reference range 915331577 R77.8 due for iron studies and CBC Multiple joint pain 3567 8005 M25.50 hx noted, stable. Allergic conjunctivitis 251997336 H10.10 on OTC antihistam ine and singulair 10mg daily Overactive urinary bladder 669394579 N32.81 stable on solifenaci n 10mg daily. check UA Long-term drug therapy 829785703 Z79.899 CMP and TFTs due Screening mammography 24 639259 Z12.31 mammogram ordered Postmenopausal state 764 72259 Z78.0 due for dexa scan but she [...] Cool Member ID Guarantor Name 09/19/2022 1 [facility]: [employer] [address] Shalonda Fernandez [id number] Anel Eamon Fernandez 03/28/2023 1 [facility] [employer] [address] Fernandez [id number] Anel Fernandez Notes Date Note Type Note Provider Name and Address Organization Details Recorded Time 1 text/html HyperlipidemiaReported bypatient.Control:usually well controlled; improving; at goal Compliance:compliant; compliant with diet; exercises Complications:no coronary artery disease; no peripheral artery disease; no cardiovascular disease Not Available [facility] 03/31/2021 23:24:45 2 text/html HyperlipidemiaReported bypatient.Duration:chronic Control:usually well controlled Current Therapy:currently taking: (rosuvastatin 5mg); last cholesterol level: 178 date:; last LDL level: 105 date:; last triglyceride level: 149 date:; last HDL level: 47 date: Compliance:compliant;nonco mpliant with diet;does not exercise Complications:no coronary artery disease; no peripheral artery disease; no cardiovascular disease Not Available [facility] 09/29/2021 23:54:29 2 text/html HyperlipidemiaReported bypatient.Duration:chronic Control:usually well controlled Current Therapy:currently taking: (rosuvastatin 5mg) Compliance:compliant; compliant with diet;does not exercise Complications:no coronary artery disease; no peripheral artery disease; no cardiovascular disease Not Available [facility] 03/30/2022 00:33:49 3 text/html HyperlipidemiaReported bypatient.Control:usually well controlled; improving; at goal Compliance:compliant;nonco mpliant with diet;does not exercise Complications:no coronary artery disease; no peripheral artery disease; no cardiovascular disease pt here for 6 mo f/u THIAGO Gregorio, [facility], [place], [address], [facility] 09/30/2022 11:50:24 3 text/html HyperlipidemiaReported bypatient.Control:usually well controlled; improving; at goal Compliance:compliant;nonco mpliant with diet;does not exercise Complications:no coronary artery disease; no peripheral artery disease; no cardiovascular disease wellness THIAGO Gregorio [address], [place], [address], [facility] 03/28/2023 22:18:45 OBGyn Episode No OBEpisode recorded.
[2024-08-08 11:14] VITALS: BP 125/80; PULSE 71; RESP 18; TEMP 35.9; O2SAT 100; BMI 31.6
[2024-08-08] MEDS: LACTATED RINGERS 1,000 ML 150 ML IV CONT (11:22)
--- NOTE | 2024-08-08 11:56 | P.PNAN_ITS ---
Anes - Initial Pre Proc Eval Procedure: Operation Date: 08/08/24 12:30 Proposed Procedures p Colonoscopy - Pee Mccormick MD Date/Time: 08/08/24 11:56 Surgeon: Pee Mccormick MD Pre Op Diagnosis: fecal abnormalities Patient Data Age: 63 Gender: F Height: 1.73 m Weight: 94.2 kg Last Vital Signs Temp 35.9 C L 08/08/24 11:14 Pulse 71 08/08/24 11:14 Resp 18 08/08/24 11:14 BP 125/80 08/08/24 11:14 Pulse Ox 100 08/08/24 11:14 O2 Del Method Room Air 08/08/24 11:14 Allergies Allergy/AdvReac Type Severity Reaction Status Date / Time Penicillins Allergy Mild Rash Verified 08/08/24 11:09 codeine AdvReac Mild NAUSEA/VOMI Verified 08/08/24 11:09 TING Home Medications ?Medication ?Instructions ?Recorded ?Confirmed ?Type fluticasone propionate 50 1 spray intranasal DAILY 05/22/19 08/08/24 History mcg/actuation nasal spray,suspension (Flonase Allergy Relief) loratadine 10 mg tablet (Claritin) 10 mg PO DAILY 05/22/19 08/08/24 History solifenacin 5 mg tablet (Vesicare) 10 mg PO DAILY 05/22/19 08/08/24 History amlodipine 5 mg tablet 5 mg PO HS 01/01/24 08/08/24 History atorvastatin 40 mg tablet 40 mg PO HS #30 tabs 01/02/24 08/08/24 Rx omeprazole 40 mg capsule,delayed 40 mg PO DAILY #30 caps 01/02/24 08/08/24 Rx release losartan 50 mg tablet 50 mg PO DAILY 06/21/24 08/08/24 History ondansetron 4 mg disintegrating 4 mg PO BID PRN nausea and vomiting 06/21/24 06/21/24 History tablet semaglutide (weight loss) 1.7 1.7 mg subcut WEEKLY 06/21/24 08/08/24 History mg/0.75 mL subcutaneous pen injector ([employer]eg[employer]) Patient hx anesthesia problems: none Family hx anesthesia problems: none Results Review: All pre-operative results and documents have been reviewed as part of the pre- operative evaluation. PMFSH Past Medical History Medical History (Updated 08/08/24 @ 11:57 by Aquilino Cochran MD) Hyperlipidemia HTN (hypertension) Obesity Surgical History Surgical History (Updated 08/08/24 @ 11:57 by Aquilino Cochran MD) H/O laparoscopy History of shoulder surgery Family History Family History Mother Hypertension Family history of congestive heart failure Father Family history of diabetes mellitus in first degree relative Sibling Family history of diabetes mellitus in first degree relative Other Diabetes mellitus Family history of allergic disorder Family history of cardiovascular disease Social History Social History Smoking status: Never smoker Alcohol intake: current Drinks per week: 1 Substance use type: does not use Do You Feel Safe in your Home?: Yes Lack of Transportation: No Lack of Food: Never True Current Housing: I Have Housing Concerned About Future Housing: No Difficulty Paying Gas/Electric Bills: No Difficulty Paying for Meds: No Currently Unemployed: No Education: Decline to Answer Difficulty w/ Childcare or Family Care: No Living arrangements: with family Spiritual care concerns: No Anes - Eval Final PreProcedure Day of Procedure 08/08/24 11:56 Patient weight: obese Heart: regular rate and rhythm Lungs: clear to auscultation Airway: Mallampati scale class II Neurological: alert and oriented Last oral intake: >/= 8 hours ASA classification: II Emergent: no Anesthetic plan: proceed Anesthesia type and monitoring: general GIVS and standard monitoring Results Review: All pre-operative results and documents have been reviewed as part of the pre- operative evaluation. Informed Consent: The patient's anesthetic plan and its attendant risks and benefits were discussed with the patient/family/POA. Questions were solicited and answers provided to the satisfaction of the patient/family/POA.
--- NOTE | 2024-08-08 12:51 | PM.HPGS ---
History of Present Illness History of Present Illness Consent: Risks, benefits, and alternatives have been discussed and questions answered. Patient agrees to proceed with procedure. Chief complaint: fecal abnormalities Narrative: Anel Fernandez is a 63 year old female with + cologuard, last colonoscopy years ago Review of Systems Review of Systems: All systems reviewed & are unremarkable except as noted in HPI and below PMFSH Past Medical History Medical History (Updated 08/08/24 @ 12:52 by Pee Mccormick MD) Positive colorectal cancer screening using Cologuard test Hyperlipidemia HTN (hypertension) Obesity Surgical History Surgical History (Updated 08/08/24 @ 11:57 by Aquilino Cochran MD) H/O laparoscopy History of shoulder surgery Family History Family History Mother Hypertension Family history of congestive heart failure Father Family history of diabetes mellitus in first degree relative Sibling Family history of diabetes mellitus in first degree relative Other Diabetes mellitus Family history of allergic disorder Family history of cardiovascular disease Social History Social History Smoking status: Never smoker Alcohol intake: current Drinks per week: 1 Substance use type: does not use Do You Feel Safe in your Home?: Yes Lack of Transportation: No Lack of Food: Never True Current Housing: I Have Housing Concerned About Future Housing: No Difficulty Paying Gas/Electric Bills: No Difficulty Paying for Meds: No Currently Unemployed: No Education: Decline to Answer Difficulty w/ Childcare or Family Care: No Living arrangements: with family Spiritual care concerns: No Meds Home Medications and Allergies Home Medications ?Medication ?Instructions ?Recorded ?Confirmed ?Type fluticasone propionate 50 1 spray intranasal DAILY 05/22/19 08/08/24 History mcg/actuation nasal spray,suspension (Flonase Allergy Relief) loratadine 10 mg tablet (Claritin) 10 mg PO DAILY 05/22/19 08/08/24 History solifenacin 5 mg tablet (Vesicare) 10 mg PO DAILY 05/22/19 08/08/24 History amlodipine 5 mg tablet 5 mg PO HS 01/01/24 08/08/24 History atorvastatin 40 mg tablet 40 mg PO HS #30 tabs 01/02/24 08/08/24 Rx omeprazole 40 mg capsule,delayed 40 mg PO DAILY #30 caps 01/02/24 08/08/24 Rx release losartan 50 mg tablet 50 mg PO DAILY 06/21/24 08/08/24 History ondansetron 4 mg disintegrating 4 mg PO BID PRN nausea and vomiting 06/21/24 06/21/24 History tablet semaglutide (weight loss) 1.7 1.7 mg subcut WEEKLY 06/21/24 08/08/24 History mg/0.75 mL subcutaneous pen injector (Wejamilvy) Allergies Allergy/AdvReac Type Severity Reaction Status Date / Time Penicillins Allergy Mild Rash Verified 08/08/24 11:09 codeine AdvReac Mild NAUSEA/VOMI Verified 08/08/24 11:09 TING Vital Signs Vital Signs - 24 hr 08/08/24 11:14 Temperature 96.7 F L Pulse Rate 71 Respiratory Rate 18 Blood Pressure 125/80 Pulse Oximetry 100 Oxygen Delivery Room Air Exam Const: General: comfortable and no acute distress HENMT: Face/Nose/Sinus: Normal nares present Eyes: General: appearance normal, both eyes and all related structures Neck: Neck: no JVD Resp: Auscultation: clear to auscultation bilaterally Cardio: Rate: regular rate Rhythm: regular rhythm GI: Inspection: non-distended GI Palp: Yes Soft to palpation Skin: General skin exam: normal color Neuro: General: gait normal Speech: normal speech Extrem: General: normal to inspection Psych: Mental Status: mental status grossly normal Assessment and Plan Assessment and plan (1) Positive colorectal cancer screening using Cologuard test: Code(s): R19.5 - Other fecal abnormalities Status: Acute Assessment and Plan: colonoscopy
[2024-08-08 13:08] VITALS: BP 118/76; PULSE 72; RESP 18; O2SAT 98
[2024-08-08 13:18] VITALS: BP 113/77; PULSE 66; RESP 20; O2SAT 97
[2024-08-08 13:28] VITALS: BP 118/78; PULSE 60; RESP 20; O2SAT 99
== END 2024-08-08 13:39 | disposition home or self-care (01) ==
PROVIDERS: PCP Physician Assistant; Visit Provider Internal Medicine Gastroenterology
PROC: 0DJD8ZZ Inspection of Lower Intestinal Tract, Via Natural or Artificial Opening Endoscopic (ICD-10-PCS; CPT 45378; principal; 2024-08-08 12:30)
DX: R19.5 Other fecal abnormalities (principal); D12.5 Benign neoplasm of sigmoid colon; K64.8 Other hemorrhoids; E66.9 Obesity, unspecified; Z68.31 Body mass index [BMI] 31.0-31.9, adult
CPT/HCPCS: 45380; 88305; J2704; J7120

== ENCOUNTER 2024-11-12 09:16 | Outpatient (CLI) | payer BC, SELFPAY ==
--- NOTE | ~2024-11-12 | US_ITS ---
Limited Abdominal Sonogram: Real-time sonographic imaging of the right upper quadrant was performed. Clinical History: Right upper quadrant pain Findings: The liver appears normal with no evidence of mass lesion or bile duct dilatation. Main por amanda vein demonstrates normal direction of flow. The gallbladder is well distended, and appears normal with no evidence of gallstone or wall thickening. The common bile duct measures 3 mm. The visualize d pancreas, aorta, and IVC are unremarkable. Impression: No significant abnormality seen. Reviewed, dictated and finalized at location M. Impression: No significant abnormality seen.
== END 2024-11-12 09:17 | disposition home or self-care (01) ==
PROVIDERS: PCP Physician Assistant; Visit Provider Physician Assistant
DX: R10.11 Right upper quadrant pain (principal); R22.2 Localized swelling, mass and lump, trunk
CPT/HCPCS: 76705

== ENCOUNTER 2025-03-28 13:27 | Outpatient (CLI) | payer BC, SELFPAY ==
--- NOTE | ~2025-03-28 | MM_ITS ---
EXAMINATION: MM screening [facility] BI w joan HISTORY: Screening TECHNIQUE: Craniocaudal and mediolateral oblique 3-D tomosynthesis images were obtained and synthetic 2-D images were generated. CAD analysis was submitted and interpreted. COMPARISON: Comparison to multiple prior studies sequentially, with oldest reviewed study dated 01/25/2017. BREAST PARENCHYMAL COMPOSITION: Not dense: There are scattered areas of fibroglandular density. FINDINGS: There is no evidence of suspicious mass, calcification, or architectural distortion to suggest malignancy in either breast. There has been no suspicious interval change. IMPRESSION: 1. No mammographic evidence of malignancy. 2. Recommend routine screening mammography in one year. BI-RADS Category 1: Negative Reviewed, dictated and finalized at location B.
== END 2025-03-28 13:28 | disposition home or self-care (01) ==
LOC: MICIMG 13:28
PROVIDERS: PCP Physician Assistant; Visit Provider Physician Assistant
DX: Z12.31 Encounter for screening mammogram for malignant neoplasm of breast (principal)
CPT/HCPCS: 77063; 77067

== ENCOUNTER 2025-06-03 10:43 | Outpatient (CLI) | payer BC, SELFPAY ==
--- NOTE | 2025-06-03 11:00 | NEURO_ITS ---
Impression: # Complains of numbness of hands and feet. ? # Left Carpal Tunnel Syndrome. ? # Right Ulnar Neuropathy across the elbow. ? # Borderline axonal Neuropathy involving lower extremities. ? # Needle/ EMG exam mildly neurogenic in extensor digitorum brevis. Nerve Conduction Studies ?Stim Site NR Peak (ms) P-T Amp (?V) Site1 Site2 Delta-P (ms) Dist (cm) Dre (m/s) Left Median Anti Sensory (2-3nd Digit) Wrist ? 4.3 13.8 Wrist 2-3nd Digit 4.3 14.0 33 Wrist ? 4.1 15.2 Wrist 2-3nd Digit 4.3 14.0 33 Right Median Anti Sensory (2-3nd Digit) Wrist ? 3.8 7.3 Wrist 2-3nd Digit 3.8 14.0 37 Wrist ? 4.1 7.8 Wrist 2-3nd Digit 3.8 14.0 37 Left Radial Anti Sensory (Base 1st Digit) Wrist ? 2.3 15.2 Wrist Base 1st Digit 2.3 0.0 Right Radial Anti Sensory (Base 1st Digit) Wrist ? 2.6 11.0 Wrist Base 1st Digit 2.6 0.0 Left Sup Fibular Anti Sensory (Ant Lat Mall) 14 cm ? 3.7 2.4 14 cm Ant Lat Mall 3.7 16.0 43 Right Sup Fibular Anti Sensory (Ant Lat Mall) 14 cm ? 3.6 1.5 14 cm Ant Lat Mall 3.6 16.0 44 Left Sural Anti Sensory (Lat Mall) Calf ? 4.0 8.0 Calf Lat Mall 4.0 16.0 40 Right Sural Anti Sensory (Lat Mall) Calf ? 4.0 7.9 Calf Lat Mall 4.0 16.0 40 Left Ulnar Anti Sensory (5th Digit) Wrist ? 3.0 16.5 Wrist 5th Digit 3.0 14.0 47 Right Ulnar Anti Sensory (5th Digit) Wrist ? 2.4 16.6 Wrist 5th Digit 2.4 14.0 58 ?Stim Site NR Onset (ms) O-P Amp (mV) Site1 Site2 Delta-0 (ms) Dist (cm) Dre (m/s) Left Median Motor (Abd Poll Brev) Wrist ? 5.0 2.2 Elbow Wrist 5.7 31.0 54 Elbow ? 10.7 2.0 Right Median Motor (Abd Poll Brev) Wrist ? 4.1 4.1 Elbow Wrist 4.9 27.0 55 Elbow ? 9.0 4.1 Left Peroneal Motor (Vastus Med) Ankle ? 3.7 4.5 Popit Ankle 9.0 39.0 43 Popit ? 12.7 3.6 Right Peroneal Motor (Vastus Med) Ankle ? 4.0 5.2 Popit Ankle 8.7 39.0 45 Popit ? 12.7 4.4 Left Tibial Motor (Abd Baron Brev) Ankle ? 3.8 3.5 Knee Ankle 9.9 42.0 42 Knee ? 13.7 2.1 Right Tibial Motor (Abd Baron Brev) Ankle ? 3.8 1.4 Knee Ankle 9.6 41.0 43 Knee ? 13.4 1.4 Left Ulnar Motor (Abd Dig Minimi) Wrist ? 2.9 7.8 A Elbow Wrist 5.5 32.0 58 A Elbow ? 8.4 7.0 B Elbow Wrist 4.0 23.0 58 B Elbow ? 6.9 7.7 Right Ulnar Motor (Abd Dig Minimi) Wrist ? 2.6 8.1 A Elbow Wrist 5.8 30.0 52 A Elbow ? 8.4 6.5 B Elbow Wrist 4.2 21.0 50 B Elbow ? 6.8 5.1 F Wave Studies ?NR F-Lat (ms) L-R F-Lat (ms) Left Median (Mrkrs) (Abd Poll Brev) ? 30.63 2.71 Right Median (Mrkrs) (Abd Poll Brev) ? 27.91 2.71 Left Peroneal (Mrkrs) (EDB) ? 51.26 1.45 Right Peroneal (Mrkrs) (EDB) ? 49.81 1.45 Left Tibial (Mrkrs) (Abd Hallucis) ? 51.19 3.51 Right Tibial (Mrkrs) (Abd Hallucis) ? 54.69 3.51 Left Ulnar (Mrkrs) (Abd Dig Min) ? 28.36 0.47 Right Ulnar (Mrkrs) (Abd Dig Min) ? 27.89 0.47 Electromyography ?Side Muscle Nerve Root Ins Act Fibs Amp Dur Recrt Comment Right 1stDorInt Ulnar C8-T1 Nml Nml Nml Nml Nml Left 1stDorInt Ulnar C8-T1 Nml Nml Nml Nml Nml Right ABD Dig Min Ulnar C8-T1 Nml Nml Nml Nml Nml Left ABD Dig Min Ulnar C8-T1 Nml Nml Nml Nml Nml Right Abd Poll Brev Median C8-T1 Nml Nml Nml Nml Nml Left Abd Poll Brev Median C8-T1 Nml Nml Nml Nml Nml Left Abd Poll Long Radial (Post Int) C7-8 Nml Nml Nml Nml Nml Right Abd Poll Long Radial (Post Int) C7-8 Nml Nml Nml Nml Nml Right AntTibialis Dp Br Fibular L4-5 Nml Nml Nml Nml Nml Left AntTibialis Dp Br Fibular L4-5 Nml Nml Nml Nml Nml Right BrachioRad Radial C5-6 Nml Nml Nml Nml Nml Left BrachioRad Radial C5-6 Nml Nml Nml Nml Nml Right Ext Dig Brev Dp Br Fibular L5, S1 Nml Nml Decr >12ms Nml Left Ext Dig Brev Dp Br Fibular L5, S1 Nml Nml Decr >12ms Nml Right Ext Digitorum Radial (Post Int) C7-8 Nml Nml Nml Nml Nml Left Ext Digitorum Radial (Post Int) C7-8 Nml Nml Nml Nml Nml Right Ext Indicis Radial (Post Int) C7-8 Nml Nml Nml Nml Nml Left Ext Indicis Radial (Post Int) C7-8 Nml Nml Nml Nml Nml Right Fibularis Long Sup Br Fibular L5-S1 Nml Nml Nml Nml Nml Left Fibularis Long Sup Br Fibular L5-S1 Nml Nml Nml Nml Nml Right Flex Dig Long Tibial L5-S2 Nml Nml Nml Nml Nml Left Flex Dig Long Tibial L5-S2 Nml Nml Nml Nml Nml Right FlexPolLong Median (Ant Int) C7-8 Nml Nml Nml Nml Nml Left FlexPolLong Median (Ant Int) C7-8 Nml Nml Nml Nml Nml Right Gastroc Tibial S1-2 Nml Nml Nml Nml Nml Left Gastroc Tibial S1-2 Nml Nml Nml Nml Nml Left PronatorTeres Median C6-7 Nml Nml Nml Nml Nml Right PronatorTeres Median C6-7 Nml Nml Nml Nml Nml Right QuadratusFem QuadFemoris L4-5, S1 Nml Nml Nml Nml Nml Left QuadratusFem QuadFemoris L4-5, S1 Nml Nml Nml Nml Nml
--- OUTSIDE RECORDS SUMMARY | 2025-06-03 11:43 | XMS_ITS | Clinical Summary ---
Author Organization [facility] Address [address] [place] [id number] Care Team Providers Care Junior Underwriter Name Role Phone Waleska Deleon Primary Care [...] Former Cigarettes 1 10 1 978 - [id number] Smokeless Tobacco: Never AUDIT-C Answer [...] on file Legal Sex Female 4:26 PM [employer] Gender Identity Not on file Sexual Orientation [...] CDT without shoes Height 172.7 cm (5' 8) 12/15/2021 2:15 PM CDT Body Mass Index 37.74 12/15/2021 2:15 PM CDT Plan of Treatment Not on file Insurance [facility] Care Teams Junior Underwriter Relationship Specialty Start Date End Date Waleska Deleon PA PCP - General Physician Learning Support Services Director 10/04/21
== END 2025-06-03 10:44 | disposition home or self-care (01) ==
LOC: ANHNEURO 10:45
PROVIDERS: PCP Physician Assistant; Visit Provider Physician Assistant
DX: G56.02 Carpal tunnel syndrome, left upper limb (principal); G56.21 Lesion of ulnar nerve, right upper limb
CPT/HCPCS: 95886; 95913